=== PATIENT | female | born 1945 | race Caucasian/White ===

== ENCOUNTER 2017-05-09 18:24 | Inpatient (IN) ==
[2017-05-09 19:56] LABS: MANUAL DIFF NEEDED? NO
[2017-05-09 20:07] LABS: BASO% 0.2 % (0.0-0.8); EOS# 0.16 X1000 (0.0-0.7); EOS% 1.4 % (0.0-10.0); HEMATOCRIT 37.6 % (37.0-47.0); HEMOGLOBIN 13.2 g/dL (12.0-16.0); IMM GRAN# 0.02 X1000 (0.0-0.04); IMM GRAN% 0.2 % (0.0-0.5); LYMPH# 1.61 X1000 (1.2-3.4); LYMPH% 14.5 % (20.5-51.1); MCH 27.6 PG (27-31); MCHC 35.1 g/dL (33-37); MCV 78.7 FL (81-99); MONO# 0.65 X1000 (0.11-0.59); MONO% 5.8 % (1.7-9.3); MPV 12.4 FL (7.4-10.4); NEUT% 77.9 % (42.2-75.2); PLT 129 X1000 (130-400); RBC 4.78 XMIL (4.2-5.4)
[2017-05-09] MEDS: ZOFRAN IV PRN (20:25)
[2017-05-09] MEDS: NS 1,000 ML IV SCH (20:26)
[2017-05-09 21:09] LABS: ALBUMIN 4.1 g/dL (3.5-5.0); CALCIUM 9.8 mg/dL (8.8-10.2); POTASSIUM 5.6 mmol/L (3.5-5.1); TOTAL BILIRUBIN 0.84 mg/dL (0.20-1.00); TOTAL PROTEIN 7.9 g/dL (6.3-8.3)
[2017-05-09] MEDS ORDERED: KAYEXALATE PO ONE (21:20)
[2017-05-09] MEDS ORDERED: NS 500 ML IV ONE (21:20)
[2017-05-09] MEDS: LANTUS SUBQ SCH (21:44)
[2017-05-09] MEDS: ULTRAM PO PRN (22:40)
[2017-05-09] MEDS: ROBAXIN PO PRN (22:40)
[2017-05-09] MEDS: DESYREL PO PRN (22:40)
--- NOTE | 2017-05-09 22:45 | HISTORY AND PHYSICAL ---
PRIMARY CARE PHYSICIAN: Giovani Mariee MD. CHIEF COMPLAINT: Abdominal pain, nausea, vomiting. HISTORY OF PRESENT ILLNESS: A 71-year-old, white female with a complicated past medical history presents for evaluation of the above-mentioned symptoms. Current history of present illness began on Saturday. At that time, the patient developed profound fatigue. The patient states she attributed this to a busy weekend. She required significant rest and stayed in bed the vast majority of the time on Saturday and Saturday. Yesterday, symptoms increased to include nausea, vomiting, and abdominal discomfort. She has had subjective fevers, but denies chills, hematochezia, melena, urinary symptoms, and shortness of breath. PO intake has been minimal. Her bowel movements have been unchanged without evidence of melena or hematochezia. Because of the patient's progressive symptoms, patient presented to my office for further evaluation and management. Patient was found to have intractable nausea and vomiting with hyponatremia. Patient will be admitted to the hospital for full evaluation and management of this condition. Of note, patient has had a sick contact in her . He suffered from a GI illness last week. In addition to the above-mentioned symptoms, patient complains of increasing reflux with associated belching. Otherwise, she denies significant cardiac symptoms including palpitations or shortness of breath. PAST MEDICAL HISTORY: 1. Allergic rhinitis. 2. History of an abnormal skin examination with multiple seborrheic keratoses, rosacea, and edema. 3. Mild carotid artery disease. 4. History of multiple episodes of chest pain with negative echocardiography and stress testing. 5. Cholelithiasis status post laparoscopic cholecystectomy in 1993. 6. Iron deficiency anemia. 7. Type 2 diabetes, insulin dependent. 8. Reflux disease. 9. Hypertension. 10. Menorrhagia status post ISHAAN/unilateral S0 in 1973. 11. Syncope diagnosed in early 1999. 12. Nonalcoholic fatty liver disease with associated cirrhosis. 13. Hypothyroidism. 14. Low back pain. 15. Depression. 16. Obesity. 17. Osteoarthritis. 18. Osteopenia. 19. History of peptic ulcer disease in the . 20. Postmenopausal state. 21. Family history of ischemic heart disease. 22. Chronic thrombocytopenia. 23. Insomnia. 24. History of urethral diverticulum status post resection in 2012. 25. Mild valvular heart disease. 26. Intermittent headaches. CURRENT MEDICATIONS: 1. Aspirin 81 mg daily. 2. Evista 60 mg daily. 3. Lantus 10 units at bedtime. 4. Humalog 2 units with meals. 5. Irbesartan 300 mg daily. 6. Levothyroxine 137 mcg daily. 7. Pantoprazole 40 mg daily. 8. Robaxin as needed. 9. Phenergan as needed. 10. Spironolactone 50 mg daily. 11. Tramadol 1 tablet 3 times daily as needed. 12. Trazodone 50 mg at bedtime. ALLERGIES: 1. Patient states she is allergic to dobutamine which caused a near syncopal episode. 2. Iron which causes nausea and vomiting. 3. Lexapro which causes nausea and vomiting. SOCIAL HISTORY: Patient is a former smoker. She quit in 1958. She smoked socially for 1 year. She quit alcohol in 1986. She denies illicit drug use. 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 She enjoys traveling and exercises intermittently. FAMILY HISTORY: Patient's father passed at age 72 secondary to complications of Alzheimer's dementia. Patient's mother passed at age 82 secondary to complications of acute myocardial infarction. She has a history of hyperlipidemia, atrial fibrillation, and diabetes. REVIEW OF SYSTEMS: A 12 point review of systems was performed. Pertinent positives and negatives noted in history present illness. PHYSICAL EXAMINATION: VITAL SIGNS: Temperature 98.5 degrees, heart rate 69, respirations 18, blood pressure is 146/66. GENERAL: Ill-appearing, in no acute distress. HEENT: Normocephalic, atraumatic. Pupils equal, round, reactive to light. Extraocular muscles intact. Sclerae anicteric. [place] conjunctivae. Oral and nasopharynx clear without exudate. NECK: Supple. No lymphadenopathy. No thyromegaly. No bruits auscultated. CARDIOVASCULAR: Regular rate and rhythm. No significant murmurs, rubs, or gallops. PULMONARY: Clear to auscultation bilaterally. ABDOMEN: Soft. Tender in the epigastric region. Nondistended. Positive bowel sounds. EXTREMITIES: Moves all extremities well. No significant clubbing, cyanosis, or edema. NEUROLOGIC EXAMINATION: Cranial nerves 2 through 12 grossly intact. Motor and sensory grossly intact. PSYCHOLOGIC: Examination is appropriate. LABORATORY DATA: White blood cell count 11.13, hemoglobin 13.2, hematocrit 37.6 , platelet count 129,000. Sodium 127, potassium 5.6, chloride 88, bicarbonate 21, BUN 44, creatinine 1.2, glucose 127, calcium 9.8, total bilirubin 0.84, total protein 7.9, albumin 4.1, alkaline phosphatase 61, AST 27, ALT 24, amylase 81, lipase 89. ASSESSMENT AND PLAN: A 71-year-old, white female with a very complicated past medical history presents for evaluation of intractable nausea and vomiting. In addition, patient has been found to have hyponatremia, mild hyperkalemia, and mild renal insufficiency. Patient will be admitted to the hospital for full evaluation and management of each of these conditions. 1. Admit to General Medicine. 2. Intractable nausea and vomiting - I suspect this is secondary to an underlying viral illness as her recently has exhibited similar symptoms. We will start patient on cautious hydration. We will initiate as needed Zofran. We will follow patient's clinical course closely. 3. Hyponatremia - Patient's sodium is 127. We will start patient on normal saline fluid replacement. We will follow serial sodium evaluations. 4. Hyperkalemia - This likely is secondary to a combination of minimal renal insufficiency and spironolactone use. We will cautiously, but aggressively hydrate. We will follow serial evaluations. We will provide 1 dose of Kayexalate. 5. Mild renal insufficiency - Patient's BUN is 44 and creatinine 1.2. As above , we will initiate cautious hydration. 6. Profound weakness - This likely is secondary to her above condition. We will follow this. 7. Nonalcoholic cirrhosis - We will remain aware, especially in the setting of hydration. At this point, I suspect this is noncontributory, however, we will remain aware that abdominal discomfort could be secondary to spontaneous bacterial peritonitis. I do not , however, appreciate a significant amount of fluid on examination today. 8. Abdominal discomfort - As above, I suspect this is secondary to a viral illness. We will remain aware. 9. Hypertension - Patient's antihypertensive agents will be held for right now. We will reinitiate these when acceptable. 10. Fluid, electrolytes, nutrition. We will monitor electrolytes. Normal saline bolus of 500 mL followed by NS at KVO. 11. Prophylaxis- Patient will be placed on SCDs. cc: MD CAMACHO Paredes
[2017-05-09 23:03] LABS: URINE MICRO REVIEW NEEDED? NO; URINE SOURCE CLEAN CATCH
[2017-05-09 23:58] LABS: BILIRUBIN URINE NEGATIVE (NEGATIVE); BLOOD URINE NEGATIVE (NEGATIVE); COLOR YELLOW; GLUCOSE URINE NEGATIVE (NEGATIVE); LEUKOCYTES URINE MODERATE (NEGATIVE); NITRITE URINE NEGATIVE (NEGATIVE); PH URINE 5.5; PROTEIN URINE NEGATIVE (NEGATIVE); SP GRAVITY URINE 1.018; TURBIDITY URINE CLEAR (CLEAR); UROBILINOGEN URINE NORMAL (NORMAL)
[2017-05-09 23:59] LABS: UR EPITHELIAL CELLS <10 /HPF (<10); URINE BACTERIA NEGATIVE /HPF; URINE RBC <10 /HPF (<10)
[2017-05-10 00:07] LABS: URINE CULTURE NEEDED? YES
[2017-05-10] MEDS: ZOFRAN IV PRN (00:37)
[2017-05-10] MEDS: HUMALOG SUBQ SCH ×3 (06:05→16:31)
[2017-05-10] MEDS: NS 1,000 ML IV SCH (06:05)
[2017-05-10 06:58] LABS: MANUAL DIFF NEEDED? NO
[2017-05-10 07:17] LABS: BASO% 0.1 % (0.0-0.8); EOS# 0.13 X1000 (0.0-0.7); EOS% 1.4 % (0.0-10.0); HEMATOCRIT 33.5 % (37.0-47.0); HEMOGLOBIN 11.7 g/dL (12.0-16.0); IMM GRAN# 0.02 X1000 (0.0-0.04); IMM GRAN% 0.2 % (0.0-0.5); LYMPH# 1.34 X1000 (1.2-3.4); LYMPH% 14.9 % (20.5-51.1); MCH 27.7 PG (27-31); MCHC 34.9 g/dL (33-37); MCV 79.2 FL (81-99); MONO# 0.78 X1000 (0.11-0.59); MONO% 8.7 % (1.7-9.3); MPV 11.1 FL (7.4-10.4); NEUT% 74.7 % (42.2-75.2); PLT 97 X1000 (130-400); RBC 4.23 XMIL (4.2-5.4)
[2017-05-10 07:30] LABS: ALBUMIN 3.8 g/dL (3.5-5.0); CALCIUM 9.2 mg/dL (8.8-10.2); POTASSIUM 4.9 mmol/L (3.5-5.1); TOTAL BILIRUBIN 0.72 mg/dL (0.20-1.00)
[2017-05-10] MEDS ORDERED: BENTYL PO PRN (08:57)
[2017-05-10] MEDS ORDERED: BENTYL PO ONE (08:57)
[2017-05-10] MEDS: SYNTHROID PO SCH (09:55)
[2017-05-10] MEDS: ASPIRIN PO SCH (09:56)
[2017-05-10] MEDS: PROTONIX PO SCH (09:56)
[2017-05-10] MEDS: ROCEPHIN 1 GM/NS 1 GM/50 ML IVPB IV SCH (09:56)
[2017-05-10] MEDS: EVISTA PO SCH (09:56)
--- NOTE | 2017-05-10 19:01 | PROGRESS NOTE ---
DATE: 05/10/2017 SUBJECTIVE: The patient was admitted yesterday with intractable abdominal pain, nausea, and vomiting. Laboratory data was significant for hyponatremia and hyperkalemia. Patient was started on cautious hydration. Kayexalate was provided. Over the course of the 1st 12 hours, patient's overall condition improved. The patient was initially seen this morning. She continued to complain of significant abdominal discomfort and intermittent nausea. A dose of Bentyl therapy was provided secondary to cramping. Throughout the day today, patient's overall condition improved. She began to tolerate p.o. This evening, she states she is feeling much better. She denies fevers, chills, current nausea, recent vomiting, shortness of breath, or chest discomfort. OBJECTIVE: T-max is 98.5 degrees, heart rate 68-89, respirations 14 blood pressure 121 to 122 over 52 to 58.General: Well nourished, well developed, no acute distress. Cardiovascular: Regular rate and rhythm. No significant murmurs, rubs, or gallops. Pulmonary: Clear to auscultation bilaterally. Abdomen: Soft, diffusely tender without guarding or rebound. Positive bowel sounds. Extremities: Moves all extremities well. No significant clubbing, cyanosis, or edema. Dermatologic: Evaluation reveals no evidence of rash. LABORATORY DATA: White blood cell count 8.98, hemoglobin 11.7, hematocrit 33.5, platelet count 97,000. Sodium 131, potassium 4.9, chloride 95, bicarb 22, BUN 40, creatinine 1.3, glucose 134. Calcium 9.2, total bilirubin 0.72, total protein 7.0, albumin 3.8, alkaline phosphatase 56, AST 27, ALT 21. ASSESSMENT AND PLAN: 1. Intractable nausea and vomiting - I suspect this was secondary to a viral illness. The patient has achieved improvement. We will continue as needed Zofran therapy. We will cautiously hydrate. 2. Abdominal cramping - I suspect this is secondary to her viral illness. We will continue as needed Bentyl therapy as she has achieved improvement. 3. Hyponatremia - patient achieved improvement with hydration. We will continue current rate of normal saline. 4. Hyperkalemia - patient achieved improvement with hydration and Kayexalate therapy. 5. Mild renal insufficiency - patient's BUN and creatinine remain slightly above her baseline. As above, we will continue hydration. 6. Profound weakness - patient has achieved improvement. We will encourage increasing activity. 7. Nonalcoholic cirrhosis - we will remain aware, especially in the setting of IV hydration. We will continue a hepatic diet. 8. Diabetes - patient will be continued on her current dose of insulin therapy. 9. Hypertension - patient's antihypertensive agents have been held for right now. We will plan to resume these once acceptable. 10. Urinary tract infection- patient has a slightly abnormal urinalysis. Rocephin was initiated. We will follow cultures. 11. Disposition - at this point, patient continues to require group home care in a hospital setting. We will plan discharge home once appropriate. cc: Giovani Mariee MD
[2017-05-10] MEDS: ULTRAM PO PRN (20:40)
[2017-05-10] MEDS: DESYREL PO PRN (20:41)
[2017-05-10] MEDS: ROBAXIN PO PRN (20:41)
[2017-05-10] MEDS: LANTUS SUBQ SCH (21:45)
[2017-05-11] MEDS: NS 1,000 ML IV SCH (04:57)
[2017-05-11 06:10] LABS: MANUAL DIFF NEEDED? NO
[2017-05-11 06:26] LABS: ALBUMIN 3.3 g/dL (3.5-5.0); CALCIUM 8.4 mg/dL (8.8-10.2); POTASSIUM 4.5 mmol/L (3.5-5.1); TOTAL BILIRUBIN 0.59 mg/dL (0.20-1.00); TOTAL PROTEIN 6.1 g/dL (6.3-8.3)
[2017-05-11 06:28] LABS: BASO% 0.7 % (0.0-0.8); EOS# 0.27 X1000 (0.0-0.7); EOS% 6.1 % (0.0-10.0); HEMATOCRIT 30.3 % (37.0-47.0); HEMOGLOBIN 10.1 g/dL (12.0-16.0); LYMPH# 1.52 X1000 (1.2-3.4); LYMPH% 34.2 % (20.5-51.1); MCH 27.1 PG (27-31); MCHC 33.3 g/dL (33-37); MCV 81.2 FL (81-99); MONO# 0.54 X1000 (0.11-0.59); MONO% 12.1 % (1.7-9.3); MPV 11.2 FL (7.4-10.4); NEUT% 46.9 % (42.2-75.2); PLT 74 X1000 (130-400); RBC 3.73 XMIL (4.2-5.4)
[2017-05-11] MEDS: HUMALOG SUBQ SCH (06:28)
[2017-05-11 08:40] VITALS: BP 117/100
[2017-05-11] MEDS: ROCEPHIN 1 GM/NS 1 GM/50 ML IVPB IV SCH (08:50)
[2017-05-11] MEDS: SYNTHROID PO SCH (08:50)
[2017-05-11] MEDS: EVISTA PO SCH (08:50)
[2017-05-11] MEDS: ASPIRIN PO SCH (08:50)
[2017-05-11] MEDS: PROTONIX PO SCH (08:50)
--- NOTE | 2017-05-11 17:41 | DISCHARGE SUMMARY ---
ADMISSION DATE: 05/09/2017 DISCHARGE DATE: 05/11/2017 ADMISSION DIAGNOSES: 1. Abdominal pain. 2. Nausea. 3. Vomiting. DISCHARGE DIAGNOSES: 1. Intractable nausea and vomiting, resolved. 2. Abdominal cramping, resolved. 3. Hyponatremia, improved. 4. Hyperkalemia, improved. 5. Mild renal insufficiency, improved. 6. Profound weakness, improved. 7. Nonalcoholic fatty liver disease with associated cirrhosis, present on arrival. 8. Diabetes, present on arrival. 9. Hypertension, present on arrival. 10. Possible urinary tract infection. CONSULTATIONS: None. PROCEDURES: None. HISTORY AND PHYSICAL EXAMINATION: See admit note. PHYSICAL EXAMINATION PRIOR TO DISCHARGE: Vital Signs: Temperature 97.9 degrees, heart rate 70, respirations 16, blood pressure is 117/100. General: Well nourished, well developed, in no acute distress. Cardiovascular: Regular rate and rhythm. No significant murmurs, rubs, or gallops. Pulmonary: Clear to auscultation bilaterally. Abdomen: Soft, nontender, nondistended. Positive bowel sounds. Extremities: Moves all extremities well. No significant clubbing, cyanosis, or edema. Dermatologic: Evaluation reveals no evidence of rash. LABORATORY DATA: White blood cell count 4.45, hemoglobin 10.1, hematocrit 30.3, platelet count 74,000. Sodium 137, potassium 4.5, chloride 101, bicarb 24, BUN 39, creatinine 1.1, glucose 82, calcium 8.4, total bilirubin 0.59, total protein 6.1, albumin 3.3. Alkaline phosphatase 44, AST 22, ALT 17. HOSPITAL COURSE: Patient was admitted as per history and physical examination. Hospital course per condition is as follows. 1. Intractable nausea and vomiting - upon admission, patient was noted to have intractable nausea and vomiting with associated abdominal cramping. She had a significant sick contact in her as he had a GI illness last week. The patient was treated supportively with IV fluids and antiemetic agents. With treatment, patient achieved improvement. At time of discharge, she was tolerating p.o. Patient states she felt well. 2. Abdominal cramping- this likely was secondary to her underlying viral illness. The patient was started on Bentyl therapy with significant improvement. We will provide a prescription to be used as needed as an outpatient. 3. Hyponatremia - This likely was secondary to her acute viral illness. With IV fluids, patient's sodium normalized. At the time of discharge, sodium was 137. We will follow this as an outpatient. 4. Hyperkalemia - upon admission, patient was noted to have elevation in her potassium. She was treated with IV fluids and Kayexalate. This likely was secondary to a combination of dehydrated state, mild renal insufficiency, and spironolactone/ARB use. The patient's spironolactone and irbesartan were held. She was treated with Kayexalate and normal saline. Her potassium has since normalized. We will reintroduce irbesartan and spironolactone at a lesser dose tomorrow. We will follow this as an outpatient as well. 5. Mild renal insufficiency - upon admission, patient's creatinine was noted to be 1.2 with a BUN of 44. At time of discharge, BUN was 39 with a creatinine 1.1. We will continue to encourage hydration as an outpatient. 6. Profound weakness - this likely is secondary to her acute illness. She has achieved improvement with improvement in her overall condition. 7. Nonalcoholic cirrhosis - patient has progressive disease. We will need to monitor her volume status closely as we provided a limited amount of normal saline while hospitalized. As above, we will resume spironolactone tomorrow. 8. Diabetes - the patient has longstanding disease. She was continued on her current dosage of insulin therapy while hospitalized. Blood sugars remained controlled. 9. Hypertension - patient's irbesartan and spironolactone were held while hospitalized. We will resume therapy tomorrow. We will ask patient to monitor blood pressures closely. 10. Urinary tract infection - this was a questionable diagnosis. Urinalysis returned slightly abnormal. Urine culture, however, returned negative. The patient was treated with 2 doses of Rocephin while hospitalized. With improvement in her condition and negative cultures, we will discontinue antibiotic therapy. 11. Leukopenia, anemia, thrombocytopenia - this was noted at time of discharge. White blood cell count was 4.45, hemoglobin 10.1, hematocrit 30.3, platelet count 74,000. I suspect this is secondary to her underlying cirrhosis and dilutional with IV fluids. We will recheck this as an outpatient as well. DISCHARGE CONDITION: Good. DISPOSITION: Discharge to home. MEDICATIONS: 1. Dicyclomine 10 mg 3 times daily as needed. 2. Lantus 10 units at bedtime. 3. Lispro 2 units 3 times daily with meals. 4. Levothyroxine 137 mcg daily. 5. Methocarbamol 750 mg 3 times daily as needed. 6. Pantoprazole 40 mg daily. 7. Evista 60 mg daily. 8. Tramadol 50 mg every 6 hours as needed. 9. Trazodone 50 mg at bedtime. 10. Acetaminophen 650 mg every 4 hours as needed. 11. Lasix 40 mg daily as needed. 12. Irbesartan 300 mg daily. 13. Spironolactone 1/2 to 1 tablet daily. 14. Reglan 5 mg 3 times daily as needed. Patient has been instructed to discontinue aspirin therapy. cc: Giovani Mariee MD
== END 2017-05-11 12:56 | disposition home or self-care (01) ==
LOC: DIRADM 18:24 → 3N 18:42
PROVIDERS: ADMIT Internal Medicine; ATTEND Internal Medicine

== ENCOUNTER 2018-12-29 14:07 | Inpatient (IN) ==
[2018-12-29] MEDS ORDERED: ZOFRAN IV PRN (16:55)
[2018-12-29] MEDS ORDERED: SALINE LOCK IV FLUID XX ONE (16:55)
[2018-12-29] MEDS ORDERED: FLU VACCINE IM ONE (17:17)
[2018-12-29 18:05] LABS: BASO# 0.04 X1000 (0.0-0.2); EOS# 0.15 X1000 (0.0-0.7); EOS% 3.9 % (0.0-10.0); HEMATOCRIT 31.7 % (37.0-47.0); HEMOGLOBIN 10.3 g/dL (12.0-16.0); LYMPH# 0.93 X1000 (1.2-3.4); LYMPH% 23.9 % (20.5-51.1); MCH 28.4 PG (27-31); MCHC 32.5 g/dL (33-37); MCV 87.3 FL (81-99); MONO% 7.7 % (1.7-9.3); MPV 8.3 FL (7.4-10.4); NEUT# 2.47 X1000 (1.4-6.5); NEUT% 63.5 % (42.2-75.2); PLT 124 X1000 (130-400); RBC 3.63 XMIL (4.2-5.4); RDW 21.2 % (11.5-14.5); WBC 3.89 X1000 (4.8-10.8)
[2018-12-29 18:08] LABS: URINE SOURCE CLEAN CATCH
[2018-12-29 18:12] LABS: BILIRUBIN URINE NEGATIVE (NEGATIVE); BLOOD URINE SMALL (NEGATIVE); COLOR YELLOW; GLUCOSE URINE NEGATIVE (NEGATIVE); KETONE URINE NEGATIVE (NEGATIVE); LEUKOCYTES URINE NEGATIVE (NEGATIVE); NITRITE URINE NEGATIVE (NEGATIVE); PROTEIN URINE 30 mg/dL (NEGATIVE); SP GRAVITY URINE 1.025; TURBIDITY URINE CLEAR (CLEAR); UROBILINOGEN URINE 2 mg/dL (NORMAL)
[2018-12-29 18:21] LABS: UR EPITHELIAL CELLS <10 /HPF (<10); URINE BACTERIA NEGATIVE /HPF; URINE RBC <10 /HPF (<10); URINE WBC <10 /HPF (<10)
[2018-12-29 18:30] LABS: URINE CASTS NONE SEEN; URINE CRYSTALS NONE SEEN; URINE YEAST NONE SEEN
[2018-12-29 18:32] LABS: TSH 1.27 uIUmL (0.27-4.20)
[2018-12-29 18:35] LABS: FREE T4 2.22 ng/dL (0.93-1.70)
[2018-12-29 18:48] LABS: AGAP 14; ALB/GLOB RATIO 0.9; ALBUMIN 3.1 g/dL (3.5-5.0); ALKALINE PHOSPHATASE 140 U/L (32-104); BUN 11 mg/dL (8-22); CALCIUM 9.1 mg/dL (8.8-10.2); CHLORIDE 108 mmol/L (98-107); COSMO 284; CREATININE 0.7 mg/dL (0.5-0.9); ESTIMATED GFR > 60; GLUCOSE 91 mg/dL (70-104); GOT 47 U/L (10-30); GPT 42 U/L (10-36); POTASSIUM 4.3 mmol/L (3.5-5.1); SODIUM 143 mmol/L (136-145); TCO2 21 mmol/L (25-35); TOTAL BILIRUBIN 2.95 mg/dL (0.20-1.00); TOTAL PROTEIN 6.5 g/dL (6.3-8.3)
[2018-12-29 18:58] LABS: CK PROFILE 206 U/L (24-173)
[2018-12-29 19:14] LABS: CK INDEX 3.1 (0.0-2.5)
--- NOTE | 2018-12-29 19:18 | Diag Imaging Result Doc PS360 ---
EXAM: CHEST-PORTABLE 12/29/2018 HISTORY: Shortness of breath TECHNIQUE: AP portable at 1857 COMMENT: There is opacification the left base which is probably a combination of pleural fluid and atelectasis or pneumonia in the lingula and lower lobe. There is also some small pleural fluid collection on the right. None of these findings were present on 02/28/2015. IMPRESSION: Lingular and left lower lobe pneumonia with left pleural effusion and small right pleural effusion. Electronically signed by Skip Ga 12/29/2018 7:16 PM
[2018-12-29] MEDS ORDERED: LASIX IV ONE (21:02)
[2018-12-29] MEDS: BASAGLAR SUBQ SCH (21:50)
--- NOTE | 2018-12-29 22:31 | HISTORY AND PHYSICAL ---
PRIMARY CARE PHYSICIAN: Dr. Giovani Mariee. CHIEF COMPLAINT: Profound weakness and shortness of breath. HISTORY OF PRESENT ILLNESS: A 73-year-old white female with a complicated past medical history presents for evaluation of above-mentioned symptoms. Pertinent history of present illness began on December 09. At that time, patient was admitted to [facility] for TIPS procedure. The patient's post procedure course was complicated by hypotension followed by profound transaminitis and elevated cardiac enzymes. Transaminitis was felt secondary to "shock liver." Elevated cardiac enzyme evaluation included stress testing which returned acceptable. This was ultimately felt to be ischemia secondary to hypotension. The patient was discharged home after 3 days of hospitalization. The following week, patient did reasonably well. Last week, unfortunately, patient developed progressive weakness. By Saturday, she noted profound increase in shortness of breath. The patient denied chest pains, palpitations, significant cough, congestion, fevers and chills. Over the weekend, patient was unable to walk even short distances without shortness of breath. She noted orthopnea and PND. Because of patient's profound symptoms, she contacted my office. Patient was immediately admitted to the hospital for further evaluation and management. Chest x-ray suggested a underlying pneumonia and a large left-sided pleural effusion. Labs were significant for an elevated bilirubin and chronic anemia. The patient will be admitted to the hospital for full evaluation and management of pleural effusion with probable underlying pneumonia. PAST MEDICAL HISTORY: 1. Allergic rhinitis. 2. Multiple nevi, seborrheic keratoses and rosacea. 3. Minimal carotid artery disease. 4. Cholelithiasis status post laparoscopic cholecystectomy in 1993. 5. Iron deficiency anemia. 6. Type 2 diabetes. 7. Reflux disease. 8. Hypertension. 9. Premenopausal menorrhagia status post ISHAAN/unilateral SO in 1973. 10. History of syncope in the early with negative evaluation. 11. Nonalcoholic fatty liver cirrhosis requiring TIPS on 12/09/[address] Malcolm. 12. Hypothyroidism. 13. Low back pain. 14. Depression. 15. Obesity. 16. Osteoarthritis. 17. Osteopenia. 18. Postmenopausal state. 19. Chronic thrombocytopenia. 20. Insomnia. 21. History of a urethral diverticulum status post resection in August 2013. 22. Mild valvular heart disease. 23. Intermittent headaches. CURRENT MEDICATIONS: 1. Aspirin 81 mg daily. 2. Irbesartan 150 mg daily. 3. Lactulose as needed. 4. Pantoprazole 40 mg daily. 5. Robaxin 500 mg every 8 hours as needed. 6. Singulair 10 mg daily. 7. Synthroid 125 mcg daily. 8. Tramadol as needed. 9. Trazodone 50 mg at bedtime as needed. 10. Tums twice daily. 11. Vitamin B12 1000 mcg daily. 12. Lantus 10 units at bedtime. 13. NovoLog 2 to 5 units with meals. ALLERGIES: The patient states Cymbalta causes fatigue, dobutamine causes nausea, vomiting, diarrhea, and near syncope, iron causes nausea, vomiting, Lexapro causes nausea, vomiting, and spironolactone causes muscle cramping. SOCIAL HISTORY: Patient smoked socially for 1 year. She quit in 1958. She denies alcohol or illicit drug use. 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 She enjoys traveling. She exercises intermittently. FAMILY HISTORY: Patient's father passed at age 72 secondary to complications of Alzheimer dementia. Patient's mother passed at age 82 secondary to complications of acute myocardial infarction. She had a history of hyperlipidemia, atrial fibrillation, and diabetes. REVIEW OF SYSTEMS: A 12 point review of systems was performed. Pertinent positives and negatives are noted in history present illness. PHYSICAL EXAMINATION: VITAL SIGNS: Temperature 98 degrees, heart rate 90, respirations 22, blood pressure is 141/46. GENERAL: Well nourished, well developed, no acute distress. HEENT: Normocephalic, atraumatic. Pupils equal, round, react to light. Extraocular muscles intact. Sclerae anicteric. Pale conjunctivae. Oral and nasopharynx clear without exudate. NECK: Supple. No lymphadenopathy. No thyromegaly. No bruits auscultated. CARDIOVASCULAR: Regular rate and rhythm. No significant murmurs, rubs, or gallops. PULMONARY: Decreased breath sounds at the left base. Reasonable air movement. ABDOMEN: Soft, nontender, minimally distended. Positive bowel sounds. EXTREMITIES: Moves all extremities well. No significant clubbing, cyanosis, or edema. NEUROLOGIC: Cranial nerves 2-12 grossly intact. Motor and sensory grossly intact. PSYCHOLOGIC: Appropriate. LABORATORY DATA: White blood cell count 3.89, hemoglobin 10.3, hematocrit 31.7, platelet count 124,000. Sodium 143, potassium 4.3, chloride 108, bicarb 21, BUN 11, creatinine 0.7, glucose 91, calcium 9.1, total bilirubin 2.95, total protein 6.5, albumin 3.1, alkaline phosphatase 140, AST 47, ALT 42, ammonia 28. TSH 1.27, free T4 2.22. Urinalysis reveals small blood and 30 protein. Chest x-ray suggests lingular and left lower lobe pneumonia with left pleural effusion and small right pleural effusion. ASSESSMENT AND PLAN: A 73-year-old white female with a complicated past medical history presents for evaluation of profound fatigue and shortness of breath. Patient is status post recent transjugular intrahepatic portosystemic shunt procedure. Chest evaluation thus far has revealed probable pneumonia with a pleural effusion. The patient will be admitted to the hospital for full evaluation and management. 1. Admit to General Medicine. 2. Probable pneumonia-2 weeks out, this would suggest probable community-acquired, however I cannot fully rule out hospital acquired and aspiration. The patient will be placed on Rocephin and azithromycin therapy. We will follow patient's clinical course to determine if broadening antibiotic is appropriate. 3. Left pleural effusion-we will attempt to diuresis with Lasix. If unsuccessful, we may need to consider thoracentesis. Certainly, this could represent underlying exudative effusion in setting of pneumonia. We will follow this. 4. Nonalcoholic cirrhosis-patient is status post recent TIPS procedure. Bilirubin remains slightly elevated as does her transaminases. Ammonia, however, is acceptable. We will remain aware. 5. Profound weakness-this is likely a consequence of her acute illness. Once able, we will initiate physical therapy. 6. Diabetes-we will continue Lantus therapy. 7. Reflux disease-we will continue patient on pantoprazole therapy. 8. Hypothyroidism-we will continue levothyroxine replacement. 9. Fluid, electrolytes, nutrition-we will monitor electrolytes, saline lock IV. Diabetic diet. 10. Prophylaxis. Patient will be placed on SCDs. cc: Giovani Mariee MD
[2018-12-29] MEDS: ROCEPHIN 1 GM in NS 50 ML IV SCH (23:18)
[2018-12-29] MEDS ORDERED: NS 500 ML ONE (23:20)
[2018-12-29] MEDS: ROBAXIN PO PRN (23:28)
[2018-12-29] MEDS: DESYREL PO PRN (23:28)
[2018-12-29] MEDS: ULTRAM PO PRN (23:28)
[2018-12-29] MEDS: ZITHROMAX 500 MG/NS 500 MG/250 ML IVPB IV SCH (23:55)
[2018-12-30] MEDS: PROTONIX PO SCH (06:09)
[2018-12-30] MEDS: SYNTHROID PO SCH (06:09)
[2018-12-30 07:26] LABS: INR 1.54; PROTIME 19.6 Seconds (11.0-16.0)
[2018-12-30 07:27] LABS: PTT 39.3 Seconds (22.3-41.8)
[2018-12-30 07:33] LABS: AGAP 11; ALBUMIN 3.1 g/dL (3.5-5.0); ALKALINE PHOSPHATASE 138 U/L (32-104); BUN 11 mg/dL (8-22); CALCIUM 8.5 mg/dL (8.8-10.2); CHLORIDE 108 mmol/L (98-107); COSMO 288; CREATININE 0.8 mg/dL (0.5-0.9); ESTIMATED GFR > 60; GLUCOSE 104 mg/dL (70-104); GOT 51 U/L (10-30); GPT 39 U/L (10-36); POTASSIUM 3.6 mmol/L (3.5-5.1); SODIUM 145 mmol/L (136-145); TCO2 26 mmol/L (25-35); TOTAL BILIRUBIN 2.56 mg/dL (0.20-1.00); TOTAL PROTEIN 6.2 g/dL (6.3-8.3)
--- NOTE | 2018-12-30 07:39 | EKG Report ---
Test Performed on : 12/29/2018 5:33:28 PM Test Reason : Weakness/ shortness of breath Blood Pressure : / mmHG Vent. Rate : 085 BPM Atrial Rate : 085 BPM P-R Int : 178 ms QRS Dur : 100 ms QT Int : 408 ms P-R-T Axes : 085 033 047 degrees QTc Int : 485 ms Sinus rhythm. with occasional premature ventricular complexes. and premature atrial complexes. Septal infarct (cited on or before 28-FEB-2015) Abnormal ECG When compared with ECG of 22-JAN-2017 13:23, premature ventricular complexes. are now present premature atrial complexes. are now present Confirmed by Gege SARGENT, Janes Quintero ([id number]) on 12/30/2018 9:31:19 AM
[2018-12-30] MEDS: AVAPRO PO SCH (08:38)
[2018-12-30] MEDS: ASPIRIN EC PO SCH (08:38)
[2018-12-30] MEDS ORDERED: LASIX IV ONE (11:23)
[2018-12-30] MEDS ORDERED: KLOR-CON PO ONE (11:24)
--- NOTE | 2018-12-30 12:30 | PROGRESS NOTE ---
DATE: 12/30/2018 SUBJECTIVE: Patient was admitted yesterday with a presumed pneumonia and large left pleural effusion with associated shortness of breath and profound weakness. The patient was started on IV antibiotics and IV Lasix therapy. Over the course of the first 12 hours, patient has achieved a modest improvement. She has normal saturations on oxygen supplementation. She does continue to have profound weakness. At present time, patient denies fevers, chills, nausea, vomiting, or chest discomfort. OBJECTIVE: Vital Signs: T-max at 98.2. Heart rate 84 to 90. Respirations 14 to 26. Blood pressure 126-163 over 46-62. General: Chronically ill appearing, no acute distress. Cardiovascular: Regular rate and rhythm. No significant murmurs, rubs, or gallops. Pulmonary: Decreased breath sounds at the left base. Reasonable air movement. Abdomen: Soft, nontender, nondistended. Positive bowel sounds. Extremities: Moves all extremities well. No significant clubbing or cyanosis. 1+ lower extremity edema bilaterally. Dermatologic: Evaluation reveals no evidence of rash. LABORATORY DATA: PT 19.6, INR is 1.54. PTT is 39.3. Sodium 145, potassium 3.6, chloride 108, bicarb 26, BUN 11, creatinine 0.8, glucose 104, calcium 8.5. Total bilirubin 2.56, total protein 6.2, albumin 3.1, alkaline phosphatase 138, AST 51, ALT 39. ASSESSMENT AND PLAN: 1. Probable pneumonia-this was noted per chest x-ray. We will continue patient on Rocephin and azithromycin therapy. She is afebrile. 2. Large left pleural effusion-this likely is a consequence of volume overload in the setting of cirrhosis. We will remain aware. This also could be a parapneumonic effusion. The patient did achieve some improvement clinically with Lasix intervention. We will again diurese today. We will consider whether a thoracentesis is necessary depending on her clinical improvement. 3. Nonalcoholic cirrhosis-patient is status post TIPS intervention on December 09. Bilirubin and transaminases remain slightly elevated. Her coagulation also is slightly prolonged. At this point, we will continue treatment as above. We will consult Dr. Garza for further post tips intervention guidance. 4. Profound weakness-this is likely the consequence of her acute illness and underlying cirrhosis. We will treat as above. Once able, we will initiate physical therapy. 5. Diabetes-we will continue patient on Lantus intervention. 6. Reflux disease-we will continue pantoprazole therapy. 7. Hypothyroidism-we will continue levothyroxine replacement. DISPOSITION: At this point, patient continues to require longterm care in a hospital setting. We will plan discharge home once appropriate. cc: Giovani Mariee MD
--- NOTE | 2018-12-30 14:05 | Diag Imaging Result Doc PS360 ---
EXAM: US GB < RUQ (LIMITED) HISTORY: Check TIPS patency TECHNIQUE: Right upper quadrant ultrasound COMPARISON: None. FINDINGS: Normal pancreas. Normal inferior vena cava. No abdominal aortic aneurysm. There is a small amount of fluid about the liver. Borderline mild increased renal echotexture. No hydronephrosis. There is flow within the hepatic stent/TIPS. There is a 2 cm hepatic cyst. The gallbladder has been removed. The common bile duct measures 7 mm. IMPRESSION: Patent TIPS. Electronically signed by Ham Soto 12/30/2018 2:03 PM
--- NOTE | 2018-12-30 20:06 | CONSULTATION ---
DATE OF CONSULTATION: 12/30/2018 REASON FOR CONSULTATION: Cirrhosis of the liver, history of recent TIPS procedure at [facility]. HISTORY OF PRESENT ILLNESS: This is a 73-year-old white female, known to our practice, whom we have followed for cirrhosis of the liver. The patient has been following with Dr. Malcolm at [facility] over the last year. She had recent TIPS procedure on December 09. After the procedure, she developed some complications and had to be in the hospital for 3 to 4 days. She states she had shock liver and had heart evaluation after the TIPS procedure. She was sent home off of diuretics. She states she did well for 1 to 2 weeks, and then last week, she had progressive weakness and shortness of breath. She had followed with Dr. Mariee, who admitted her to the hospital for further evaluation. Patient had chest x-ray that showed lingular and left lower lobe pneumonia with left pleural effusion and small right pleural effusion. She has been started on diuretics and antibiotics. Patient states her shortness of breath has improved slightly. Patient currently denies abdominal pain. PAST MEDICAL HISTORY: 1. Cirrhosis of the liver. Following at [facility] with recent TIPS procedure on 12/09. 2. History of valvular heart disease. 3. Chronic thrombocytopenia. 4. Coronary artery disease. 5. Gastroesophageal reflux disease. 6. Hypertension. 7. Type 2 diabetes. 8. Hypothyroidism. 9. Depression. 10. Osteoarthritis. 11. Osteopenia. PAST SURGICAL HISTORY: History of cholecystectomy in 1993, history of hysterectomy, history of recent TIPS at [facility] ALLERGIES: Dopamine causing anaphylaxis. HOME MEDICATIONS: 1. Tylenol 650 mg every 4 hours as needed. 2. Aspirin 81 mg daily. 3. Vitamin B12, 1000 mcg daily. 4. Lantus 15 units subcutaneous every night. 5. Insulin 70/30 as directed. 6. Avalide 150/12.5 daily. 7. Synthroid 125 mcg daily. 8. Robaxin 750 mg 3 times a day as needed. 9. Protonix 1 tablet daily. 10. Ultram 50 mg as needed. 11. Desyrel 50 mg every night as needed. SOCIAL HISTORY: She is . Quit tobacco use in the 1950s. No reported alcohol use. REVIEW OF SYSTEMS: Per History of Present Illness. PHYSICAL EXAMINATION: Vital Signs: Temperature 97.8 degrees, pulse 84, respirations 16, blood pressure 148/51. General: Patient is awake and alert. She does have some dyspnea noted. Cardiovascular: Some decreased breath sounds. Abdomen: Soft, obese, and nondistended. Nontender. Positive bowel sounds. Extremities: Bilateral lower extremity edema noted. DIAGNOSTIC DATA: Hematology: WBC 3.89, hemoglobin 10.3, hematocrit 31.7, MCV 87.3, platelets 124,000. Coagulation: Pro-time 19.6, INR 1.54, PTT 39.3. Chemistry: Sodium 145, potassium 3.6, chloride 108, CO2 of 26, BUN 11, creatinine 0.8, glucose 104, total bilirubin 2.56 AST 51, ALT 39, alkaline phosphatase 138, total protein 6.2, albumin 3.1. Imaging studies with chest x-ray showing left lower lobe pneumonia with left pleural effusion and small right pleural effusion. Abdominal ultrasound showed a small amount of fluid in the liver, borderline mild increased renal echotexture. No hydronephrosis. Flow: There is flow within the hepatic stent/ TIPS, a 2 cm hepatic cyst and common bile duct measuring 7 mm. Impression is patent TIPS. ASSESSMENT AND PLAN: 1. Pneumonia versus pleural effusion. Hepatic hydrothorax possible but less likely. Her TIPS is patent and fluid is predominantly on the left side. 2. Nonalcoholic cirrhosis of the liver with recent transjugular intrahepatic portosystemic shunt (TIPS) procedure on 12/09/2018. Following at [facility]. Agree to continue diuretics. We will continue to monitor and monitor her kidney function. 3. Weakness. Continue current medications. Physical Therapy to see. We will continue to follow and further plans will be made according to her progress. Dr. Garza has spoken with Dr. Mariee. Further plans to be made as needed. Thank you for this consultation. Dictated by JORDON Hanson for Kong Garza MD cc: JORDON Aparicio MD Scott A. Matthews, MD [facility] HOSPITALCharmaine
[2018-12-30] MEDS: ROCEPHIN 1 GM in NS 50 ML IV SCH (21:07)
[2018-12-30] MEDS: ULTRAM PO PRN (21:10)
[2018-12-30] MEDS: BASAGLAR SUBQ SCH (21:10)
[2018-12-30] MEDS: DESYREL PO PRN (21:10)
[2018-12-30] MEDS: ROBAXIN PO PRN (21:10)
[2018-12-30] MEDS: ZITHROMAX 500 MG/NS 500 MG/250 ML IVPB IV SCH (21:11)
[2018-12-30] MEDS ORDERED: INSULIN PEN NEEDLES ONE (21:13)
[2018-12-31] MEDS: PROTONIX PO SCH (06:35)
[2018-12-31] MEDS: SYNTHROID PO SCH (06:35)
[2018-12-31] MEDS: ASPIRIN EC PO SCH (08:40)
[2018-12-31] MEDS: AVAPRO PO SCH (08:40)
[2018-12-31] MEDS ORDERED: LASIX IV ONE (08:52)
--- NOTE | 2018-12-31 09:47 | Diag Imaging Result Doc PS360 ---
CT THORAX W/O CONTRAST - 12/31/2018 INDICATION: pneumonia/ pleural effusion/ shortness of breath COMPARISON: Chest x-ray 12/29/2018 FINDINGS: There are moderate bilateral pleural effusions that are symmetric and equal. There is a small to moderate amount of ascites. There is a TIPS shunt in good position. There is advanced hepatic cirrhosis. Anemia is present. Heart size is top normal. No adenopathy. The lungs are clear of infiltrate. There are moderate degenerative changes of the spine. No acute or suspicious bony lesion. IMPRESSION: Advanced cirrhosis. Ascites. Moderate, symmetric bilateral pleural effusions. This exam was performed using automated exposure control, adjustment of mA or kV according to patient size, and/or use of iterative reconstruction technique Electronically signed by Nestor Paul 12/31/2018 9:45 AM
--- NOTE | 2018-12-31 14:20 | PROGRESS NOTE ---
DATE: 12/31/2018 SUBJECTIVE: Patient was sitting up on the side of the bed. She states she does feel some better. She was able to walk out in the bowles where as yesterday she could not even walk to the door without having significant shortness of breath. She had a CT scan of the thorax that showed advanced cirrhosis, ascites, TIPS shunt in good positioned, and moderate symmetric bilateral pleural effusions. OBJECTIVE: Vital Signs: Temperature 97.6 degrees, pulse 88, respirations 16, blood pressure 143/75. General: Patient was awake and alert. Sitting on the side of the bed , in no acute distress. Abdomen: Full but soft and nontender. Positive bowel sounds. Respiratory: Lung sounds decreased. LABORATORY: Hematology: WBC 3.89, hemoglobin 10.3, hematocrit 31.7. Chemistry : Sodium 145, potassium 3.6, chloride 108, CO2 26, BUN 11, creatinine 0.8, glucose 104, total bilirubin 2.56, AST 51, ALT 39, alkaline phosphatase 138. ASSESSMENT AND PLAN: 1. Bilateral pleural effusions. 2. Nonalcoholic cirrhosis of the liver with recent TIPS procedure on 12/09/2018 at [facility]. Following with Dr. Malcolm. 3. Dyspnea, shortness of breath is improving. She has received diuretics. Will continue to follow and further plans will be made according to her progress. I have discussed this case with Dr. Garza. Dictated by JORDON Hanson for Kong Garza MD Pt sitting up in the chair and claims she is feeling and breathing better. to continue diuretics and follow. cc: JORDON Aparicio MD Scott A. Matthews, MD MTDD
[2018-12-31 15:09] LABS: AGAP 10; BUN 16 mg/dL (8-22); CALCIUM 8.7 mg/dL (8.8-10.2); CHLORIDE 103 mmol/L (98-107); COSMO 283; CREATININE 0.9 mg/dL (0.5-0.9); ESTIMATED GFR > 60; GLUCOSE 167 mg/dL (70-104); POTASSIUM 4.1 mmol/L (3.5-5.1); SODIUM 139 mmol/L (136-145); TCO2 26 mmol/L (25-35)
--- NOTE | 2018-12-31 19:51 | PROGRESS NOTE ---
DATE: 12/31/2018 SUBJECTIVE: Overall, patient states she continues to experience slow, but progressive improvement. She was treated yesterday with IV Lasix. This morning, patient did note some improvement in her shortness of breath. Another dose of Lasix was provided this morning with adequate response. Because of her slow progression, CT scan of the chest was performed to rule out additional pathology. CT scan demonstrated advanced cirrhosis, ascites. Moderate, symmetrical bilateral pleural effusions. This evening, patient notes that she has been able to ambulate, although short distances in the bowles. She denies fevers, chills, nausea, vomiting, or chest discomfort. Her cough is persistent, but improving. OBJECTIVE: Vital Signs: T-max 98.2, heart rate 88 to 102, respirations 14-22, blood pressure 131- 159 over 51-75. General: Well nourished, well developed, no acute distress. Cardiovascular: Regular rate and rhythm. No significant murmurs, rubs, or gallops. Pulmonary: Decreased breath sounds at the left base, improved air movement. Abdomen: Soft, nontender, nondistended. Positive bowel sounds. Extremities: Moves all extremities well. No significant clubbing cyanosis, 1+ lower extremity edema bilaterally. Dermatologic: Evaluation reveals no evidence of rash. LABORATORY DATA: Sodium 139, potassium 4.1, chloride 103, bicarb 26, BUN 16, creatinine 0.9. Glucose 167, calcium 8.7. CT scan results are as described above. ASSESSMENT AND PLAN: 1. Possible pneumonia-this was noted initially per chest x-ray. There is not evidence of significant disease per CT scan today. For now, we will continue Rocephin and azithromycin. We will consider discontinuing this after 5 days of therapy. 2. Bilateral pleural effusions-this likely is a consequence of a multifactorial etiology. Cirrhosis and hypoproteinemia is likely playing a role. I am, however, concerned this could have a cardiac etiology as well. We will plan to check an echocardiogram in the a.m. We will continue diuresis as the patient's hemodynamics and kidney function will allow. 3. Nonalcoholic cirrhosis-patient is status post TIPS intervention on December 09. Per Doppler yesterday, TIPS appeared patent. We will remain aware. 4. Profound weakness-the patient is slowly achieving improvement. We will plan to initiate physical therapy in the a.m. 5. Diabetes-we will continue patient on Lantus therapy. 6. Reflux disease-we will continue pantoprazole therapy. 7. Hypothyroidism-we will continue patient on levothyroxine replacement. DISPOSITION: At this point, patient continues to require custodial care in a hospital setting. We will plan discharge home once appropriate. cc: Giovani Mariee MD
[2018-12-31] MEDS: ROBAXIN PO PRN (21:05)
[2018-12-31] MEDS: ULTRAM PO PRN (21:05)
[2018-12-31] MEDS: ROCEPHIN 1 GM in NS 50 ML IV SCH (21:05)
[2018-12-31] MEDS: ZITHROMAX 500 MG/NS 500 MG/250 ML IVPB IV SCH (21:05)
[2018-12-31] MEDS: DESYREL PO PRN (21:05)
[2018-12-31] MEDS: BASAGLAR SUBQ SCH (22:08)
[2019-01-01] MEDS: SYNTHROID PO SCH (06:08)
[2019-01-01] MEDS: PROTONIX PO SCH (06:08)
[2019-01-01 06:45] LABS: BASO# 0.03 X1000 (0.0-0.2); BASO% 0.8 % (0.0-0.8); EOS% 5.4 % (0.0-10.0); HEMATOCRIT 27.5 % (37.0-47.0); HEMOGLOBIN 8.7 g/dL (12.0-16.0); LYMPH# 1.05 X1000 (1.2-3.4); LYMPH% 28.5 % (20.5-51.1); MCH 27.8 PG (27-31); MCHC 31.6 g/dL (33-37); MCV 87.9 FL (81-99); MONO# 0.44 X1000 (0.11-0.59); MPV 8.4 FL (7.4-10.4); NEUT# 1.96 X1000 (1.4-6.5); NEUT% 53.3 % (42.2-75.2); PLT 99 X1000 (130-400); RBC 3.13 XMIL (4.2-5.4); WBC 3.68 X1000 (4.8-10.8)
[2019-01-01 07:13] LABS: AGAP 10; ALBUMIN 2.8 g/dL (3.5-5.0); ALKALINE PHOSPHATASE 121 U/L (32-104); BUN 18 mg/dL (8-22); CALCIUM 8.3 mg/dL (8.8-10.2); CHLORIDE 106 mmol/L (98-107); COSMO 291; CREATININE 0.9 mg/dL (0.5-0.9); ESTIMATED GFR > 60; GLUCOSE 110 mg/dL (70-104); GOT 51 U/L (10-30); GPT 33 U/L (10-36); POTASSIUM 3.3 mmol/L (3.5-5.1); SODIUM 145 mmol/L (136-145); TCO2 29 mmol/L (25-35); TOTAL BILIRUBIN 2.15 mg/dL (0.20-1.00); TOTAL PROTEIN 5.7 g/dL (6.3-8.3)
[2019-01-01] MEDS ORDERED: LASIX IV ONE (08:03)
[2019-01-01] MEDS ORDERED: KLOR-CON PO ONE (08:04)
[2019-01-01] MEDS: AVAPRO PO SCH (09:47)
[2019-01-01] MEDS: ASPIRIN EC PO SCH (09:47)
--- NOTE | 2019-01-01 13:36 | PROGRESS NOTE ---
DATE: 01/01/2019 SUBJECTIVE: Patient was up walking around in her room. At the present time of my evaluation, she has her oxygen off and had been to the bathroom. Her shortness of breath and dyspnea have significantly improved since I saw her yesterday, and patient states she is feeling better. She had a CT scan of the chest on 12/31/2018 that showed advanced cirrhosis, ascites, and moderate bilateral pleural effusions. She has had diuresis. TIPS shunt was noted to be in good position. OBJECTIVE: Vital Signs: Temperature 98.1 degrees, pulse 88, respirations 17, blood pressure 142/58. General: Patient is awake and alert with no acute distress. She is up walking in her room with less dyspnea and shortness of breath noted today. DIAGNOSTIC DATA: Hematology: WBC 3.68, hemoglobin 8.7, hematocrit 27.5, MCV 87.9, platelet 99,000. Chemistry: Sodium 145, potassium 3.3, chloride 106, CO2 of 29, BUN 18, creatinine 0.9, glucose 110, total bilirubin 2.15, AST 51, ALT 33, alkaline phosphatase 121. ASSESSMENT AND PLAN: 1. Pleural effusions versus pneumonia. Patient is on antibiotics and has received diuretics. 2. Nonalcoholic cirrhosis of the liver with recent transjugular intrahepatic portosystemic shunt (TIPS) procedure on 12/09/2018 at [facility]. Per imaging studies, the TIPS shunt was patent. 3. Shortness of breath, improving. 4. Weakness, improving. Patient has been up walking around in the bowles. Continue current management. We will continue to follow, and further plans will be made as needed. I have discussed this case with Dr. Garza. Dictated by JORDON Hanson for Kong Garza MD cc: JORDON Aparicio MD Scott A. Matthews, MD
[2019-01-01] MEDS ORDERED: TUMS EXTRA STRENGTH PO PRN (18:44)
--- NOTE | 2019-01-01 20:29 | PROGRESS NOTE ---
DATE: 01/01/2019 SUBJECTIVE: The patient continues to demonstrate slow improvement. The patient was originally seen this morning. At that time, she noted a decrease in her shortness of breath, although not to baseline. The patient was treated with IV Lasix this morning. An echocardiogram was performed. Echocardiogram results are pending. This evening, patient continues to show some improvement. She walked in the bowles independently. She does, however, continued to require oxygen therapy. She denies fevers, chills, nausea, vomiting, or chest discomfort. OBJECTIVE: Vital signs: T-max 98.2 degrees, heart rate 85 to 94, respirations 14 to 21, blood pressure 136 to 154 over 53 to 83. General: No acute distress. Cardiovascular: Regular rate and rhythm. No significant murmurs, rubs, or gallops. Pulmonary: Decreased breath sounds at the left base. Improving air movement. Abdomen: Soft, nontender, nondistended. Positive bowel sounds. Extremities: Moves all extremities well. No significant clubbing or cyanosis. There is 1+ lower extremity edema bilaterally. Dermatologic: Evaluation reveals no evidence of rash. DIAGNOSTIC STUDIES: White blood cell count 3.68, hemoglobin 8.7, hematocrit 27.5, platelet count is 99,000. Sodium 145, potassium 3.3, chloride 106, bicarbonate 29, BUN 18, creatinine 0.9, glucose 110, calcium 8.3, total bilirubin 2.15 total protein 5.7, albumin 2.8, alkaline phosphatase 121, AST 51, ALT 33. ASSESSMENT AND PLAN: 1. Possible pneumonia. Patient was diagnosed per initial chest x-ray. CT scan suggested this to be more consistent with fluid. For now, we will continue Rocephin and azithromycin therapy. We will encourage aspiration precautions. 2. Bilateral pleural effusions. This likely was a consequence of multiple factorial etiology. We will continue IV diuresis. As above, echocardiogram is pending. The patient is slowly improving with serial diuresis. 3. Nonalcoholic cirrhosis. Patient is status post TIPS intervention on December 09. We will remain aware and dose adjust medications. 4. Profound weakness. The patient is achieving very slow improvement with physical therapy and treatment of her bilateral pleural effusions. We will continue to encourage activity. 5. Diabetes. We will continue Lantus therapy. 6. Reflux disease. We will continue pantoprazole therapy. 7. Hypothyroidism. We will continue patient on levothyroxine replacement. DISPOSITION: At this point, patient continues to require longterm care in a hospital setting. We will plan discharge home once appropriate. cc: Giovani Mariee MD
[2019-01-01] MEDS: ZITHROMAX 500 MG/NS 500 MG/250 ML IVPB IV SCH (21:50)
[2019-01-01] MEDS: ROCEPHIN 1 GM in NS 50 ML IV SCH (21:50)
[2019-01-01] MEDS: BASAGLAR SUBQ SCH (21:50)
--- NOTE | 2019-01-02 00:01 | ECHO REPORT ---
ORDER DATE: 01/01/2019 MEASUREMENTS: Left ventricular end-diastolic diameter 3.7, septal thickness 1.4, aortic root 2.3, left atrium 4.7. SUMMARY: 1. Adequate quality study. 2. The aortic valve is trileaflet and opens adequately on 2-dimensional images. Peak gradient across the aortic valve is 20 mmHg with a mean gradient of 10 mmHg. Calculated aortic valve area by Doppler is greater than 2 cm2. There is mild aortic regurgitation. Mitral, tricuspid, and pulmonic valves are without evidence of structural abnormality with mild mitral regurgitation and trace tricuspid regurgitation. The estimated systolic PA pressure by Doppler is 55 to 60 mmHg, suggesting moderate pulmonary hypertension. The aortic root is normal size. 3. Normal left ventricular chamber size with mild concentric left hypertrophy is demonstrated. Estimated left ejection fraction appears to be at least 75%. No regional wall motion abnormalities are evident. Left atrium is mildly to moderately enlarged. The right atrium and right ventricle are normal size with grossly preserved right ventricular systolic function. 4. No pericardial effusion. 5. Left pleural effusion noted. 6. Appearance of inferior vena cava suggests elevated central venous pressure. CONCLUSIONS: 1. Mild aortic regurgitation. 2. Mild mitral regurgitation. 3. Trace tricuspid regurgitation with moderate pulmonary hypertension by Doppler. 4. Mild concentric left hypertrophy with estimated ejection fraction at least 75%. 5. Mild to moderate left atrial enlargement. 6. Left pleural effusion. 7. Appearance of inferior vena cava suggests elevated central venous pressure. cc: MD Giovani Taylor MD
[2019-01-02] MEDS: PROTONIX PO SCH (06:09)
[2019-01-02] MEDS: SYNTHROID PO SCH (06:10)
[2019-01-02 07:02] LABS: BASO# 0.03 X1000 (0.0-0.2); BASO% 0.8 % (0.0-0.8); EOS# 0.25 X1000 (0.0-0.7); EOS% 6.5 % (0.0-10.0); HEMATOCRIT 29.8 % (37.0-47.0); HEMOGLOBIN 9.4 g/dL (12.0-16.0); LYMPH# 1.05 X1000 (1.2-3.4); LYMPH% 27.1 % (20.5-51.1); MCH 27.7 PG (27-31); MCHC 31.5 g/dL (33-37); MCV 87.9 FL (81-99); MONO% 10.3 % (1.7-9.3); MPV 8.4 FL (7.4-10.4); NEUT# 2.14 X1000 (1.4-6.5); NEUT% 55.3 % (42.2-75.2); PLT 98 X1000 (130-400); RBC 3.39 XMIL (4.2-5.4); RDW 20.9 % (11.5-14.5); WBC 3.87 X1000 (4.8-10.8)
[2019-01-02 07:20] LABS: AGAP 8; ALBUMIN 3.1 g/dL (3.5-5.0); ALKALINE PHOSPHATASE 132 U/L (32-104); BUN 17 mg/dL (8-22); CALCIUM 8.4 mg/dL (8.8-10.2); CHLORIDE 105 mmol/L (98-107); COSMO 291; CREATININE 0.8 mg/dL (0.5-0.9); ESTIMATED GFR > 60; GLUCOSE 119 mg/dL (70-104); GOT 56 U/L (10-30); GPT 36 U/L (10-36); IRON SATURATION 32 %; POTASSIUM 3.7 mmol/L (3.5-5.1); SODIUM 145 mmol/L (136-145); TCO2 32 mmol/L (25-35); TIBC 169 ug/dL; TOTAL BILIRUBIN 1.83 mg/dL (0.20-1.00); TOTAL IRON 54 ug/dL (49-151); TOTAL PROTEIN 6.2 g/dL (6.3-8.3); UNBOUND IRON 115 ug/dL (112-346)
[2019-01-02 07:36] LABS: FERRITIN 203 ng/mL (13-150)
[2019-01-02] MEDS: AVAPRO PO SCH (09:14)
[2019-01-02] MEDS: ASPIRIN EC PO SCH (09:14)
[2019-01-02] MEDS ORDERED: LASIX IV ONE (09:40)
[2019-01-02] MEDS ORDERED: KLOR-CON PO ONE (09:41)
--- NOTE | 2019-01-02 13:31 | PROGRESS NOTE ---
DATE: 01/02/2019 SUBJECTIVE: The patient was walking in the halls at the time of my rounds. She has been able to walk further in the bowles today. She still has O2 in place. She states her shortness of breath is improving. OBJECTIVE: Vital Signs: Temperature 98.4 degrees, pulse 87, respirations 22, blood pressure 141/59. Generally patient is awake, alert, and oriented. She is walking in the halls. LABORATORY: Hematology: WBC 3.87, hemoglobin 9.4, hematocrit 29.8, MCV 87.9, platelet 98,000. Chemistry: Sodium 145, potassium 3.7, chloride 105, BUN 17, creatinine 0.8, glucose 119, total bilirubin 1.83, AST 56, ALT 36, alkaline phosphatase 132. ASSESSMENT AND PLAN: 1. Pleural effusions versus pneumonia. Patient is on antibiotics and is receiving diuretics. 2. Nonalcoholic cirrhosis of the liver with recent TIPS procedure on 12/09/2018 at [facility]. Imaging studies done here in the hospital showed patent TIPS shunt. 3. Shortness of breath, improving. 4. Weakness,improving. Patient has been walking around in the hallway. 5. We will continue to follow. Recommend patient continue to follow a low-sodium diet. Follow back with us as an outpatient. Patient was also seen by Dr. Garza. Dictated by JORDON Hanson for Kong Garza MD cc: JORDON Aparicio MD Scott A. Matthews, MD
--- NOTE | 2019-01-02 19:27 | PROGRESS NOTE ---
DATE: 01/02/2019 SUBJECTIVE: The patient was originally seen this morning. At that time, patient noted some improvement over the course of the last 24 hours. She continues to work with incentive spirometry, although is registering only approximately 500 mL. Her shortness of breath has improved, but not back to baseline. This morning she was again provided Lasix IV. She tolerated this well. Adequate urine output was achieved. This evening patient has had further improvement in her shortness of breath. She has walked with physical therapy in the bowles. She does, however, continue to require oxygen supplementation. She denies fevers, chills, nausea, vomiting, or chest discomfort. OBJECTIVE: T-max 98.5, heart rate 87 to 98, respirations 14 to 22, blood pressure 126 to 152 over 45 to 64.General: No acute distress. Cardiovascular: Regular rate and rhythm. No significant murmurs, rubs, or gallops. Pulmonary: Decreased breath sounds at the left base. Reasonable air movement. Abdomen: Soft, nontender, nondistended. Positive bowel sounds. Extremities: Moves all extremities well. No significant clubbing or cyanosis. Trace lower extremity edema bilaterally. Dermatologic: Evaluation reveals no evidence of rash. LABORATORY DATA: White blood cell count 3.87, hemoglobin 9.4, hematocrit 29.8, platelet count is 98,000. Sodium 145, potassium 3.7, chloride 105, bicarb 32, BUN 17, creatinine 0.8, glucose 159, calcium 8.4, total bilirubin 1.83, total protein 6.2, albumin 3.1, alkaline phosphatase 132, AST 56, ALT 36. Vitamin B12 1804, folate 9.9, ferritin 203, iron 54, TIBC 169. ASSESSMENT AND PLAN: 1. Possible pneumonia-this was diagnosed per chest x-ray. For now, we will continue antibiotic intervention. Clinically, patient is improving. 2. Bilateral pleural effusions-this likely is a consequence of her underlying liver failure. After her transjugular intrahepatic portosystemic shunt procedure, all diuretics were discontinued. She slowly experienced increasing in volume. Echocardiogram yesterday suggested adequate cardiac function. For now, we will continue diuresis as she is achieving improvement. She will likely require this as an outpatient. 3. Nonalcoholic cirrhosis-patient is status post transjugular intrahepatic portosystemic shunt on December 09. Clinically, she has achieved improvement with exception of volume. 4. Profound weakness-patient is very slowly improving with physical therapy. We will continue to encourage activity. We will treat bilateral pleural effusions as above. 5. Diabetes-we will continue Lantus therapy. Blood sugars are reasonably controlled. 6. Reflux disease-we will continue patient on pantoprazole therapy. 7. Hypothyroidism-we will continue on levothyroxine replacement. 8. Disposition-at this point, patient continues to require correction care in a hospital setting. We will plan discharge home once appropriate. cc: Giovani Mariee MD
[2019-01-02] MEDS: ROCEPHIN 1 GM in NS 50 ML IV SCH (22:45)
[2019-01-02] MEDS: BASAGLAR SUBQ SCH (22:49)
[2019-01-02] MEDS: ULTRAM PO PRN (22:56)
[2019-01-02] MEDS: ROBAXIN PO PRN (22:56)
[2019-01-02] MEDS: DESYREL PO PRN (22:57)
[2019-01-02] MEDS: ZITHROMAX 500 MG/NS 500 MG/250 ML IVPB IV SCH (23:59)
[2019-01-03] MEDS: SYNTHROID PO SCH (06:38)
[2019-01-03] MEDS: PROTONIX PO SCH (06:38)
[2019-01-03] MEDS ORDERED: LASIX IV ONE (09:32)
[2019-01-03] MEDS: ASPIRIN EC PO SCH (09:44)
[2019-01-03] MEDS: AVAPRO PO SCH (09:44)
[2019-01-03 10:59] LABS: AGAP 8; BUN 20 mg/dL (8-22); CALCIUM 8.9 mg/dL (8.8-10.2); CHLORIDE 102 mmol/L (98-107); COSMO 289; CREATININE 0.8 mg/dL (0.5-0.9); ESTIMATED GFR > 60; GLUCOSE 196 mg/dL (70-104); POTASSIUM 4.1 mmol/L (3.5-5.1); SODIUM 141 mmol/L (136-145); TCO2 31 mmol/L (25-35)
[2019-01-03 11:19] VITALS: BP 115/96
[2019-01-03] MEDS ORDERED: KLOR-CON PO ONE (12:12)
--- NOTE | 2019-01-03 18:42 | DISCHARGE SUMMARY ---
ADMISSION DATE: 12/29/2018 DISCHARGE DATE: 01/03/2019 ADMISSION DIAGNOSES: 1. Profound weakness. 2. Shortness of breath. DISCHARGE DIAGNOSES: 1. Possible pneumonia with resolution of symptoms utilizing antibiotic intervention. 2. Bilateral pleural effusions, improving. 3. 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 4. Profound weakness, improving. 5. Diabetes, present on arrival. 6. Reflux disease, present on arrival. 7. Hypothyroidism, present on arrival. CONSULTATIONS: None. PROCEDURES: 1. Chest x-ray was performed on 12/29/2018 which revealed lingular and left lower lobe pneumonia with left pleural effusion and small right pleural effusion. 2. CT scan of the chest was performed on 12/31/2018 which revealed advanced cirrhosis. Ascites. Moderate, symmetric bilateral pleural effusions. 3. Echocardiogram was performed on 01/01/2019 which revealed mild aortic regurgitation. Mild mitral regurgitation. Trace tricuspid regurgitation with moderate pulmonary hypertension by Doppler. Mild concentric left ventricular hypertrophy with an estimated ejection fraction of at least 75%. Mild to moderate left atrial enlargement. Left pleural effusion. Appearance of vena cava suggests elevated central venous pressure. HISTORY AND PHYSICAL EXAMINATION: See admit note. PHYSICAL EXAMINATION: Prior to discharge. Temperature 99 degrees, heart rate 95, respirations 20, blood pressure is 115/96. General: Chronically ill appearing, no acute distress. Cardiovascular: Regular rate and rhythm. No significant murmurs, rubs, or gallops. Pulmonary: Crackles at the left base, improving. Abdomen: Soft, nontender, slightly distended. Positive bowel sounds. Extremities: Moves all extremities well. No significant clubbing or cyanosis. Trace lower extremity edema bilaterally. Dermatologic: Evaluation reveals no evidence of rash. LABORATORY DATA: Prior to discharge sodium 141, potassium 4.1, chloride 102, bicarb 31, BUN 20, creatinine 0.8, glucose 196, calcium 8.9. HOSPITAL COURSE: Patient was admitted as per history and physical examination. Hospital course per condition. 1. Possible pneumonia-upon admission, patient was noted to have an abnormal chest x-ray. Patient was treated with Rocephin and azithromycin therapy. Patient tolerated this well. Interestingly, CT scan, as described above, suggested this abnormality to be more associated with fluid rather than pneumonia. The patient was treated with antibiotic intervention while hospitalized. She tolerated this well. We will discharge patient home without antibiotic intervention. We will follow her clinical course closely. 2. Bilateral pleural effusions-upon admission, patient was noted to have significant shortness of breath and hypoxia. Chest x-ray and CT scans were as described above. The patient was started on diuretic intervention while hospitalized. Echocardiogram was performed as described above. At this point, I suspect her volume overload status was likely a consequence of her underlying cirrhosis and a consequence of discontinuing diuretic intervention in the setting of recent TIPS procedure. With IV diuresis, symptoms improved. Patient will be discharged home with Lasix 80 mg alternating with 40 mg daily. We will follow her clinical course very closely. We will determine if resuming spironolactone is appropriate. 3. Nonalcoholic cirrhosis-as above, patient is status post TIPS intervention on December 09. Clinically, she is improving with exception of volume. We will adjust diuresis as above. While hospitalized, her ammonia level was within normal limits. 4. Profound weakness-this was likely a consequence of her acute illness. Patient was treated with physical therapy while hospitalized with significant improvement. We will follow patient closely as an outpatient. 5. Diabetes-while hospitalized, patient was treated with Lantus therapy. Blood sugars remained reasonably controlled. 6. Reflux disease-patient was continued on pantoprazole therapy. We will continue this as an outpatient. 7. Hypothyroidism-the patient was treated with levothyroxine while hospitalized. We will continue this as an outpatient. DISCHARGE CONDITION: Stable. DISPOSITION: Discharge to home. MEDICATIONS: 1. Aspirin 81 mg daily. 2. Tums extra-strength twice daily as needed. 3. Lantus 10 units at bedtime. 4. Irbesartan 150 mg daily. 5. Levothyroxine 125 mcg daily. 6. Robaxin 750 mg 3 times daily as needed. 7. Pantoprazole 40 mg daily. 8. Tramadol 50 mg every 6 hours as needed. 9. Trazodone 50 mg at bedtime as needed. 10. Vitamin B12 1000 mcg daily. 11. Lasix 40 mg alternating with 80 mg daily. FOLLOWUP: The patient is to follow up with me in approximately 1 week. At that time, we will recheck a CBC and CMP. cc: Giovani Mariee MD
== END 2019-01-03 13:29 | disposition home or self-care (01) | DRG 432 ==
LOC: DIRADM 14:07 → 4N 16:40
PROVIDERS: ADMIT Internal Medicine; ATTEND Internal Medicine
CPT/HCPCS: 71010; 71045; 71250; 76705; 80048; 80053; 81001; 82140; 82550; 82553; 82607; 82728; 82746; 82948; 83540; 83550; 83880; 84439; 84443; 84484; 85025; 85610; 85730; 93005; 93010; 93306; 94761; 94799; 97162; 97530; A9270; J0456; J0696; J1940; J7040; XXXXX

== ENCOUNTER 2019-02-17 21:03 | Inpatient (IN) ==
[2019-02-17 21:47] LABS: BASO# 0.04 X1000 (0.0-0.2); BASO% 0.8 % (0.0-0.8); EOS# 0.33 X1000 (0.0-0.7); EOS% 6.7 % (0.0-10.0); HEMATOCRIT 34.7 % (37.0-47.0); HEMOGLOBIN 11.7 g/dL (12.0-16.0); LYMPH# 1.37 X1000 (1.2-3.4); MCHC 33.7 g/dL (33-37); MCV 85.9 FL (81-99); MONO# 0.48 X1000 (0.11-0.59); MONO% 9.8 % (1.7-9.3); MPV 9.2 FL (7.4-10.4); NEUT# 2.67 X1000 (1.4-6.5); NEUT% 54.7 % (42.2-75.2); PLT 118 X1000 (130-400); RBC 4.04 XMIL (4.2-5.4); RDW 15.1 % (11.5-14.5); WBC 4.89 X1000 (4.8-10.8)
--- NOTE | 2019-02-17 21:52 | Diag Imaging Result Doc PS360 ---
EXAM: CT HEAD W/O CONTRAST HISTORY: ams TECHNIQUE: CT head without contrast COMPARISON: 01/22/2017 FINDINGS: No parenchymal hemorrhage. No epidural or subdural hematoma. No subarachnoid hemorrhage. No mass identified on this noncontrasted exam. No hydrocephalus. No sinus opacification. IMPRESSION: No hemorrhage. Negative brain CT without contrast. This exam was performed using automated exposure control, adjustment of mA or kV according to patient size, and/or use of iterative reconstruction technique. Electronically signed by Ham Soto 02/17/2019 9:49 PM
[2019-02-17 22:05] LABS: URINE SOURCE CATH
[2019-02-17 22:12] LABS: AGAP 13; ALB/GLOB RATIO 1.1; ALBUMIN 3.5 g/dL (3.5-5.0); ALKALINE PHOSPHATASE 92 U/L (32-104); BUN 18 mg/dL (8-22); CALCIUM 9.7 mg/dL (8.8-10.2); CHLORIDE 105 mmol/L (98-107); COSMO 296; CREATININE 0.8 mg/dL (0.5-0.9); ESTIMATED GFR > 60; GLUCOSE 132 mg/dL (70-104); GOT 45 U/L (10-30); GPT 24 U/L (10-36); POTASSIUM 3.9 mmol/L (3.5-5.1); SODIUM 147 mmol/L (136-145); TCO2 29 mmol/L (25-35); TOTAL PROTEIN 6.6 g/dL (6.3-8.3)
[2019-02-17] MEDS ORDERED: ZOFRAN IV ONE (22:16)
[2019-02-17] MEDS ORDERED: ZOFRAN ONE (22:18)
[2019-02-17 22:39] LABS: BILIRUBIN URINE NEGATIVE (NEGATIVE); BLOOD URINE SMALL (NEGATIVE); COLOR YELLOW; GLUCOSE URINE NEGATIVE (NEGATIVE); KETONE URINE TRACE mg/dL (NEGATIVE); LEUKOCYTES URINE NEGATIVE (NEGATIVE); NITRITE URINE NEGATIVE (NEGATIVE); PROTEIN URINE TRACE mg/dL (NEGATIVE); SP GRAVITY URINE 1.017; TURBIDITY URINE CLEAR (CLEAR); UR EPITHELIAL CELLS <10 /HPF (<10); URINE BACTERIA NEGATIVE /HPF; URINE RBC 20-40 /HPF (<10); URINE WBC <10 /HPF (<10); UROBILINOGEN URINE 2 mg/dL (NORMAL)
[2019-02-17 22:41] LABS: ALLEN TEST YES; BE 8.1 mmoll (-3.0-3.0); BLOOD TYPE ARTERIAL; HCO3-(ACT) 31.1 mmoll (20.0-26.0); METHB 0.9 % (0.0-1.5); O2(CT) 13.8 mL/dL (15.0-23.0); O2HB 91.8 % (95.0-99.0); PCO2(98.6) 41 mmHg (35-45); PO2(98.6) 61 mmHg (60-100); SAMPLE BLOOD; SAO2 96.6 % (95.0-100.0); THB 10.7 g/dL (11.5-17.4)
[2019-02-17 22:42] LABS: MODALITY ROOM AIR
[2019-02-18] MEDS ORDERED: ROCEPHIN 1 GM in NS 50 ML IV ONE (01:32)
--- NOTE | 2019-02-18 01:37 | PROVIDER DOCUMENTATION ---
This chart was entered by Marilia Perera Scribe, acting as scribe for Kelvin Mg MD. HPI-Neurological Disorder - General Chief Complaint: Altered Mental Status Stated Complaint: ABD PAIN/ALTERED MENTAL Time Seen by Provider: 02/17/19 21:25 Source: family Allergies/Adverse Reactions: Patient Allergies Allergy/AdvReac Type Severity Reaction Status Date / Time dopamine [Dopamine] Allergy Severe ANAPHYLAXIS Verified 02/17/19 21:15 Home Medications: Home Medication List Medication Instructions Recorded Confirmed Last Taken Type Levothyroxine [Synthroid] 125 microgm PO DAILY 08/10/13 12/29/18 12/29/18 08:00 History Methocarbamol [Robaxin-750] 750 mg PO TID PRN PRN #30 tablet 11/15/14 12/29/18 12/28/18 20:00 Rx Tramadol [Ultram] 50 mg PO Q6H PRN PRN #10 tablet 11/15/14 12/29/18 12/28/18 20:00 Rx Pantoprazole [Protonix] 1 tab PO DAILY 06/26/16 12/29/18 12/29/18 08:00 History Trazodone [Desyrel] 50 mg PO HS PRN PRN 01/22/17 12/29/18 12/28/18 20:00 History Aspirin [Aspirin EC] 81 mg PO DAILY 06/26/18 12/29/18 12/29/18 08:00 History Cyanocobalamin (Vitamin B-12) 1,000 mcg PO DAILY 12/29/18 12/29/18 12/29/18 08:00 History [Vitamin B12] Calcium Carbonate [Tums Extra 750 mg PO BID PRN PRN tablet 01/03/19 Unknown Rx Strength] Furosemide [Lasix] 40 mg PO DIRECTED #1 tablet 01/03/19 Unknown Rx Insulin Glargine [Basaglar] 10 unit SUBQ QHS insuln.pen 01/03/19 Unknown Rx Irbesartan [Avapro] 150 mg PO DAILY tablet 01/03/19 Unknown Rx - History of Present Illness-Neuro Nature of Presenting Problem: 73 yom presents to ED c/o dizziness, weakness and nausea that started about 6pm tonight. Pt has HX of Cirrhosis of liver, HTN and DM. Pt states she saw doctor 1 week ago and was given a clear report. Pt had a TIPS in December 2018. Pt denies pain, vomiting, diarrhea, constipation. Severity: reports: mild Onset/Duration: reports: 1-3 hours ago Timing: reports: still present Review of Systems - Adult - REVIEW OF SYSTEMS - ADULT Constitutional: reports: see HPI, isabel. denies: chills, fever Eyes: reports: no symptoms reported Ears, Nose, Mouth & Throat: reports: no symptoms reported Cardiovascular: reports: no symptoms reported Respiratory: reports: no symptoms reported Gastrointestinal: reports: see HPI, nausea Genitourinary: reports: no symptoms reported Musculoskeletal: reports: no symptoms reported Integumentary: reports: no symptoms reported Neurological: reports: see HPI, dizziness/vertigo, other (weakness) Psychiatric: reports: no symptoms reported Endocrine: reports: no symptoms reported Hematologic/Lymphatic: reports: no symptoms reported Allergic/Immunologic: reports: no symptoms reported All Other Systems: Reviewed and Negative Past History - Adult - PAST MEDICAL HISTORY-ADULT Review of Records: reports: Old Records Reviewed, Nursing Assessment Review, Medications Reviewed, Social history reviewed & non-contributory. Major Childhood Illnesses: reports: denies history Cardiovascular: reports: HTN Respiratory: reports: denies history Gastrointestinal: reports: denies history Obstetrical/Gynecological: reports: denies history Genitourinary: reports: kidney stones Musculoskeletal: reports: denies history Neurological: reports: denies history Endocrine/Immune: reports: Diabetes, thyroid disorder Other Conditions: reports: denies history - PRIOR SURGERIES/PROCEDURES Surgical/Procedure History: reports: other (cystoscopy) - PRIOR HOSPITALIZATIONS Prior Hospitalizations: reports: for other non-related - IMMUNIZATION STATUS Childhood Immunizations: See Nurse Assessment Flu Vaccine: See Nurse Assessment - FAMILY HISTORY Family History: reviewed, not pertinent - SOCIAL HISTORY Smoking: denies Physical Exam- Neurological - Physical Exam-Neuro Initial Vital Signs Reviewed: Yes General Appearance: appears well, alert, slow to respond Eye Exam: bilateral eye: normal inspection, PERRL HENMT: normocephalic/atraumatic, moist mucous membranes. negative: frontal tenderness, maxillary tenderness Head Injury: no evidence of injury. negative: active bleeding, lacerations Neck: non-tender, full range of motion. negative: Brudzinski's sign, carotid bruit Respiratory: chest non-tender, lungs clear, normal breath sounds, no pleuratic chest pain, no respiratory distress, no accessory muscle use. negative: crackles, rales, rhonchi Cardiovascular: normal peripheral pulses, regular rate, rhythm, no edema. negative: bradycardia, tachycardia Abdominal Exam: normal bowel sounds, non tender, soft. negative: rigid, rebound, tenderness Lymphatic: no adenopathy. negative: striations Extremity: normal range of motion, non-tender. negative: swelling punchboard stuffer Exam: normal hearing, normal speech, PERRL Motor/Sensory: no motor deficit Integumentary: normal color, normal turgor. negative: jaundice, swelling Psych/Mental Status: normal mood/affect Progress - PLAN OF CARE/RESULTS Progress/Plan/Lab Results: Vital Signs - 8 hr 02/17/19 21:10 02/17/19 21:59 02/17/19 22:00 Temperature 98.2 F Pulse Rate 93 H 84 Respiratory Rate 16 18 Blood Pressure 183/74 160/82 O2 Sat by Pulse Oximetry 100 96 97 02/17/19 22:03 02/17/19 22:10 02/17/19 22:20 Temperature Pulse Rate 89 Respiratory Rate 20 Blood Pressure 174/78 O2 Sat by Pulse Oximetry 96 97 97 02/17/19 22:30 02/17/19 22:38 02/17/19 22:40 Temperature Pulse Rate Respiratory Rate Blood Pressure 160/77 O2 Sat by Pulse Oximetry 96 95 96 02/17/19 22:50 02/17/19 23:00 02/17/19 23:02 Temperature Pulse Rate Respiratory Rate Blood Pressure 167/74 O2 Sat by Pulse Oximetry 96 93 L 96 02/17/19 23:10 02/17/19 23:20 02/17/19 23:30 Temperature Pulse Rate Respiratory Rate Blood Pressure O2 Sat by Pulse Oximetry 97 95 98 02/17/19 23:31 02/17/19 23:40 02/17/19 23:50 Temperature Pulse Rate Respiratory Rate Blood Pressure 172/77 O2 Sat by Pulse Oximetry 97 97 96 02/18/19 00:00 02/18/19 00:02 02/18/19 00:10 Temperature Pulse Rate Respiratory Rate Blood Pressure 146/105 O2 Sat by Pulse Oximetry 95 95 96 02/18/19 00:20 02/18/19 00:30 02/18/19 00:31 Temperature Pulse Rate 81 Respiratory Rate 18 Blood Pressure 155/83 O2 Sat by Pulse Oximetry 97 94 L 96 02/18/19 00:40 Temperature Pulse Rate Respiratory Rate Blood Pressure O2 Sat by Pulse Oximetry 96 Laboratory Results - last 24 hr 02/17/19 02/17/19 02/17/19 21:18 21:30 21:30 WBC 4.89 RBC 4.04 L Hgb 11.7 L Hct 34.7 L MCV 85.9 MCH 29.0 MCHC 33.7 RDW Std Deviation 15.1 H Plt Count 118 L MPV 9.2 Immature Gran % (Auto) 0.0 Neut % (Auto) 54.7 Lymph % (Auto) 28.0 [place] % (Auto) 9.8 H Eos % (Auto) 6.7 Baso % (Auto) 0.8 Immature Gran # (Auto) 0.00 Neut # (Auto) 2.67 Lymph # (Auto) 1.37 [place] # (Auto) 0.48 Eos # (Auto) 0.33 Baso # (Auto) 0.04 Specimen Type Sample Site pH pCO2 pO2 HCO3 Base Excess Oxyhemoglobin ABG O2 Sat (Calculated) ABG O2 Saturation ABG Carboxyhemoglobin ABG Methemoglobin Michael Test A-a O2 Difference Total Hemoglobin Lactate Blood Gas Modality FiO2 % Sodium 147 H Potassium 3.9 Chloride 105 Carbon Dioxide 29 Anion Gap 13 BUN 18 Creatinine 0.8 Estimated GFR/1.73 m2 > 60 BUN/Creatinine Ratio 23 Glucose 132 H POC Glucose 128 H Calculated Osmolality 296 Calcium 9.7 Total Bilirubin 2.80 H AST 45 H ALT 24 Alkaline Phosphatase 92 Ammonia Troponin T [id number] Pept Total Protein 6.6 Albumin 3.5 Globulin 3.1 Albumin/Globulin Ratio 1.1 Urine Source Urine Color Urine Turbidity Urine pH Ur Specific [place] Urine Protein Ur Glucose (Stick) Ur Ketones (Stick) Urine Blood Urine Nitrite Urine Bilirubin Urobilinogen Dipstick Urine Leukocytes Urine WBC (Auto) Urine RBC (Auto) U Epithel Cells (Auto) Urine Bacteria (Auto) 02/17/19 02/17/19 02/17/19 21:30 21:50 21:55 WBC RBC Hgb Hct MCV MCH MCHC RDW Std Deviation Plt Count MPV Immature Gran % (Auto) Neut % (Auto) Lymph % (Auto) [place] % (Auto) Eos % (Auto) Baso % (Auto) Immature Gran # (Auto) Neut # (Auto) Lymph # (Auto) [place] # (Auto) Eos # (Auto) Baso # (Auto) Specimen Type Sample Site pH pCO2 pO2 HCO3 Base Excess Oxyhemoglobin ABG O2 Sat (Calculated) ABG O2 Saturation ABG Carboxyhemoglobin ABG Methemoglobin Michael Test A-a O2 Difference Total Hemoglobin Lactate Blood Gas Modality FiO2 % Sodium Potassium Chloride Carbon Dioxide Anion Gap BUN Creatinine Estimated GFR/1.73 m2 BUN/Creatinine Ratio Glucose POC Glucose Calculated Osmolality Calcium Total Bilirubin AST ALT Alkaline Phosphatase Ammonia 48 Troponin T < 0.010 [id number]-Rdwzlpfnqsa Pept 500 H Total Protein Albumin Globulin Albumin/Globulin Ratio Urine Source Urine Color Urine Turbidity Urine pH Ur Specific [place] Urine Protein Ur Glucose (Stick) Ur Ketones (Stick) Urine Blood Urine Nitrite Urine Bilirubin Urobilinogen Dipstick Urine Leukocytes Urine WBC (Auto) Urine RBC (Auto) U Epithel Cells (Auto) Urine Bacteria (Auto) 02/17/19 02/17/19 02/18/19 21:55 22:32 00:11 WBC RBC Hgb Hct MCV MCH MCHC RDW Std Deviation Plt Count MPV Immature Gran % (Auto) Neut % (Auto) Lymph % (Auto) [place] % (Auto) Eos % (Auto) Baso % (Auto) Immature Gran # (Auto) Neut # (Auto) Lymph # (Auto) [place] # (Auto) Eos # (Auto) Baso # (Auto) Specimen Type ARTERIAL Sample Site L BRACHIAL pH 7.50 H pCO2 41 pO2 61 HCO3 31.1 H Base Excess 8.1 H Oxyhemoglobin 91.8 L ABG O2 Sat (Calculated) 13.8 L ABG O2 Saturation 96.6 ABG Carboxyhemoglobin 4.10 H ABG Methemoglobin 0.9 Michael Test YES A-a O2 Difference 37.0 Total Hemoglobin 10.7 L Lactate 2.00 Blood Gas Modality ROOM AIR FiO2 % 21.0 Sodium Potassium Chloride Carbon Dioxide Anion Gap BUN Creatinine Estimated GFR/1.73 m2 BUN/Creatinine Ratio Glucose POC Glucose Calculated Osmolality Calcium Total Bilirubin AST ALT Alkaline Phosphatase Ammonia Troponin T < 0.010 Nkr-D-Arcylzuksad Pept Total Protein Albumin Globulin Albumin/Globulin Ratio Urine Source CATH Urine Color YELLOW Urine Turbidity CLEAR Urine pH 7.0 Ur Specific [place] 1.017 Urine Protein TRACE A Ur Glucose (Stick) NEGATIVE Ur Ketones (Stick) TRACE A Urine Blood SMALL A Urine Nitrite NEGATIVE Urine Bilirubin NEGATIVE Urobilinogen Dipstick 2 A Urine Leukocytes NEGATIVE Urine WBC (Auto) <10 Urine RBC (Auto) 20-40 A U Epithel Cells (Auto) <10 Urine Bacteria (Auto) NEGATIVE Orders Category Date Time Status [place] Cath Insertion ORDERED Care 02/17/19 22:07 Active CHEST-1 VIEW [RAD] Stat Exams 02/17/19 23:[address] HEAD W/O CONTRAST [CT] Stat Exams 02/17/19 21:27 Completed ABG [RESP] Routine Lab 02/17/19 22:32 Completed AMMONIA [CHEM] Stat Lab 02/17/19 21:55 Completed BLOOD CULTURE [BLDCUL] Stat Lab 02/18/19 01:32 Uncollected CBC WITH ELECTRONIC DIFF [HEME] Stat Lab 02/17/19 21:30 Completed COMPREHENSIVE METABOLIC PANEL [CHEM] Stat Lab 02/17/19 21:30 Completed PRO B-NATRIURETIC PEPTIDE Stat Lab 02/17/19 21:50 Completed TROPONIN T Stat Lab 02/17/19 21:30 Completed TROPONIN T Stat Lab 02/18/19 00:11 Completed URINALYSIS [URINALYSIS] Stat Lab 02/17/19 21:55 Completed CefTRIAXONE [Rocephin] 1 gm Med 02/18/19 01:32 Stop Req 0.9% Sodium Chloride Inj [Ns] 50 ml IV NOW Ondansetron [Zofran] Med 02/17/19 22:18 Discontinued 4 mg .ROUTE .STK-MED ONE Ondansetron [Zofran] Med 02/17/19 22:16 Discontinued 4 mg IV NOW ONE Oxygen Device Stat Oth 02/18/19 01:22 Active EKG [EKG] Stat Ther 02/17/19 21:29 Ordered At recheck pt notes that she is feeling much better mentally. She only complains of mild nausea now that is improving in the eR. Result Diagrams: 02/17/19 21:30 02/17/19 21:30 - EKG 1 Time of EKG reading by physician:: 21:40 EKG Read and Signed by:: Kelvin Mg EKG Interpretation (*Must complete 3 of following elements*): Abnormal Rate: 87 Rhythm: sinus with occasional pvc [place]: normal ST Wave: normal - CT/MRI 1 CT Study: Head Impression: Normal (IMPRESSION: No hemorrhage. Negative brain CT without contrast. This exam was performed using automated exposure control, adjustment of mA or kV according to patient size, and/or use of iterative reconstruction technique. Electronically signed by Ham Soto 02/17/2019 9:49 PM) - CONSULTS/PCP/HOSPITALIST Notification #1 *Consult/PCP/Hospitalist*: Dr Valencia Time Discussed: 01:35 Consult Disposition: Will see in ED, Admit Departure - Departure Date of Disposition Decision: 02/17/19 Time of Disposition Decision: 21:44 DIAGNOSIS: Altered mental status, Abnormal ABGs, Total bilirubin, elevated Disposition: ADMITTED INPATIENT 09 Certified Medical Emergency: Emergent Condition: Stable Referrals and Follow-Ups: Giovani Mariee MD [Primary Care Provider] - - Critical Care Note This patient required my direct & personal management of CC.: No Attestation - Physician/ CHRISTOPHE Attestation Patient care was provided by Advanced Practice Provider:: No The physician spent face to face time with patient:: Yes Advanced Practice Provider documentation review:: Supervising physician onsite and consulted in the evaluation and care of this patient. The physician did have a face to face encounter with the patient. - NIH Stroke Scale NIH Type: Discharge Evaluation Level of Consciousness: 2-Stuporous, requires repeat stimulation to attend LOC Questions (ask month and age): 0-Answers Both Correctly LOC Commands (ask to open & close eyes;make a fist, let go): 0-Obeys Both Correctly Best Gaze (horizontal eye movement): 0-Normal Visual (use finger movement, counting or visual threat): 0-No Visual Loss Facial Palsy (show teeth or raise eyebrows & close eyes tght: 0-Symmetrical Movement Motor Function-left arm: 0-Normal Motor Function-right arm: 0-Normal Motor Function-left le-Normal Motor Function-right le-Normal Limb Ataxia(wwzwwy-ktvr-nfvqao, or heel to stuart): 0-No Ataxia Sensory(pin prick to face,arms,trunk,legs-compare side/side): 0-No Ataxia Best Language(name item/read sentence.Ex-Down to Earth): 0-No Aphasia Dysarthria(Pt read words or say words Ex.Mama,Tip-Top,Thanks: 0-Normal Articulation Extinction and Inattention: 0-Normal Modified Candler Score Criteria: 0-no symptoms This chart was documented by the indicated scribe, (Marilia Perera, [place]) and accurately reflects the services I performed and decisions made by me, Kelvin Mg MD, as attested by the provider's signature.
[2019-02-18] MEDS ORDERED: ZOFRAN IV ONE (02:23)
[2019-02-18] MEDS ORDERED: PROTONIX PO ONE (03:14)
--- NOTE | 2019-02-18 03:26 | HISTORY AND PHYSICAL ---
PRIMARY CARE PHYSICIAN: Giovani Mariee MD REASON FOR ADMISSION: Confusion for the last 6 hours. HISTORY OF PRESENT ILLNESS: Ms. Rosanna Baum is a 73-year-old woman with past medical history of advanced cirrhosis secondary to nonalcoholic steatohepatitis requiring TIPS done on 12/09/2018 at [facility]. She also has a history of type 2 diabetes uncontrolled with A1c of 8.8, iron deficiency anemia, hypothyroidism, depression, osteopenia, hypertension, and allergic rhinitis; brought in today. The patient for the last few days has been getting progressively weak and all day she started belching, but no vomiting, although she had a few dry heaves. No abdominal complaints or diarrhea. No fever or chills. They also noticed that the patient was having a hard time remembering basic items, i.e. her last name or her address, and she got progressively even more confused over the course of the next couple of hours. Her son, who is a retired EMT, came by and she denied any focal weakness in either extremity when she ambulated. No facial droop, no drooling, no altered speech. The patient appeared to be a little drowsy. She was brought to our facility and over the course of the next 4 hours she was again more and more drowsy and even more and more confused to the point that she could not remember who her son or her were, and about 1-1/2 ago the patient appeared to "snap out" of this confusion spell and decreased sensorium. Current she is alert and oriented x3. She is fully alert and actually spunky. Denies any complaints whatsoever at this point in time. REVIEW OF SYSTEMS: Has chronic dyspnea on exertion and chronic mild retching and abdominal swelling, but denies any other complaints. Admits to having some increased heartburn and belching today. No diarrhea or other GI or complaints. No change in her recent home medications. No exposure to any smoke. No polyuria or polydipsia. No arthralgia or rash. Also complaints of intermittent lower extremity cramps for which she takes calcium carbonate. SOCIAL HISTORY: and lives with her . Does not smoke, drink or use illicit drugs. ALLERGIES: Dopamine, dobutamine, iron, Lexapro, spironolactone and Cymbalta. HOME MEDICATIONS: Have not been reconciled. FAMILY HISTORY: Notable for Alzheimer's disease, coronary artery disease, hypertension and type 2 diabetes. SURGICAL HISTORY: She has had a TIPS placed, hysterectomy, cholecystectomy, appendectomy. LABORATORY WORK: White count 4000, hemoglobin 11, hematocrit 34, platelets 118,000; normal differential. Sodium 147, BUN 18, creatinine 0.8, glucose 132, calcium 9.7, albumin 3.5. Troponin x2 negative. Total bilirubin 2.8, AST 45, ALT 70, alkaline phosphatase 92. ProBNP 500. Urinalysis notable for trace protein, trace ketones, small blood, 20-40 RBCs. PH 7.54, pCO2 41, pO2 61 with bicarbonate of [address] Head [address]: No acute intracranial bleed. Chest film shows a right lung pleural effusion and improvement of the right pleural effusion noted a few months ago. No overt infiltrate noted. PHYSICAL EXAMINATION: GENERAL: Elderly woman who is in no acute distress, alert and oriented x3 with normal mood and affect. HEAD: Normocephalic, atraumatic. EYES: PERRLA. EOMI. She is mildly icteric and mildly pale. ENT: Oropharyngeal exam is grossly normal. Cranial nerves 2-12 are grossly intact. NECK: Supple. No JVD or carotid bruits. No thyromegaly. CHEST: Decreased entry in both bases, left worse than right with crepitations in the left base. CARDIOVASCULAR: First and second heart sounds heard with 2-3/6 ejection systolic murmur. Rhythm is regular. ABDOMEN: Slightly protuberant to distended. Soft, not tender. No organomegaly. Normal bowel sounds. No masses or organomegaly. RECTAL: Exam is deferred. EXTREMITIES: Patient has trace edema in both lower extremities. She has good distal pulses in all extremities. They are symmetrical. NEUROLOGIC: No gross focal deficits appreciated. She has a mild resting tremor in her right hand. SKIN: Has a few mild petechiae lesions on her shins. MUSCULAR: Grossly normal. ASSESSMENT: 1. Encephalopathy. 2. Type 2 diabetes. 3. Hypertension. 4. Advanced cirrhosis, status post TIPS. 5. Hypothyroidism. 6. Anemia of chronic inflammation. 7. Thrombocytopenia secondary to cirrhosis. 8. Metabolic alkalosis. 9. Carboxyhemoglobin level elevation, query etiology. 10.Chronic left pleural effusion. PLAN: This patient definitely has some degree of alkalosis which in and of itself can trigger hepatic encephalopathy. It is hard to say if the patient's encephalopathy was from a metabolic source from either mild dehydration as evidenced by hypernatremia or 2) metabolic alkalosis which could be due to diuretics and/or calcium carbonate (note this seems less likely since the patient does not have notable hypercalcemia or renal issues, but cannot be conclusively excluded). A cerebrovascular etiology is unlikely bases on her clinical picture, although it should be kept in mind. Even though the patient's ammonia levels are normal, it does not preclude hepatic encephalopathy, as there is no strong correlation between the degree of ammonia level and encephalopathy. Also, carboxyhemoglobin level is mildly elevated. Etiology of this cannot be determined, and chronic carboxyhemoglobin levels also do not correlate with severity of this toxic effect, although I am somewhat hesitant to ascribe this as the source of her confusion. For now will hold off diuretics until alkalosis is corrected with pre blood gas. Also hold off on calcium carbonate since this too can induce alkalosis alone. Withhold any potential neurotoxic medications until the patient has been observed 24 hours and has no recurrence of this spell. Will defer to Dr. Giovani Mariee for further workup in this patient as he deems necessary. DVT prophylaxis will be done with compression devices as this patient's cirrhosis increases the risks of bleeding and/or clotting. cc: MD Giovani Ahumada MD
[2019-02-18 03:32] LABS: PHOSPHORUS 3.4 mg/dL (2.7-4.5)
[2019-02-18] MEDS ORDERED: MORPHINE IV ONE (05:07)
[2019-02-18] MEDS: ZOFRAN IV PRN ×2 (05:24→14:05)
--- NOTE | 2019-02-18 06:27 | Diag Imaging Result Doc PS360 ---
CHEST-1 VIEW - 02/17/2019 INDICATION: abdo pain COMPARISON: 12/29/2018 FINDINGS: There is a small left basilar pleural effusion that has decreased slightly since prior. No infiltrates or edema. Heart size is top normal. IMPRESSION: Small left basilar pleural effusion. Electronically signed by Nestor Paul 02/18/2019 6:25 AM
[2019-02-18 08:13] LABS: ALLEN TEST NO; BE 4.7 mmoll (-3.0-3.0); BLOOD TYPE ARTERIAL; HCO3-(ACT) 28.6 mmoll (20.0-26.0); METHB 1.2 % (0.0-1.5); O2(CT) 14.9 mL/dL (15.0-23.0); O2HB 94.9 % (95.0-99.0); PCO2(98.6) 42 mmHg (35-45); PO2(98.6) 97 mmHg (60-100); SAMPLE BLOOD; SAO2 98.9 % (95.0-100.0); THB 11.1 g/dL (11.5-17.4); pH(98.6) 7.45 (7.35-7.45)
[2019-02-18 08:14] LABS: MODALITY CANNULA
--- NOTE | 2019-02-18 08:23 | EKG Report ---
Test Performed on : 02/17/2019 9:31:42 PM Test Reason : ams Blood Pressure : / mmHG Vent. Rate : 087 BPM Atrial Rate : 087 BPM P-R Int : 196 ms QRS Dur : 090 ms QT Int : 390 ms P-R-T Axes : 076 066 063 degrees QTc Int : 469 ms Sinus rhythm. with occasional premature ventricular complexes. Anterior infarct (cited on or before 28-FEB-2015) Abnormal ECG When compared with ECG of 29-DEC-2018 17:33, premature atrial complexes. are no longer present Unconfirmed Result
[2019-02-18] MEDS ORDERED: TUMS EXTRA STRENGTH PO PRN (08:51)
[2019-02-18] MEDS ORDERED: ULTRAM PO PRN (08:51)
[2019-02-18] MEDS ORDERED: ROBAXIN PO PRN (08:51)
[2019-02-18] MEDS ORDERED: DESYREL PO PRN (08:51)
[2019-02-18] MEDS ORDERED: SYNTHROID PO SCH (09:00)
[2019-02-18] MEDS ORDERED: VITAMIN B-12 PO SCH (09:00)
[2019-02-18] MEDS ORDERED: ASPIRIN EC PO SCH (09:00)
[2019-02-18] MEDS ORDERED: PROTONIX PO SCH (09:00)
[2019-02-18] MEDS ORDERED: LASIX PO SCH (09:00)
--- NOTE | 2019-02-18 09:16 | PROGRESS NOTE ---
DATE: 02/18/2019 SUBJECTIVE: The patient was admitted last night with acute confusion. She has had episodes like this in the past related to her cirrhosis. She had a Tips procedure in December. All notes were reviewed. The patient was being interviewed and examined. I talked to Dr. Giovani Mariee this morning, and he stated that as long as her mental status was intact that she should be able to go home fairly quickly, assuming that there are no other acute pathological findings. I informed the patient of this, and given the fact that her exam was completely normal this morning I am going to observe her in the hospital with ad-gregory activity and her regular home medications. If she is doing okay this afternoon, I will plan discharge. cc: MD Giovani Rodriguez MD
[2019-02-18 12:35] VITALS: BP 147/47
[2019-02-18] MEDS ORDERED: INSULIN PEN NEEDLES ONE (13:55)
[2019-02-18] MEDS ORDERED: BASAGLAR SUBQ SCH (21:00)
[2019-02-19] MEDS ORDERED: LASIX PO SCH (09:00)
== END 2019-02-18 15:34 | disposition home or self-care (01) | DRG 71 ==
LOC: ED 21:03 → SUATTDRO 02-18 02:38 → 4N 02-18 02:38
PROVIDERS: ADMIT Internal Medicine; ATTEND Internal Medicine
CPT/HCPCS: 51702; 70450; 71010; 71045; 80053; 81001; 82140; 82805; 82948; 83735; 83880; 84100; 84484; 85025; 87040; 93005; 94761; 96374; 96376; 99285; A9270; J2270; J2405; XXXXX

== ENCOUNTER 2019-04-23 11:46 | Inpatient (IN) ==
[2019-04-23] MEDS ORDERED: NS 500 ML IV ONE (12:59)
--- NOTE | 2019-04-23 13:37 | EKG Report ---
Test Performed on : 04/23/2019 12:29:20 PM Test Reason : Syncope Blood Pressure : / mmHG Vent. Rate : 086 BPM Atrial Rate : 086 BPM P-R Int : 206 ms QRS Dur : 102 ms QT Int : 416 ms P-R-T Axes : 073 075 038 degrees QTc Int : 497 ms Sinus rhythm. with premature atrial complexes. Septal infarct (cited on or before 28-FEB-2015) Abnormal ECG When compared with ECG of 17-FEB-2019 21:31, (Unconfirmed) premature ventricular complexes. are no longer present premature atrial complexes. are now present Questionable change in initial forces of Anterior leads Confirmed by Saúl SARGENT, Ramirez Goel ([id number]) on 04/28/2019 12:40:45 PM
--- NOTE | 2019-04-23 13:37 | Diag Imaging Result Doc PS360 ---
EXAM: CHEST-PORTABLE 04/23/2019 HISTORY: Congestion TECHNIQUE: AP upright portable chest at 1321 COMMENT: Compared to the previous study of 02/17/2019 the pleural fluid collection on the left is diminished and there has been improvement in the atelectasis or pneumonia in the left base. There is some blunting of the right costophrenic angle which is slightly more prominent than on the previous study. The lungs are otherwise unchanged in appearance. IMPRESSION: Improved left pleural effusion and basilar atelectasis versus pneumonia. Electronically signed by Skip Ga 04/23/2019 1:34 PM
[2019-04-23 13:53] LABS: URINE SOURCE CLEAN CATCH
[2019-04-23 13:58] LABS: BILIRUBIN URINE NEGATIVE (NEGATIVE); BLOOD URINE SMALL (NEGATIVE); COLOR YELLOW; GLUCOSE URINE NEGATIVE (NEGATIVE); KETONE URINE NEGATIVE (NEGATIVE); LEUKOCYTES URINE NEGATIVE (NEGATIVE); NITRITE URINE NEGATIVE (NEGATIVE); PH URINE 7.5; PROTEIN URINE NEGATIVE (NEGATIVE); TURBIDITY URINE CLEAR (CLEAR); UROBILINOGEN URINE NORMAL (NORMAL)
[2019-04-23 14:05] LABS: UR EPITHELIAL CELLS <10 /HPF (<10); URINE BACTERIA NEGATIVE /HPF; URINE WBC <10 /HPF (<10)
[2019-04-23] MEDS: ZOFRAN IV PRN (14:06)
[2019-04-23 14:14] LABS: BASO# 0.03 X1000 (0.0-0.2); BASO% 0.7 % (0.0-0.8); EOS# 0.19 X1000 (0.0-0.7); EOS% 4.7 % (0.0-10.0); HEMATOCRIT 32.3 % (37.0-47.0); HEMOGLOBIN 10.8 g/dL (12.0-16.0); LYMPH# 1.35 X1000 (1.2-3.4); LYMPH% 33.4 % (20.5-51.1); MCH 28.8 PG (27-31); MCHC 33.4 g/dL (33-37); MCV 86.1 FL (81-99); MONO# 0.29 X1000 (0.11-0.59); MONO% 7.2 % (1.7-9.3); MPV 9.3 FL (7.4-10.4); NEUT# 2.18 X1000 (1.4-6.5); PLT 109 X1000 (130-400); RBC 3.75 XMIL (4.2-5.4); RDW 15.5 % (11.5-14.5); WBC 4.04 X1000 (4.8-10.8)
[2019-04-23 14:26] LABS: PROTIME 17.9 Seconds (11.0-16.0)
[2019-04-23 14:27] LABS: INR 1.37
[2019-04-23 14:38] LABS: ALB/GLOB RATIO 0.9; ALBUMIN 3.2 g/dL (3.5-5.0); TOTAL BILIRUBIN 1.79 mg/dL (0.20-1.00); TOTAL PROTEIN 6.8 g/dL (6.3-8.3)
[2019-04-23 14:49] LABS: FREE T4 1.55 ng/dL (0.93-1.70); TSH 0.18 uIUmL (0.27-4.20)
[2019-04-23 14:59] LABS: CK INDEX 1.5 (0.0-2.5); CK-MB 3.73 ng/mL (0.0-5.0)
[2019-04-23] MEDS ORDERED: SODIUM CHLORIDE 0.9% INJ PRN (15:37)
[2019-04-23] MEDS ORDERED: PHENERGAN IV PRN (15:37)
[2019-04-23] MEDS: MORPHINE IV PRN (16:07)
[2019-04-23] MEDS: HUMALOG SUBQ SCH ×2 (19:47→20:59)
--- NOTE | 2019-04-24 03:50 | HISTORY AND PHYSICAL ---
CHIEF COMPLAINT: Intractable nausea. HISTORY OF PRESENT ILLNESS: A 73-year-old white female with a very complicated past medical history presents for evaluation of above-mentioned symptoms. Current history of present illness began on Saturday night. At that time, patient's noted mild confusion. Since then, symptoms have slowly progressed. Last night, patient was noted to have intractable nausea as well as diffuse myalgias and arthralgias. She denied fevers, chills, dysuria, hematuria, pyuria, change in bowel movements, shortness of breath, chest pains, palpitations, and congestion. Blood sugars were noted to be acceptable. Her p.o. intake up until that point had decreased. The patient ultimately rested overnight and upon waking this morning had persistent symptoms. The patient contacted my office. Appointment was scheduled. Upon arrival, patient was sent to the lab. While on the lab, patient had a near syncopal episode. I personally assisted with her transport to my examination room. While there, she experienced another syncopal episode. She was admitted directly to the ICU. Of note, patient has a history of nonalcoholic fatty cirrhosis. She is followed at [facility] and with Dr. Garza. She has slowly progressive disease. She is status post TIPS intervention. PAST MEDICAL HISTORY: 1. Allergic rhinitis. 2. Abnormal skin examination with multiple seborrheic keratoses, rosacea, and nevi. 3. Minimal carotid artery disease. 4. History of multiple episodes of chest discomfort with left heart catheterization in 2010 returning with normal angiography. 5. Cholelithiasis status post laparoscopic cholecystectomy in 1993. 6. Iron deficiency anemia. 7. Type 2 diabetes. 8. Reflux disease. 9. Hypertension. 10. History of premenopausal menorrhagia status post ISHAAN/unilateral SO in 1973. 11. History of intermittent syncopal episodes. 12. Nonalcoholic fatty liver cirrhosis. 13. Hypothyroidism. 14. Low back pain. 15. Depression. 16. Obesity. 17. Osteoarthritis. 18. Osteopenia. 19. Peptic ulcer disease. 20. Menopause. 21. Family history of ischemic heart disease. 22. Thrombocytopenia. 23. History of a urethral diverticulum status post resection. 24. Valvular heart disease. 25. Intermittent headaches. CURRENT MEDICATIONS: 1. Aspirin 81 mg daily. 2. Irbesartan 150 mg daily. 3. Lactulose as needed. 4. Lantus 10 units at bedtime. 5. Lasix 80 mg alternating with 40 mg daily. 6. Levothyroxine 112 mcg daily. 7. Zofran as needed. 8. Pantoprazole 40 mg daily. 9. Robaxin 500 mg every 8 hours as needed. 10. Singulair 10 mg daily. 11. Tramadol 50 mg 3 times daily as needed. 12. Trazodone 50 mg at bedtime as needed. 13. Vitamin B12 1000 mcg daily. ALLERGIES: Patient states she is allergic to Cymbalta which causes fatigue, dobutamine, iron, Lexapro, and spironolactone. SOCIAL HISTORY: The patient quit tobacco in 1958. She smoked socially for approximately 1 year. She denies alcohol or illicit drug use. 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 She enjoys traveling. She exercises intermittently. FAMILY HISTORY: Patient's father passed at age 72 secondary to complications of Alzheimer dementia. Patient's mother passed at age 82 secondary to complications of an acute myocardial infarction. She had a history of hyperlipidemia, atrial fibrillation, and diabetes. History of a heart attack is present in a sibling. REVIEW OF SYSTEMS: A 12 point review of systems was performed. Pertinent positives and negatives are noted in history present illness. PHYSICAL EXAMINATION: VITAL SIGNS: Temperature a 100.1 degrees, heart rate 85, respirations 12, blood pressure is 169/75. GENERAL: Chronically ill appearing, no acute distress. HEENT: Normocephalic, atraumatic. Pupils equal, round, react to light. Extraocular muscles intact. Sclerae anicteric. [place] conjunctivae. Oral and nasopharynx clear without exudate. NECK: Supple. No lymphadenopathy. No thyromegaly. No bruits auscultated. CARDIOVASCULAR: Regular rate and rhythm. No significant murmurs, rubs, or gallops. PULMONARY: Clear to auscultation bilaterally. ABDOMEN: Soft, nontender, nondistended. Positive bowel sounds. EXTREMITIES: Moves all extremities well. No significant clubbing, cyanosis, or edema. NEUROLOGIC: Cranial nerves 2-12 grossly intact. Motor and sensory grossly intact. PSYCHOLOGIC: Examination is appropriate. LABORATORY DATA: White blood cell count 4.04, hemoglobin 10.8, hematocrit 32.3, platelet count 109,000. PT 17.9, INR is 1.37. Sodium 140, potassium 4.0, chloride 102, bicarbonate 27, BUN 23, creatinine 1.0, glucose 120, calcium 9.0, total bilirubin 1.79, total protein 6.8, albumin 3.2, alkaline phosphatase 96, AST 36, ALT 21, ammonia 76. CK total 249, troponin less than 0.010. Chest x-ray revealed improved left pleural effusion and basilar atelectasis versus pneumonia. ASSESSMENT AND PLAN: A 73-year-old white female with a complicated past medical history presents to my office with profound nausea. Unfortunately, while in my office patient experienced 2 syncopal episodes. The patient will be admitted to the hospital for full evaluation and management of each of these conditions. 1. Admit to General Medicine. 2. Intractable nausea. I suspect at baseline patient will have underlying nausea secondary to nonalcoholic cirrhosis and TIPS procedure. I am concerned that patient may have an exacerbating factor. Laboratory data is significant for possibility of dehydration. We will also remain aware that underlying infectious etiologies could present in a similar fashion. For now, we will continue supportive care. We will start IV fluids. We will follow this clinically. 3. Syncopal episode. During the syncopal episode while in my office, the patient's pulse was palpable. The rhythm appeared to be regular. At this point, I suspect this may have been secondary to underlying volume depletion. We will continue IV fluids as noted. We will evaluate for possible etiologies with telemetry and multiple labs. We will follow this closely. 4. Nonalcoholic cirrhosis. Patient has longstanding disease. She is treated with optimum medical management. At this point, ammonia level is elevated. Interestingly, patient does appear to be slightly dry secondary to diuresis. We will treat patient with IV fluids very cautiously. We will continue the patient's optimized medical management for underlying cirrhosis. 5. Type 2 diabetes. We will hold patient's Lantus. We will start patient on sliding scale insulin. 6. Profound weakness. This likely is a consequence of the patient's acute illness. Once able, we will initiate physical therapy. 7. Hypertension. We will continue patient on her home regimen. 8. Fluid, electrolytes, nutrition. We will monitor electrolytes. Normal saline at 50 mL an hour for a total of 500 mL. Clear liquid diet. 9. Prophylaxis. Patient will be placed on SCDs. cc: Giovani Mariee MD
--- NOTE | 2019-04-24 04:24 | GASTROENTEROLOGY CONSULTATION ---
DATE: 04/23/2019 REQUESTING PHYSICIAN: Dr. Giovani Mariee. REASON FOR CONSULT: Nausea. HISTORY: This is a 73-year-old, white female with history of cirrhosis of the liver secondary to nonalcoholic steatohepatitis, cirrhosis with portal hypertension. She has history of hepatic hydrothorax and tense ascites requiring repeated large volume paracentesis. Subsequently, she underwent successful TIPS procedure in [place]. She was admitted to hospital after she presented with a generalized body pain and she has been experiencing severe nausea and dry heaving. She has been on Xifaxan 550 mg, 1 p.o. b.i.d., but she has had poor sleep pattern, had been confused at times, and has noticed her mental capacity has gotten worse. She is also complaining of dry heaving and nausea, but denies any vomiting per se. She has not been eating well and she denies any hematemesis or coffee-ground emesis. Has not had any melena or bright red blood per rectum. Her appetite is poor, despite taking Zofran remains nauseated. She has had no fever or chills. She denies any headache or dizziness or double vision. Denies any earache, ear discharge, ringing in the ears. Has not had any chest pain, shortness of breath, or palpitations. Denies any cough, sputum, hemoptysis. PAST MEDICAL HISTORY: Significant for a possible diabetes, hypertension, hypothyroidism. Carries a diagnosis of the depression, allergic rhinitis, and cirrhosis with portal hypertension, and nonalcoholic steatohepatitis status post TIPS, as mentioned above. MEDICATION: Prior to hospitalization she was on aspirin, Tums, vitamin B12, Lasix, Basaglar, Synthroid, Robaxin, Protonix, Ultram, and Desyrel. ALLERGIES: Claims to be allergic to dopamine, has had an anaphylactic reaction to that. SOCIAL HISTORY: Patient is , lives with her family. Does not smoke, does not drink, does not use illicit drugs. FAMILY HISTORY: Noncontributory. REVIEW OF SYSTEMS: As per HPI as above. PHYSICAL EXAMINATION: General: There is a very pleasant white female. She was sitting up in the bed in the ICU. Vital signs: She is afebrile, temperature 98.1 degrees, pulse is 83 per minute, breathing 20, blood pressure 161/71. She is 5 feet 1 inch tall. She weighs 136 pounds, 6 ounces. HEENT: Head is atraumatic, normocephalic. Eyes: Conjunctivae is normal. Sclerae anicteric. Nares are patent. No discharge. Mouth: Buccal mucosa is moist. Throat is normal. Neck: Neck is supple. No lymphadenopathy, thyromegaly. Chest: Bilaterally symmetrical, it is moving with respirations. Breath sounds audible bilaterally. No rhonchi or crepitation could be heard. Heart: Audible. No murmur could be appreciated. Abdomen: Slightly distended, but soft. It is nontender. I could not appreciate any mass or visceromegaly. No ascites noted. Bowel sounds are audible. No pedal edema, cyanosis, clubbing was noted. GLUE MAKER: Grossly intact, but she did have mild asterixis in the extremities. LABS: Reviewed, which showed WBC 4.04, hemoglobin 10.8, hematocrit 32.3, MCV 86.1, platelets were 109. PT was 17.9, INR 1.37. Sodium 140, potassium 4.0, chloride 102, bicarb is 27, BUN is 23, creatinine 1.0. Glucose 120, AST was 36, ALT 21. Urinalysis was negative. IMPRESSION: This is a 73-year-old, white female with history of cirrhosis of the liver with portal hypertension secondary non-alcoholic steatohepatitis. She has history of tense ascites resistant to diuretics, requiring multiple large volume paracentesis and had developed hepatic hydrothorax, had to undergo TIPS procedure. Currently on Xifaxan twice a day, was admitted with nausea and dry heaving. From examination and labs, I do not see any particular reason for her to have the GI symptoms. Her nausea could very well be related to Xifaxan itself, but she has mild encephalopathy and requires Xifaxan, unless we switch her from Xifaxan to lactulose, and follow. The other gastric issues, such as gastritis, gastric ulcer is a possibility. To cover that, I would start her on low-dose proton pump inhibitor, Prilosec or Protonix 20 mg every day. Start her on 2 g sodium diet. Start with GI soft of full liquid diet and advance as tolerated, depending on her response to the diet to her nausea and dry heaving. Unfortunately, with the condition of decompensated cirrhosis, she appears to be sliding very fast. Short of transplant, not much can be done except for stabilizing her. Her renal status is suggestive of dehydration. Agree with slight fluid and then follow the labs. Depending on her progress, further plans will be made. I had a lengthy discussion with the patient and her , who was present at the bedside. Explained to them my findings and plan, they understood and agreed to proceed. cc: MD Giovani Prieto MD
[2019-04-24] MEDS: SYNTHROID PO SCH (06:03)
[2019-04-24] MEDS: PROTONIX PO SCH (06:03)
[2019-04-24] MEDS: HUMALOG SUBQ SCH ×4 (06:03→20:48)
[2019-04-24] MEDS: LACTULOSE PO SCH (12:16)
[2019-04-24] MEDS: ZOFRAN IV PRN ×2 (12:37→20:57)
[2019-04-24] MEDS: MORPHINE IV PRN ×2 (16:07→20:44)
[2019-04-24] MEDS ORDERED: TYLENOL PO PRN (17:53)
--- NOTE | 2019-04-24 18:20 | GASTROENTEROLOGY PROGRESS NOTE ---
DATE: 04/24/2019 SUBJECTIVE: The patient was awake and alert. She was oriented to person and place. She was in no acute distress. At the time of my evaluation, Physical Therapy was working on sitting her on the side of the bed. OBJECTIVE: Vital Signs: Temperature 98.7 degrees, pulse 62, respirations 14, blood pressure 149/60. General: The patient is awake, alert, no acute distress. Abdomen: Soft, nontender. Positive bowel sounds. LABORATORY: Hematology: WBC 4.04 hemoglobin 10.8, hematocrit 32.3. Chemistry: Sodium 140, potassium 4.0, chloride 102, CO2 of 27, BUN 23, creatinine 1.0, glucose 120, total bilirubin 1.79, AST 36, ALT 21, alkaline phosphatase 96. Ammonia 76. ASSESSMENT AND PLAN: 1. Hepatic encephalopathy, improving. 2. Nausea. Her Xifaxan has been held. 3. Cirrhosis of the liver. Ammonia has been elevated. Xifaxan is currently on hold for possibility of side effects. We will add lactulose low dose daily. 4. Syncopal episode. The patient had a syncopal episode in Dr. Mariee' office. 5. Other medical problems: Hypertension, type 2 diabetes. Continue current management. 6. Continue current medications. Add low-dose lactulose. Hold Xifaxan. 7. We will also add Benadryl 25 mg p.o. every night to see if this will help with her insomnia. 8. We will continue to follow, and further plans will be made according to her progress. 9. The patient was also seen by Dr. Garza. On-call physician, will be covering over the weekend. Dictated by JORDON Hanson for Kong Garza MD cc: JORDON Aparicio MD Scott A. Matthews, MD
[2019-04-24] MEDS: BENADRYL PO SCH (20:44)
--- NOTE | 2019-04-24 21:10 | PROGRESS NOTE ---
DATE: 04/24/2019 SUBJECTIVE: Upon my arrival this morning, patient was much more alert. Patient states that she had significant pain and a difficult early part of her evening, but did ultimately rest well. This morning, she is alert and oriented. She has tolerated her breakfast. Throughout the day, patient states she did reasonably well. She was assisted to sit in the chair twice. She did have weakness and some unsteady gait, but did reasonably well. The patient states at approximately 4 p.m., she developed diffuse pain. She was treated with one dose of IV morphine with improvement. This evening, patient states that she continues to improve. Her nausea is controlled. Xifaxan has been discontinued by Gastroenterology secondary to the possibility of this precipitating nausea. Lactulose was initiated for hepatic encephalopathy. The patient is currently being transferred from the intensive care unit setting to the CICU. She denies fevers, chills, shortness of breath, or chest discomfort. OBJECTIVE: Vital Signs: T-max 100.1, heart rate 71 to 81, respirations 14 to 18, blood pressure 91 to 164 over 51 to 74. General: Chronically ill appearing, no acute distress. Cardiovascular: Regular rate and rhythm. No significant murmurs, rubs, or gallops. Pulmonary: Clear to auscultation bilaterally. Abdomen: Soft, nontender, and nondistended. Positive bowel sounds. Extremities: Moves all extremities well. No significant clubbing, cyanosis, or edema. Dermatologic: Evaluation reveals no evidence of rash. LABORATORY DATA: None. ASSESSMENT AND PLAN: 1. Intractable nausea: This likely was a consequence of nonalcoholic cirrhosis with associated transjugular intrahepatic portosystemic shunt intervention, Xifaxan, and dehydration. With supportive care and modest hydration, patient has achieved improvement. As above, Xifaxan has been held. For now, we will continue symptomatic management with as needed Phenergan. 2. Syncopal episode: While in my office, patient experienced 2 syncopal episodes. The patient's blood pressure remained stable. Her pulse was regular. At this point, I suspect this was secondary to volume depletion. With 500 mL normal saline, patient has achieved significant improvement in her hemodynamics. She has had no further syncopal episodes. We will continue to follow this while hospitalized with telemetry as well. 3. Nonalcoholic cirrhosis: The patient has advanced disease. As above, she has had a transjugular intrahepatic portosystemic shunt intervention. I suspect the transjugular intrahepatic portosystemic shunt itself may be precipitating some of her nausea. We will treat hepatic encephalopathy as described below. At this point, patient continues to appear euvolemic. In the next several days, we likely will need to resume her diuretic intervention as this has been held. 4. Hepatic encephalopathy: Patient's ammonia level was noted to be elevated upon admission. Xifaxan has been discontinued. Low dose lactulose has been initiated. We will follow this while hospitalized. 5. Profound pain: This is quite interesting. Patient does have intermittent episodes of diffuse pain. We will resume her as needed tramadol and Tylenol. We have morphine available for breakthrough. I anticipate with better control of her above mentioned diagnoses, this may improve as well. 6. Type 2 diabetes: Patient's blood sugars remained well controlled without insulin intervention. We will continue to hold her Lantus. We will continue to cover patient with sliding scale insulin. At discharge, we likely will resume Lantus therapy. 7. Profound weakness: This likely is a consequence of her acute and chronic illnesses. Physical therapy has been initiated. We will continue this. 8. Hypertension: Historically, she has been treated with irbesartan therapy. She has not required this in several months. Blood pressure is slightly elevated. For now, we will follow this. We may consider resuming irbesartan depending on the extent of her hypertension. 9. Disposition: At this point, patient continues to require fci care in a hospital setting. We will plan discharge home once appropriate. cc: Giovani Mariee MD
[2019-04-25] MEDS: PROTONIX PO SCH (06:23)
[2019-04-25] MEDS: SYNTHROID PO SCH (06:23)
[2019-04-25] MEDS: HUMALOG SUBQ SCH ×4 (06:24→20:28)
[2019-04-25] MEDS: MORPHINE IV PRN ×2 (06:27→17:57)
[2019-04-25] MEDS: VITAMIN B-12 PO SCH (08:26)
[2019-04-25] MEDS: SINGULAIR PO SCH (08:27)
[2019-04-25] MEDS: LACTULOSE PO SCH (08:27)
[2019-04-25] MEDS: ASPIRIN PO SCH (08:27)
[2019-04-25] MEDS: ZOFRAN IV PRN (12:21)
--- NOTE | 2019-04-25 16:06 | PROGRESS NOTE ---
DATE: 04/25/2019 SUBJECTIVE: Ms. Rosanna Baum was admitted to [facility] with hepatic encephalopathy. She has underlying non alcoholic cirrhosis. She has had a previous TIPS procedure. She is much more alert and interactive this morning. She is oriented to name, place and time. They have resumed low-dose lactulose. Her ammonia level yesterday was 76. She continues to have persistent nausea, although she reports the nausea has improved. She has not had any vomiting. She is tolerating a bland diet. She has a history of type 2 non insulin- dependent diabetes mellitus. Her blood sugars are consistently less than 150. She is afebrile. OBJECTIVE: Vital Signs: Pulse is 73, respirations 17, BP 160/55. CV: Regular rate and rhythm with a 2/6 systolic ejection murmur at the left sternal margin. Lungs: Clear. Abdomen: Soft, nontender, with active bowel sounds. ASSESSMENT AND PLAN: 1. Hepatic encephalopathy. She does have nonalcoholic cirrhosis she has had a previous transjugular intrahepatic portosystemic shunt procedure. We will continue low-dose lactulose, and recheck an ammonia level in the morning. 2. Nausea. I suspect that the nausea is due to the underlying cirrhosis and volume depletion. I wonder if there is some degree of gastroparesis. She reports that when she does well at home that she has nausea, diminished appetite, and early satiety. She does have diabetes. Perhaps she would benefit from a gastric emptying study as an outpatient. Potentially we could try. If she did have gastroparesis, we could try an anti gastroparetic diet or perhaps low-dose Reglan. cc: MD Giovani Marcus MD
[2019-04-25] MEDS: DESYREL PO PRN (21:06)
[2019-04-25] MEDS: ULTRAM PO PRN (21:06)
[2019-04-25] MEDS: BENADRYL PO SCH (21:06)
[2019-04-26] MEDS: HUMALOG SUBQ SCH ×4 (06:45→20:58)
[2019-04-26] MEDS: SYNTHROID PO SCH (06:46)
[2019-04-26] MEDS: PROTONIX PO SCH (06:47)
[2019-04-26 06:49] LABS: AGAP 9; ALB/GLOB RATIO 0.9; ALBUMIN 2.9 g/dL (3.5-5.0); ALKALINE PHOSPHATASE 88 U/L (32-104); BUN 19 mg/dL (8-22); CALCIUM 8.9 mg/dL (8.8-10.2); CHLORIDE 104 mmol/L (98-107); COSMO 281; CREATININE 0.9 mg/dL (0.5-0.9); ESTIMATED GFR > 60; GLUCOSE 119 mg/dL (70-104); GOT 40 U/L (10-30); GPT 21 U/L (10-36); SODIUM 139 mmol/L (136-145); TCO2 26 mmol/L (25-35); TOTAL BILIRUBIN 2.13 mg/dL (0.20-1.00)
[2019-04-26] MEDS: VITAMIN B-12 PO SCH (08:35)
[2019-04-26] MEDS: ASPIRIN PO SCH (08:35)
[2019-04-26] MEDS: SINGULAIR PO SCH (08:35)
[2019-04-26] MEDS: LACTULOSE PO SCH ×4 (08:35→16:57)
--- NOTE | 2019-04-26 12:06 | PROGRESS NOTE ---
DATE: 04/26/2019 SUBJECTIVE: Ms. Baum has a history of nonalcoholic cirrhosis. She has had a previous TIPS procedure. She seems much more confused, sluggish, disoriented, and drowsy this morning. She will open her eyes to verbal stimuli. She has been taking lactulose 10 mL daily. Her ammonia level has jumped from 76 to 162. OBJECTIVE: She is afebrile. Vital signs are stable. CV: Regular rate and rhythm, with a 2/6 systolic ejection murmur at the left sternal margin. Lungs: Clear. Abdomen: Soft, nontender, with active bowel sounds. ASSESSMENT AND PLAN: Hepatic encephalopathy. Her ammonia level is trending up. I will increase the lactulose to 10 mL three times a day and recheck an ammonia level in the morning. cc: MD Giovani Marcus MD
[2019-04-26] MEDS: ZOFRAN IV PRN (13:31)
[2019-04-26] MEDS: ROBAXIN PO PRN ×2 (14:22→20:58)
[2019-04-26] MEDS: ULTRAM PO PRN ×2 (14:22→20:57)
[2019-04-26] MEDS: DESYREL PO PRN (20:57)
[2019-04-26] MEDS: BENADRYL PO SCH (20:58)
[2019-04-27] MEDS: MORPHINE IV PRN (00:28)
[2019-04-27] MEDS: PROTONIX PO SCH (06:21)
[2019-04-27] MEDS: SYNTHROID PO SCH (06:21)
[2019-04-27] MEDS: HUMALOG SUBQ SCH ×4 (06:22→21:20)
--- NOTE | 2019-04-27 09:34 | PROGRESS NOTE ---
DATE: 04/27/2019 SUBJECTIVE: Mrs. Baum has a history of nonalcoholic induced cirrhosis complicated by hepatic encephalopathy. We increased the lactulose to 10 mL t.i.d. Her ammonia level has dropped from 162 to 130. She seems more alert and interactive this morning. She was sitting up in a chair. She was eating breakfast. She was oriented to name, place, and time. She is not having uncontrollable diarrhea. SUBJECTIVE: Vital Signs: Temperature 98.6 degrees, pulse 64, respirations 16, blood pressure 123/40. Cardiovascular: Regular rate and rhythm with a 2/6 systolic ejection murmur. Lungs: Clear. Abdomen: Soft, nontender, with active bowel sounds. No hepatosplenomegaly. No abdominal bruits. ASSESSMENT AND PLAN: Hepatic encephalopathy. Clinically she is better. We will continue lactulose 10 mL t.i.d. and recheck an ammonia level in the morning. cc: MD Giovani Marcus MD
[2019-04-27] MEDS: SINGULAIR PO SCH (09:39)
[2019-04-27] MEDS: VITAMIN B-12 PO SCH (09:39)
[2019-04-27] MEDS: ASPIRIN PO SCH (09:39)
[2019-04-27] MEDS: LACTULOSE PO SCH ×3 (09:39→17:24)
[2019-04-27] MEDS: ULTRAM PO PRN ×2 (13:44→21:21)
[2019-04-27] MEDS: ZOFRAN IV PRN (18:54)
[2019-04-27] MEDS: BENADRYL PO SCH (21:20)
[2019-04-27] MEDS: DESYREL PO PRN (21:20)
[2019-04-27] MEDS: ROBAXIN PO PRN (21:21)
[2019-04-28] MEDS: MORPHINE IV PRN (03:33)
[2019-04-28] MEDS: SYNTHROID PO SCH ×2 (05:29→06:00)
[2019-04-28] MEDS: PROTONIX PO SCH ×2 (05:29→06:00)
[2019-04-28] MEDS: HUMALOG SUBQ SCH ×4 (06:06→22:35)
[2019-04-28] MEDS ORDERED: LASIX PO SCH (09:00)
[2019-04-28] MEDS: SINGULAIR PO SCH (09:26)
[2019-04-28] MEDS: VITAMIN B-12 PO SCH (09:26)
[2019-04-28] MEDS: ASPIRIN PO SCH (09:26)
[2019-04-28] MEDS: LACTULOSE PO SCH ×2 (09:26→22:07)
--- NOTE | 2019-04-28 12:18 | GASTROENTEROLOGY PROGRESS NOTE ---
DATE: 04/28/2019 SUBJECTIVE: Patient is sitting up in a chair in no acute distress. Her is at the bedside. She is still complaining of some nausea. She has noticed no real improvement with holding Xifaxan. OBJECTIVE: Vital Signs: Temperature 98.0 degrees, pulse 74, respirations 18, blood pressure 130/39. General: Patient is awake and alert, no acute distress. Respiratory: Lung sounds essentially clear. Abdomen: Soft, nontender. Positive bowel sounds. LABORATORY: Hematology: WBC 4.04, hemoglobin 10.8, hematocrit 32.3, MCV 86.1. Chemistry from 04/26/2019: Sodium 139, potassium 4.0, chloride 104, CO2 26. BUN 19, creatinine 0.9, glucose 119, ammonia 162. ASSESSMENT AND PLAN: Hepatic encephalopathy. We will restart her Xifaxan, but give once daily instead of twice daily, decrease her lactulose from three times a day to twice a day. We will add Antivert 25 mg three times a day for possible central cause of nausea. Will continue to follow. Further plans will be made according to her progress. I have discussed this case with Dr. Garza. Dictated by JORDON Hanson for Kong Garza MD cc: JORDON Aparicio MD Scott A. Matthews, MD
--- NOTE | 2019-04-28 14:17 | PROGRESS NOTE ---
DATE: 04/28/2019 SUBJECTIVE: The events of the weekend were reviewed. In summary, on Saturday, patient developed increasing confusion. Ammonia level was noted to be elevated. Patient's lactulose was increased to 3 times daily. Since Saturday, patient's ammonia has decreased from 162 to 105. This morning, patient was alert. She is sitting upright in her chair. Thus far, she has tolerated lactulose reasonably well. She does note persistent nausea associated with daily usage. Her p.o. intake currently is adequate. Her weight is up from admission, likely secondary to holding Lasix. She denies fevers, chills, shortness of breath, or chest discomfort. OBJECTIVE: Temperature maximum 98.3, heart rate 65-76, respirations 14-19, blood pressure 125 to 145 over 39 to 45.General: Well nourished, well developed, no acute distress. Cardiovascular: Regular rate and rhythm. No significant murmurs, rubs, or gallops. Pulmonary: Clear to auscultation bilaterally. Abdomen: Soft, nontender, nondistended. Positive bowel sounds. Extremities: Moves all extremities well. No significant clubbing, cyanosis, or edema. Dermatologic: Evaluation reveals no evidence of rash. DIAGNOSTIC STUDIES: Ammonia level is 105. ASSESSMENT AND PLAN: 1. Intractable nausea - The patient has achieved improvement, but not resolution, since admission. This likely is a consequence of cirrhosis, medication associated, and dehydration. The patient's Xifaxan has been held, but patient has demonstrated some nausea associated with lactulose. We will address patient's nonalcoholic cirrhosis with associated hepatic encephalopathy as described below. For now, we will continue supportive care. 2. Syncopal episode - This was diagnosed while in my office upon admission. Patient has had no further episodes while hospitalized. With a better control of her volume, she has achieved resolution. 3. Nonalcoholic cirrhosis with associated hepatic encephalopathy - Unfortunately, patient has advanced disease. She is status post TIPS intervention. As described above, ammonia level increased considerably over the weekend. Lactulose was increased to 3 times daily. I have discussed this in detail with Dr. Garza. As patient's ammonia level was controlled with Xifaxan, we will try to adjust both lactulose and Xifaxan therapies. We will start once daily Xifaxan and decrease lactulose. We will follow this closely as well. 4. Profound pain - Patient has achieved improvement with as-needed tramadol and Tylenol therapy. 5. Type 2 diabetes - The patient is treated with sliding scale insulin. Blood sugars are reasonably controlled. 6. Profound weakness - The patient is currently being treated with physical therapy. Her energy level is slowly improving. 7. Hypertension - The patient's irbesartan has been held. Blood pressure is reasonably controlled without medical intervention. 8. Volume overload - The patient's Lasix was resumed this morning. We will follow serial weights. DISPOSITION: At this point, patient continues to require custodial care in a hospital setting. We will plan discharge home once appropriate. cc: Giovani Mariee MD MTDD
[2019-04-28] MEDS: ANTIVERT PO SCH ×2 (14:28→22:08)
[2019-04-28] MEDS ORDERED: XIFAXAN PO SCH (21:00)
[2019-04-28] MEDS: BENADRYL PO SCH (22:07)
[2019-04-28] MEDS: ULTRAM PO PRN (22:07)
[2019-04-28] MEDS: ROBAXIN PO PRN (22:07)
[2019-04-28] MEDS: DESYREL PO PRN (22:08)
[2019-04-29] MEDS: MORPHINE IV PRN (02:17)
[2019-04-29] MEDS: PROTONIX PO SCH ×2 (05:55→06:09)
[2019-04-29] MEDS: SYNTHROID PO SCH ×2 (05:55→06:09)
[2019-04-29 05:56] LABS: BASO# 0.03 X1000 (0.0-0.2); BASO% 0.5 % (0.0-0.8); EOS# 0.47 X1000 (0.0-0.7); EOS% 8.3 % (0.0-10.0); HEMATOCRIT 28.4 % (37.0-47.0); HEMOGLOBIN 9.8 g/dL (12.0-16.0); LYMPH# 1.74 X1000 (1.2-3.4); LYMPH% 30.8 % (20.5-51.1); MCH 29.1 PG (27-31); MCHC 34.5 g/dL (33-37); MCV 84.3 FL (81-99); MONO# 0.61 X1000 (0.11-0.59); MONO% 10.8 % (1.7-9.3); MPV 9.6 FL (7.4-10.4); NEUT% 49.6 % (42.2-75.2); PLT 109 X1000 (130-400); RBC 3.37 XMIL (4.2-5.4); RDW 15.2 % (11.5-14.5); WBC 5.65 X1000 (4.8-10.8)
[2019-04-29] MEDS: HUMALOG SUBQ SCH ×2 (06:09→11:13)
[2019-04-29 06:53] LABS: AGAP 9; ALB/GLOB RATIO 0.9; ALBUMIN 2.5 g/dL (3.5-5.0); ALKALINE PHOSPHATASE 103 U/L (32-104); BUN 23 mg/dL (8-22); CALCIUM 8.1 mg/dL (8.8-10.2); CHLORIDE 102 mmol/L (98-107); COSMO 282; CREATININE 0.9 mg/dL (0.5-0.9); ESTIMATED GFR > 60; GLUCOSE 145 mg/dL (70-104); GOT 44 U/L (10-30); GPT 28 U/L (10-36); POTASSIUM 3.8 mmol/L (3.5-5.1); SODIUM 138 mmol/L (136-145); TCO2 27 mmol/L (25-35); TOTAL PROTEIN 5.4 g/dL (6.3-8.3)
[2019-04-29] MEDS: SINGULAIR PO SCH (09:00)
[2019-04-29] MEDS ORDERED: LASIX PO SCH (09:00)
[2019-04-29] MEDS: VITAMIN B-12 PO SCH (09:00)
[2019-04-29] MEDS: ASPIRIN PO SCH (09:00)
[2019-04-29] MEDS: ANTIVERT PO SCH (09:00)
[2019-04-29] MEDS: LACTULOSE PO SCH (09:01)
[2019-04-29 12:35] VITALS: BP 126/35
--- NOTE | 2019-04-29 17:19 | GASTROENTEROLOGY PROGRESS NOTE ---
DATE: 04/29/2019 SUBJECTIVE: Patient was seen today. She was in no acute distress. She was sitting up in a chair. Her was at the bedside. She states her nausea has improved. She states she has not had to receive anything for nausea since yesterday. We had adjusted some of her medications and also added a medication. She is currently taking lactulose low-dose twice a day and taking Xifaxan once a day. We added Antivert 3 times a day. Patient states she tolerated her breakfast well. OBJECTIVE: Vital Signs: Temperature 97.6 degrees, pulse 64, respirations 15, blood pressure 126/35. General: Patient is awake and alert in no acute distress. Respiratory: Lung sounds essentially clear. Abdomen: Soft and nontender, nondistended. Positive bowel sounds. LABORATORY: Hematology: WBC 5.65, hemoglobin 9.8, hematocrit 28.4, platelets 109,000. Chemistry: Sodium 138, potassium 3.8, chloride 102, CO2 of 27, BUN 23, creatinine 0.9, glucose 145, calcium 8.1, total bilirubin 1.40, AST 44, ALT 28, ammonia today is 66. ASSESSMENT AND PLAN: 1. Nausea has improved. We have adjusted some of her medications. She is currently taking Xifaxan daily. That was restarted yesterday. Decreased lactulose to twice a day and added Antivert 3 times a day. 2. Nonalcoholic cirrhosis of the liver with history of hepatic encephalopathy. The patient is status post TIPS procedure. Continue current management. Will continue to follow and further plans will be made according to her progress. We have also added zinc lab that is a send-off, and we will follow on this results. I have discussed this case with Dr. Garza. Dictated by JORDON Hanson for Kogn Garza MD cc: JORDON Aparicio MD Scott A. Matthews, MD
--- NOTE | 2019-04-30 09:51 | DISCHARGE SUMMARY ---
ADMISSION DATE: 04/23/2019 DISCHARGE DATE: 04/29/2019 ADMISSION DIAGNOSIS: Intractable nausea. DISCHARGE DIAGNOSES: 1. Intractable nausea, improved. 2. Syncopal episode, likely secondary to hypovolemia and orthostasis. 3. Nonalcoholic fatty cirrhosis with associated hepatic encephalopathy, improved. 4. Intractable pain, stable. 5. Type 2 diabetes, present on arrival. 6. Profound weakness, improving. 7. Hypertension, present on arrival. 8. Excess volume, stable. CONSULTATIONS: Dr. Garza with Gastroenterology was consulted for further evaluation and management of nonalcoholic cirrhosis. PROCEDURES: Chest x-ray was performed on 04/23/2019 which revealed improved left pleural effusion and basilar atelectasis versus pneumonia when compared to x-ray of 02/07/2019. HISTORY AND PHYSICAL EXAMINATION: See admit note. DISCHARGE EXAMINATION: Vital Signs: Prior to discharge, temperature 97.6 degrees, heart rate 64, respirations 15 and blood pressure is 126/35. General: Chronically ill-appearing in no acute distress. Cardiovascular: Regular rate and rhythm. No significant murmurs, rubs, or gallops. Pulmonary: Clear to auscultation bilaterally. Abdomen: Soft, nontender, and nondistended. Positive bowel sounds. Extremities: Moves all extremities well. No significant clubbing, cyanosis, or edema. Dermatologic: Evaluation reveals no evidence of rash. LABORATORY DATA: Prior to discharge, white blood cell count 5.65. Hemoglobin 9.8, hematocrit 28.4, and platelet count 109,000. Sodium 138, potassium 3.8, chloride 102, bicarb 27, BUN 23, creatinine 0.9, glucose 145, and calcium 8.1. Total bilirubin 0.40. Total protein 5.4, albumin 2.5, and alkaline phosphatase 103, AST 44, ALT 28, and ammonia 66. HOSPITAL COURSE: Patient was admitted as per history and physical examination. Hospital course per condition is as follows. ASSESSMENT AND PLAN: 1. Intractable nausea-Upon admission, patient was noted to have intractable nausea. The p.o. intake has decreased considerably. Differential diagnosis upon admission included hepatic encephalopathy associated nausea, underlying infection, and medication induced. Underlying infection was ruled out. With medication adjustments, patient has achieved improvement, although not complete resolution. The patient will be discharged with lactulose twice daily. I had decreased Xifaxan to once daily. We will add Antivert 3 times a day for nausea. We will follow this closely as an outpatient. 2. Syncopal episode-this likely was secondary to volume depletion as well as a vasovagal event associated with intractable nausea. With hydration and treatment of nausea, patient has had no further episodes. Telemetry while hospitalized was without significant pathology. 3. Nonalcoholic cirrhosis with associated hepatic encephalopathy-upon admission, patient was noted to have modest confusion. This was felt likely secondary to her hypovolemic state. Because of the nausea, Xifaxan was discontinued. Unfortunately, patient's ammonia level quickly increased from 76 upon admission to 162. The patient was noted to have considerable mental status changes at that level. Lactulose was initiated. The patient tolerated this reasonably well. At time of discharge, patient was transitioned to lactulose 10 mL twice daily and Xifaxan once daily. Ammonia level at discharge was 66. This will need to be monitored closely as an outpatient. 4. Excess volume associated with nonalcoholic cirrhosis-upon admission, patient appeared to be dry. This likely represented an over diuresis. The patient gained approximately 10 pounds while hospitalized. This likely was primarily fluid. At time of discharge, patient was resumed on her previous Lasix schedule. Her dry weight is approximately 140. We will ask patient to titrate up or down on the patient's Lasix to maintain weight of approximately 140. This also will need to be monitored and adjusted as an outpatient. 5. Profound/intractable pain-The patient has had intermittent lower extremity pain. The patient describes the pain is different from a muscle spasm. She has been treated with tramadol and as needed morphine as an inpatient. We will transition patient away from morphine. We will continue as needed. Tramadol, acetaminophen, and Robaxin therapy. We will follow this. 6. Type 2 diabetes-patient was treated with sliding scale insulin while hospitalized. She is treated with the insulin glargine 10 units at bedtime as an outpatient. We will ask patient to resume insulin glargine 5 units at bedtime and titrate up to maintain adequate blood sugar controls. The patient has been monitoring and managing her blood sugar for many years. She understands the current plan. 7. Profound weakness-this likely is a consequence of her acute illness as well as underlying cirrhosis. The patient did reasonably well with Physical Therapy. We will continue to encourage activity. 8. Hypertension-The patient's irbesartan continues to be held. Blood pressure is controlled without medical intervention. DISCHARGE CONDITION: Stable. DISPOSITION: Discharged to home. MEDICATIONS: 1. Trazodone 100 mg at bedtime as needed. 2. Lactulose 10 mL twice daily. 3. Lasix 40 mg alternating with 80 mg daily. The patient is to titrate up or down to maintain weight of 140. 4. Pantoprazole 40 mg daily. 5. Robaxin 500 mg 3 times daily as needed. 6. Singulair 10 mg daily. 7. Acetaminophen 650 mg every 6 hours as needed. 8. Tramadol 50 mg 1 to 2 tablets every 6 hours as needed. 9. Vitamin B12 1000 mcg daily. 10. Xifaxan 550 mg daily at 9:00 in the evening. 11. Antivert 25 mg 3 times daily. 12. Aspirin 81 mg daily. 13. Levothyroxine 112 mcg daily. 14. Insulin glargine to titrate up to 10 units at bedtime. FOLLOWUP: The patient is to follow up with me in approximately 1 to 2 weeks. Patient is to follow up with Dr. Garza in approximately 1 to 2 weeks. cc: Giovani Mariee MD
== END 2019-04-29 14:56 | disposition home or self-care (01) | DRG 392 ==
LOC: DIRADM 11:46 → ICU 12:14 → 3S 04-24 18:16
PROVIDERS: ADMIT Internal Medicine; ATTEND Internal Medicine
CPT/HCPCS: 71010; 71045; 80053; 81001; 82140; 82150; 82550; 82553; 82948; 83690; 84439; 84443; 84484; 84630; 85025; 85610; 87040; 87275; 87276; 87804; 93005; 93010; 94761; 94799; 97110; 97116; 97162; 97530; A9270; J1815; J2270; J2405; J2550; J7040; XXXXX

== ENCOUNTER 2019-05-09 20:03 | Inpatient (IN) ==
--- NOTE | 2019-05-09 22:07 | Diag Imaging Result Doc PS360 ---
EXAM: CHEST-1 VIEW INDICATION: weakness TECHNIQUE: One view COMPARISON: 04/23/2019 FINDINGS: There are bilateral small pleural effusions that are stable to slightly larger than the previous study. The central vasculature appears mildly prominent and there are mild increased interstitial markings suggesting mild pulmonary venous congestion and mild edema. The cardiac silhouette is borderline prominent but stable. IMPRESSION: Bilateral small pleural effusions and suggestion of mild pulmonary venous congestion and interstitial edema. Electronically signed by Jose Alberto Lou 05/09/2019 10:04 PM
[2019-05-09 22:11] LABS: BASO# 0.01 X1000 (0.0-0.2); BASO% 0.1 % (0.0-0.8); HEMATOCRIT 30.3 % (37.0-47.0); HEMOGLOBIN 10.6 g/dL (12.0-16.0); IMM GRAN# 0.02 X1000 (0.0-0.04); IMM GRAN% 0.2 % (0.0-0.5); LYMPH# 1.54 X1000 (1.2-3.4); LYMPH% 15.7 % (20.5-51.1); MCH 29.7 PG (27-31); MCV 84.9 FL (81-99); MONO# 0.99 X1000 (0.11-0.59); MONO% 10.1 % (1.7-9.3); MPV 9.2 FL (7.4-10.4); NEUT# 7.23 X1000 (1.4-6.5); NEUT% 73.9 % (42.2-75.2); PLT 123 X1000 (130-400); RBC 3.57 XMIL (4.2-5.4); RDW 15.6 % (11.5-14.5); WBC 9.79 X1000 (4.8-10.8)
[2019-05-09 22:20] LABS: INR 1.34; PROTIME 17.6 Seconds (11.0-16.0)
[2019-05-09 22:37] LABS: ALB/GLOB RATIO 0.9; ALBUMIN 2.8 g/dL (3.5-5.0); CALCIUM 8.5 mg/dL (8.8-10.2); POTASSIUM 3.9 mmol/L (3.5-5.1); TOTAL BILIRUBIN 2.06 mg/dL (0.20-1.00)
[2019-05-09 22:55] LABS: URINE SOURCE CLEAN CATCH
[2019-05-09 23:00] LABS: BILIRUBIN URINE NEGATIVE (NEGATIVE); BLOOD URINE SMALL (NEGATIVE); COLOR YELLOW; GLUCOSE URINE NEGATIVE (NEGATIVE); KETONE URINE NEGATIVE (NEGATIVE); LEUKOCYTES URINE SMALL (NEGATIVE); NITRITE URINE NEGATIVE (NEGATIVE); PH URINE 5.5; PROTEIN URINE NEGATIVE (NEGATIVE); SP GRAVITY URINE 1.017; TURBIDITY URINE CLEAR (CLEAR); UROBILINOGEN URINE NORMAL (NORMAL)
[2019-05-09 23:01] LABS: UR EPITHELIAL CELLS <10 /HPF (<10); URINE BACTERIA NEGATIVE /HPF; URINE RBC <10 /HPF (<10); URINE WBC <10 /HPF (<10)
[2019-05-09] MEDS ORDERED: LACTULOSE PO ONE (23:27)
--- NOTE | 2019-05-10 00:02 | PROVIDER DOCUMENTATION ---
This chart was entered by Ladi Her Scribe, acting as scribe for Carolyn Stiles MD. HPI-General Adult - General Chief Complaint: General Adult Stated Complaint: liver failure Time Seen by Provider: 05/09/19 20:45 Source: patient, family Allergies/Adverse Reactions: Patient Allergies Allergy/AdvReac Type Severity Reaction Status Date / Time dopamine [Dopamine] Allergy Severe ANAPHYLAXIS Verified 02/17/19 21:15 Home Medications: Home Medication List Medication Instructions Recorded Confirmed Last Taken Type Insulin Glargine [Basaglar] 10 unit SUBQ QHS insuln.pen 01/03/19 04/25/19 Unknown Rx Acetaminophen [Tylenol] 650 mg PO Q6H PRN PRN tab 04/29/19 Unknown Rx Aspirin 81 mg PO DAILY chewtab 04/29/19 Unknown Rx Cyanocobalamin [Vitamin B-12] 1,000 microgm PO DAILY tab 04/29/19 Unknown Rx Furosemide [Lasix] 40 mg PO Q48H tab 04/29/19 Unknown Rx Furosemide [Lasix] 80 mg PO Q48H tab 04/29/19 Unknown Rx Lactulose 10 ml PO BID #0 udc 04/29/19 Unknown Rx Levothyroxine [Synthroid] 112 microgm PO DAILY@0700 tab 04/29/19 Unknown Rx Meclizine [Antivert] 25 mg PO 0900,1500,2100 tab 04/29/19 Unknown Rx Methocarbamol [Robaxin] 500 mg PO TID PRN PRN tab 04/29/19 Unknown Rx Montelukast [Singulair] 10 mg PO DAILY tab 04/29/19 Unknown Rx Pantoprazole [Protonix] 40 mg PO DAILY@0700 tab 04/29/19 Unknown Rx Rifaximin [Xifaxan] 550 mg PO DAILY@2100 tab 04/29/19 Unknown Rx Tramadol [Ultram] 50 mg PO Q6H PRN PRN tab 04/29/19 Unknown Rx Trazodone [Desyrel] 100 mg PO HS PRN PRN tab 04/29/19 Unknown Rx - History of Present Illness -Gen Adult Nature of Presenting Problems: Pt is 73/F presenting to ED w/ weakness and jaundice. Pt has history of Cirrhosis with liver failure. Pt was admitted to ED for pneumonia and was released just 2 weeks ago. Pt sts that she started feeling weak yesterday afternoon but that it has gotten worse today, and there were times where she couldn't stand and "went down" to the floor, having to have help her up. Low grade fever noted as well at home. No nausea vomiting or diarrhea. Location of Pain/Injury: reports: none, generalized (generalized weakness) Pain Radiation: reports: no radiation Quality of Pain: reports: none Severity: reports: moderate Onset/Duration: reports: this morning Timing: reports: still present, getting worse Context/Activities at Onset: reports: none Modifying Factors: improves with: nothing Associated Symptoms: reports: weakness. denies: chest pain, nausea, shortness of breath, vomiting Similar Symptoms Previously?: Yes Recently seen or treated by another doctor?: Yes Review of Systems - Adult - REVIEW OF SYSTEMS - ADULT Constitutional: reports: fever (low grade). denies: chills Eyes: reports: no symptoms reported Ears, Nose, Mouth & Throat: reports: no symptoms reported Cardiovascular: reports: no symptoms reported Respiratory: reports: no symptoms reported. denies: cough, shortness of breath, wheezing Gastrointestinal: reports: no symptoms reported. denies: abdominal pain, nausea, vomiting Genitourinary: reports: no symptoms reported Musculoskeletal: reports: no symptoms reported Integumentary: reports: no symptoms reported Neurological: reports: no symptoms reported. denies: dizziness/vertigo, headache/migraines Psychiatric: reports: no symptoms reported Endocrine: reports: no symptoms reported Hematologic/Lymphatic: reports: no symptoms reported Allergic/Immunologic: reports: no symptoms reported All Other Systems: Reviewed and Negative Past History - Adult - PAST MEDICAL HISTORY-ADULT Review of Records: reports: Old Records Reviewed, Nursing Assessment Review, Medications Reviewed, Social history reviewed & non-contributory. Major Childhood Illnesses: reports: denies history Cardiovascular: reports: HTN Respiratory: reports: denies history Gastrointestinal: reports: denies history Obstetrical/Gynecological: reports: denies history Genitourinary: reports: kidney stones Musculoskeletal: reports: denies history Neurological: reports: denies history Endocrine/Immune: reports: Diabetes, thyroid disorder Other Conditions: reports: denies history - PRIOR SURGERIES/PROCEDURES Surgical/Procedure History: reports: other (cystoscopy) - PRIOR HOSPITALIZATIONS Prior Hospitalizations: reports: for other non-related - IMMUNIZATION STATUS Childhood Immunizations: See Nurse Assessment Flu Vaccine: See Nurse Assessment - FAMILY HISTORY Family History: reviewed, not pertinent - SOCIAL HISTORY Smoking: denies, non-smoker Substance Use: none/never Alcohol Use Frequency: never Living Situation: family Physical Exam-General - PHYSICAL EXAM-ADULT Initial Vital Signs Reviewed: Yes - CONSTITUTIONAL General Appearance: appears well, alert, no apparent distress, other (jaundice) - EYES Eyes: PERRL/EOMI, pink conjunctivae - HEAD, EARS, NOSE, MOUTH & THROAT HENMT: normocephalic/atraumatic, moist mucous membranes, normal ENT inspection, TMs normal, pharynx normal - NECK Neck: non-tender, full range of motion, supple, normal inspection - RESPIRATORY Respiratory: lungs clear, normal breath sounds - CARDIOVASCULAR Cardiovascular: normal peripheral pulses, regular rate, rhythm, no edema, no JVD - GASTROINTESTINAL (ABDOMEN) Abdominal Exam: normal bowel sounds, non tender, soft - LYMPHATIC Lymphatic: no adenopathy - MUSCULOSKELETAL Back Exam: normal inspection, no CVA tenderness, no vertebral tenderness Extremity: normal range of motion, non-tender, normal gait, normal inspection - SKIN Integumentary: normal color, warm/dry - NEUROLOGIC Neurologic: events and promotions assistant II-XII nml as tested, grossly normal, no motor/sensory deficits - PSYCHIATRIC Psych/Mental Status: normal mood/affect, normal thought content, normal thought process, oriented x 3 Progress - PLAN OF CARE/RESULTS Progress/Plan/Lab Results: Vital Signs - 8 hr 05/09/19 20:36 Temperature 99.4 F Pulse Rate 78 Respiratory Rate 19 Blood Pressure 131/91 O2 Sat by Pulse Oximetry 97 Orders Category Date Time Status IV Insertion ORDERED Care 05/09/19 20:42 Active cxr [CHEST-1 VIEW] [RAD] Stat Exams 05/09/19 20:44 Ordered AMMONIA [CHEM] Stat Lab 05/09/19 20:42 Uncollected CBC WITH DIFF [HEME] Stat Lab 05/09/19 20:42 Uncollected COMPREHENSIVE METABOLIC PANEL [CHEM] Stat Lab 05/09/19 20:42 Uncollected LIPASE [CHEM] Stat Lab 05/09/19 20:42 Uncollected PROTIME WITH INR [COAG] Stat Lab 05/09/19 20:42 Uncollected URINALYSIS W/POSS RFLX CULT [URINALYSIS] Stat Lab 05/09/19 20:42 Uncollected Result Diagrams: 05/09/19 21:54 05/09/19 21:54 - REASSESSMENT Reassessment #1 Status: improving (feeling better, mildly elevated ammonia and anemic but at baseline. Remainder of ED work up unremarkbale. Lactulose given and attempted to ambulate pt but she was unable to take more than 2-3 steps without maximal assistance. Will admit for further evaluation and treatment. Discussed case with Dr. Vieira, Hospitalist who will see and admit pt.) - EKG 1 Time of EKG reading by physician:: 21:02 EKG Read and Signed by:: Carolyn Stiles EKG Interpretation (*Must complete 3 of following elements*): Normal (Sinus Rhythm, rate 96, no acute st changes, normal axis and intervals) - XRAY 1 XRAY Study: Chest Impression: Abnormal (IMPRESSION: Bilateral small pleural effusions and suggestion of mild pulmonary venous congestion and interstitial edema.) Departure - Departure Date of Disposition Decision: 05/10/19 Time of Disposition Decision: 00:02 DIAGNOSIS: Weakness, Hepatic encephalopathy Disposition: ADMITTED INPATIENT 09 Certified Medical Emergency: Emergent Condition: Fair - Critical Care Note This patient required my direct & personal management of CC.: No Attestation - Physician/ CHRISTOPHE Attestation Patient care was provided by Advanced Practice Provider:: No The physician spent face to face time with patient:: Yes Advanced Practice Provider documentation review:: Supervising physician onsite and consulted in the evaluation and care of this patient. The physician did have a face to face encounter with the patient. This chart was documented by the indicated scribe, (Ladi Her, Lorri) and accurately reflects the services I performed and decisions made by , Carolyn Stiles MD, as attested by the provider's signature.
[2019-05-10] MEDS ORDERED: NS 1,000 ML IV SCH (01:07)
--- NOTE | 2019-05-10 03:37 | HISTORY AND PHYSICAL ---
PRIMARY CARE PHYSICIAN: Dr. Giovani Mariee. CHIEF COMPLAINT: Weakness. HISTORY OF PRESENTING ILLNESS: A 73-year-old female with a history of BANKS cirrhosis, diabetes mellitus type 2, who had presented to emergency department with 1-day history of having generalized weakness and not feeling well. The patient states that she is not able to ambulate, she felt weak, and nearly passed out. The patient states that she did not the eat or drink well today. She was seen in the ER, the ER physician tried to mobilize the patient, however, she felt weak and nearly passed out. Due to these presenting symptoms, it was thought that we will place her in for observation for further evaluation and management. At the time of my examination, patient denied any headache, fever, chills, chest pain, shortness of breath, hemoptysis, but complained of weakness and not feeling well. PAST MEDICAL HISTORY: Includes BANKS cirrhosis, diabetes mellitus type 2. PAST SURGICAL HISTORY: TIPS procedure, tonsillectomy, cervical fusion, cholecystectomy, hysterectomy, cataract surgery. ALLERGIES TO: Dopamine and shrimp. CURRENT MEDICATIONS: Include aspirin 81 mg p.o. daily, Lasix 80 mg p.o. q.48 hours, lactulose 10 mL p.o. b.i.d., levothyroxine 112 mcg p.o. daily, singular 10 mg p.o. daily, pantoprazole 40 mg p.o. daily, Xifaxan 550 mg p.o. daily, trazodone 100 mg p.o. at bedtime, insulin glargine 10 units subcutaneous at bedtime. SOCIAL HISTORY: No history of smoking, alcohol or illicit drug use. FAMILY HISTORY: Positive for coronary artery disease in mother. REVIEW OF SYSTEMS: Fourteen-point review of systems is as in HPI. Other systems negative. PHYSICAL EXAMINATION: GENERAL: Cooperative, friendly female. She is resting more comfortably now. VITAL SIGNS: Temperature 99.4 degrees, pulse 70, respiration 19, blood pressure 131/91. HEENT: Atraumatic, normocephalic. Extraocular movements intact. PERRLA. NECK: No masses. CHEST: Clear to auscultation. CARDIOVASCULAR: Regular rate and rhythm. ABDOMEN: Soft. Positive bowel sounds. EXTREMITIES: No edema. NEUROLOGIC: She is awake, alert, oriented x3. GENITOURINARY: No bladder disease. SKIN: Warm. LABORATORIES AND STUDIES: Sodium 137, potassium 3.9, chloride 101, CO2 is 29, BUN is 26, creatinine is 1.0. Glucose is 182. WBCs 9.79, hemoglobin 10.6, hematocrit 30.3, platelets 123,000. Chest x-ray shows mild pulmonary congestion. ASSESSMENT: This is a 73-year-old female with a history of non-alcoholic steatohepatitis cirrhosis, diabetes mellitus type 2, who had presented to emergency department with 1-day history of worsening weakness such that she could not ambulate. She was evaluated in the emergency department and she felt like she was going to pass out; subsequently, it was thought that we will place her in for observation for further evaluation and management. 1. Generalized weakness. 2. Near-syncope. 3. Non-alcoholic steatohepatitis cirrhosis. 4. Diabetes mellitus type 2. 5. Hypothyroidism. PLAN: 1. We will admit patient to medical floor with telemetry. 2. We will check orthostatic blood pressure and pulse. 3. Continue with gentle hydration. 4. We will restart her other home medications. 5. Monitor blood glucose and put patient on sliding scale insulin regimen. 6. We will put patient on DVT prophylaxis with SCDs. 7. We will continue to follow and reassess, make further recommendation based on patient's clinical course. cc: MD Giovani Hebert MD
[2019-05-10] MEDS ORDERED: HUMULIN R SUBQ SCH (07:00)
[2019-05-10] MEDS ORDERED: LASIX PO SCH ×3 (08:30→10:00)
[2019-05-10] MEDS: LACTULOSE PO SCH ×2 (10:26→21:50)
[2019-05-10] MEDS: ASPIRIN PO SCH (10:26)
[2019-05-10] MEDS: COREG PO SCH ×2 (10:26→21:49)
[2019-05-10] MEDS: VITAMIN B-12 PO SCH (10:26)
[2019-05-10] MEDS: LOVENOX SUBQ SCH ×2 (10:27→21:50)
[2019-05-10] MEDS: ULTRAM PO PRN ×2 (17:33→23:27)
[2019-05-10] MEDS ORDERED: LANTUS INSULIN SUBQ SCH (21:00)
[2019-05-10] MEDS: LANTUS INSULIN SUBQ SCH (21:50)
[2019-05-10] MEDS: XIFAXAN PO SCH (21:50)
[2019-05-10] MEDS: ZOFRAN IV PRN (23:32)
[2019-05-11] MEDS: SYNTHROID PO SCH (06:39)
[2019-05-11] MEDS: PROTONIX PO SCH (06:39)
[2019-05-11 07:20] LABS: BASO# 0.04 X1000 (0.0-0.2); BASO% 0.5 % (0.0-0.8); EOS% 2.4 % (0.0-10.0); HEMATOCRIT 29.8 % (37.0-47.0); LYMPH# 2.19 X1000 (1.2-3.4); LYMPH% 26.4 % (20.5-51.1); MCH 29.1 PG (27-31); MCHC 33.6 g/dL (33-37); MCV 86.6 FL (81-99); MONO# 0.96 X1000 (0.11-0.59); MONO% 11.6 % (1.7-9.3); MPV 9.7 FL (7.4-10.4); NEUT# 4.92 X1000 (1.4-6.5); NEUT% 59.1 % (42.2-75.2); PLT 138 X1000 (130-400); RBC 3.44 XMIL (4.2-5.4); RDW 15.8 % (11.5-14.5); WBC 8.31 X1000 (4.8-10.8)
[2019-05-11 07:41] LABS: CALCIUM 8.4 mg/dL (8.8-10.2); POTASSIUM 3.8 mmol/L (3.5-5.1)
[2019-05-11] MEDS: ULTRAM PO PRN ×3 (08:16→22:12)
[2019-05-11] MEDS: COREG PO SCH ×2 (09:26→20:33)
[2019-05-11] MEDS: LOVENOX SUBQ SCH (09:26)
[2019-05-11] MEDS: LACTULOSE PO SCH ×2 (09:26→20:32)
[2019-05-11] MEDS: VITAMIN B-12 PO SCH (09:26)
[2019-05-11] MEDS: ASPIRIN PO SCH (09:26)
--- NOTE | 2019-05-11 09:34 | Diag Imaging Result Doc PS360 ---
CHEST-2 VIEWS - 05/11/2019 INDICATION: Cough COMPARISON: 05/09/2019 FINDINGS: There are small bilateral pleural effusions left greater than right stable from prior. Stable cardiac megaly and pulmonary vascular congestion. There is some mild interstitial pulmonary edema. This has significantly improved since prior. IMPRESSION: Improvement in the interstitial pulmonary edema. Otherwise no change. Electronically signed by Nestor Paul 05/11/2019 9:32 AM
--- NOTE | 2019-05-11 09:37 | EKG Report ---
Test Performed on : 05/10/2019 3:35:52 PM Test Reason : a-fib? Blood Pressure : / mmHG Vent. Rate : 102 BPM Atrial Rate : 150 BPM P-R Int : 000 ms QRS Dur : 094 ms QT Int : 302 ms P-R-T Axes : 000 047 072 degrees QTc Int : 393 ms Atrial fibrillation. with rapid ventricular response. Septal infarct (cited on or before 28-FEB-2015) Abnormal ECG When compared with ECG of 23-APR-2019 12:29, Atrial fibrillation. has replaced Sinus rhythm. Nonspecific T wave abnormality, worse in Inferior leads Nonspecific T wave abnormality, worse in Lateral leads QT has shortened Confirmed by Dl SARGENT, Michael Marquis ([id number]) on 05/12/2019 10:00:45 AM
[2019-05-11] MEDS ORDERED: LASIX PO SCH (10:00)
--- NOTE | 2019-05-11 10:05 | EKG Report ---
Test Performed on : 05/11/2019 09:59:57 AM Test Reason : afib Blood Pressure : / mmHG Vent. Rate : 066 BPM Atrial Rate : 066 BPM P-R Int : 204 ms QRS Dur : 096 ms QT Int : 432 ms P-R-T Axes : 062 044 037 degrees QTc Int : 452 ms Normal sinus rhythm. Anterior infarct (cited on or before 28-FEB-2015) Abnormal ECG When compared with ECG of 10-MAY-2019 15:35, (Unconfirmed) Sinus rhythm. has replaced Atrial fibrillation. Vent. rate has decreased BY 36 BPM Nonspecific T wave abnormality, improved in Inferior leads Nonspecific T wave abnormality no longer evident in Lateral leads QT has lengthened Confirmed by Dl SARGENT, Michael Marquis ([id number]) on 05/12/2019 10:01:40 AM
--- NOTE | 2019-05-11 11:00 | CARDIOLOGY CONSULTATION ---
DATE: 05/11/2019 CHIEF COMPLAINT ON PRESENTATION: Weakness and presumed syncope. HISTORY OF PRESENT ILLNESS: Ms. Baum is a 73-year-old, white female with a history of non alcoholic steatohepatitis with recent TIPS procedure around 5 months ago in [place]. She presented on the with complaints of syncope. She was taking a bath that evening and when she got out of the tub she thinks she felt weak but next thing she knew she had fallen and was on the floor. She was extremely weak and could not get up. Ultimately after several minutes her came in and helped her up. She got continued to be lightheaded during that immediate time period. She reports that she did not eat and drink like her usual pattern that day because she just did not feel well. There was no nausea or vomiting. No diarrhea. She has had no recent medication changes that she is aware of. She has no bleeding issues. PAST MEDICAL HISTORY: 1. Nonalcoholic steatohepatitis with TIPS procedure in December 2018. 2. Hypertension. Apparently now not on any oral medications. 3. Diabetes. 4. Hypothyroidism. SOCIAL HISTORY: She is . No tobacco, no alcohol intake. FAMILY HISTORY: Significant for hypertension. REVIEW OF SYSTEMS: A 10 system review of systems is negative except for those things mentioned in HPI. PHYSICAL EXAMINATION: Patient is afebrile. Heart rate most recently at 66. She had a low of 49 during the hospitalization. Blood pressure 136/45.General: She is in no acute distress. HEENT: Oropharynx is moist. Normal dentition. Eye examination is pink conjunctivae. White sclerae. Neck: Examination shows no obvious thyromegaly or thyroid tenderness. Cardiovascular: She sounds to be in a regular rate and rhythm. There is a 2/6 systolic murmur best heard at the right upper sternal border. There is no increased work of breathing. She had no lower extremity edema. Chest: Clear to auscultation bilaterally. She has no increased work of breathing. Abdomen: Soft, nontender, nondistended. She has no obvious organomegaly. Skin: Warm and dry throughout without any rashes. Neurological: She is moving all extremities well. She has no lateralizing deficits. Psychiatric: She is alert, oriented, pleasant. She has normal mood and affect. PERTINENT DATA: Chest x-ray shows bilateral small pleural effusions with suggestion of mild pulmonary venous congestion. Her original EKG on the at 15:35 shows atrial fibrillation at this point. She has anterior septal Q-waves rate of 102 beats per minute in atrial fibrillation. Her subsequent EKG occurring on the at 9:59 shows anterior septal Q-waves reversion to sinus rhythm. Lab data shows white count 8.3, hematocrit 29.8, platelet count is 138,000. Her INR is 1.3, sodium 139, potassium 3.8, BUN 25, creatinine is 1. Her albumin level was 2.8. TSH 1.2. Ammonia level was 77 on presentation with a T bilirubin is 2.0. Her AST and ALT are normal at 29 at 21 respectively. ASSESSMENT: Ms Baum is a 73-year-old female who presented with syncope, new onset atrial fibrillation. PLAN: I believe her syncope was most likely related to a blood pressure drop related to poor oral intake, lack of taking her medications as well as likely being vasodilated secondary to heat exposure in the bathtub. We will check a limited echo. She had a recent echocardiogram in December that demonstrated an ejection fraction of 75%. No significant aortic valve gradient, mean was 10, valve area was greater than 2 cm squared, PA pressure was 55 to 60. Left pleural effusion noted on that study. We will check a 2 week outpatient JOSEFA. Her TSH was unremarkable on this study. She was initiated on a beta-phi. I will discuss with Dr. Myrick regarding her GI history and specifically if she has any history of varices, prior to initiation of anticoagulation. cc: MD Giovani Salazar MD MTDD
--- NOTE | 2019-05-11 14:49 | ECHO REPORT ---
ORDER DATE: 05/11/2019 PROCEDURE: Echocardiogram. INDICATION: Atrial fibrillation, syncope. FINDINGS: 1. The right atrium appears normal in size at 3.4 cm. 2. Mild tricuspid regurgitation. RV systolic pressure of 47. 3. Normal RV size and systolic function. 4. Mild pulmonic insufficiency. 5. Mild left atrial enlargement with a dimension of 4 cm. 6. No mitral valve prolapse. Mild mitral regurgitation. 7. Normal LV size, end-diastolic dimension of 4.4 cm. Normal wall thicknesses with a posterior and interventricular septal wall thickness of 1.1 cm each. Normal LV systolic function. Estimated EF of 67% with normal wall motion. 8. The aortic valve appears to open reasonably well on 2-dimensional images of the valve. The peak gradient across valve is 46 with a mean of 25. The valve area was calculated out at 1.0 cm2. On visual evaluation of the valve, it does not appear to be a particularly stenotic valve. There is a relatively narrow left ventricular outflow tract. I suspect this is more of a left ventricular outflow tract gradient than an aortic valve gradient itself. There is mild aortic insufficiency. 9. The aorta appears normal in visualized segments. 10. There is a pleural effusion present as well as a very trace pericardial effusion. cc: MD Laurie Salazar PA Scott A. Matthews, MD
[2019-05-11] MEDS: XIFAXAN PO SCH (20:33)
--- NOTE | 2019-05-11 20:52 | PROGRESS NOTE ---
DATE: 05/11/2019 SUBJECTIVE: The patient's chart was reviewed. In summary, patient was admitted on 05/10/2019 with profound weakness in the setting of a near syncopal episode. Additional diagnoses included nonalcoholic cirrhosis, diabetes, and hypothyroidism. The patient was placed on telemetry. Orthostatic blood pressures were performed. She was started on gentle hydration. Over the course of the first 24 hours, patient was noted to have a paroxysmal event of atrial fibrillation. The patient was started on Coreg therapy. She has converted back to a normal sinus rhythm. This morning, upon my arrival, the patient stated she continued to have considerable fatigue and weakness, although this was improved from admission. Physical therapy was consulted. Cardiology was consulted for further evaluation and management of atrial fibrillation. Echocardiogram was performed revealing a normal ejection fraction with normal wall motion. Mild valvular heart disease with a left ventricular outflow tract outflow tract gradient was noted. Pleural effusion and pericardial effusion was identified. This evening, patient states she continues to demonstrate slow improvement. There has been no further evidence of atrial fibrillation. Her p.o. intake remains marginal. She denies fevers, chills, nausea, vomiting, or shortness of breath. She does have a persistent cough. OBJECTIVE: T-max 98.3 degrees, heart rate 64 to 111, respirations 14 to 18, blood pressure 118 to 136/38 to 46.General: Chronically ill-appearing, no acute distress. Cardiovascular: Regular rate and rhythm. No significant murmurs, rubs, or gallops. Pulmonary: Clear to auscultation bilaterally. Abdomen: Soft, nontender, nondistended. Positive bowel sounds. Extremities: Moves all extremities well. No significant clubbing, cyanosis, or edema. Dermatologic: Evaluation reveals no evidence of rash. LABORATORY DATA: White blood cell count 8.31, hemoglobin 10.0, hematocrit 29.8, platelet count 238,000. Sodium 139, potassium 3.8, chloride 103, bicarb 29, BUN 25, creatinine 1.0, glucose 112, calcium 8.4, TSH 1.26. ASSESSMENT AND PLAN: 1. Weakness with a near syncopal episode - Differential diagnosis is broad. In the setting of new onset atrial fibrillation, arrhythmia has moved higher on the differential. Also of concern is volume depletion in the setting of chronic diuresis. The patient has been treated with gentle hydration. Her Lasix has been held. Cardiology has been consulted as above. At present time, symptoms are improving. We will follow this as an inpatient and consider an event monitor as an outpatient. 2. Nonalcoholic cirrhosis - The patient is currently treated being treated with lactulose and Xifaxan therapy. As above, volume is treated with diuresis. We will continue to hold diuresis for now. We will plan to resume this once appropriate. 3. Persistent cough - Chest x-ray today suggests improvement without significant fluid. Historically, patient's cough has been fluid associated. We will hold diuresis today. We will consider resuming therapy in the morning. For now, we will continue to encourage incentive spirometry. 4. New onset atrial fibrillation - I appreciate Dr. Tipton's consultation. We will continue carvedilol. Anticoagulation was initiated with Lovenox therapy. We will hold further anticoagulation until confirmation that no esophageal varices are present. At this point, until this is known, the risks outweighs the benefits of therapy. 5. Hypertension - This diagnosis this is historical. She currently requires no medical intervention. 6. Type 2 diabetes - We will continue the patient on sliding scale insulin. 7. Disposition - At this point, patient continues to require fdc care in a hospital setting. We will plan discharge home once appropriate. cc: Giovani Mariee MD
[2019-05-11] MEDS ORDERED: ELIQUIS PO SCH (21:00)
[2019-05-11] MEDS: LANTUS INSULIN SUBQ SCH (21:23)
[2019-05-11] MEDS: DESYREL PO PRN (22:12)
[2019-05-12] MEDS: PROTONIX PO SCH (06:27)
[2019-05-12] MEDS: SYNTHROID PO SCH (06:27)
[2019-05-12 06:42] LABS: BASO# 0.03 X1000 (0.0-0.2); BASO% 0.4 % (0.0-0.8); EOS# 0.46 X1000 (0.0-0.7); EOS% 6.1 % (0.0-10.0); HEMATOCRIT 31.3 % (37.0-47.0); HEMOGLOBIN 10.8 g/dL (12.0-16.0); LYMPH# 1.51 X1000 (1.2-3.4); LYMPH% 20.2 % (20.5-51.1); MCH 29.1 PG (27-31); MCHC 34.5 g/dL (33-37); MCV 84.4 FL (81-99); MONO# 0.81 X1000 (0.11-0.59); MONO% 10.8 % (1.7-9.3); MPV 9.2 FL (7.4-10.4); NEUT# 4.67 X1000 (1.4-6.5); NEUT% 62.5 % (42.2-75.2); PLT 142 X1000 (130-400); RBC 3.71 XMIL (4.2-5.4); RDW 15.5 % (11.5-14.5); WBC 7.48 X1000 (4.8-10.8)
--- NOTE | 2019-05-12 07:11 | EKG Report ---
Test Performed on : 05/12/2019 06:42:59 AM Test Reason : New onset AFIB RVR Blood Pressure : / mmHG Vent. Rate : 127 BPM Atrial Rate : 115 BPM P-R Int : 000 ms QRS Dur : 096 ms QT Int : 332 ms P-R-T Axes : 000 086 009 degrees QTc Int : 482 ms Atrial fibrillation. with rapid ventricular response. Septal infarct (cited on or before 28-FEB-2015) Abnormal ECG When compared with ECG of 11-MAY-2019 09:59, (Unconfirmed) Atrial fibrillation. has replaced Sinus rhythm. Vent. rate has increased BY [address] now depressed in Inferior leads Confirmed by Dl SARGENT, Michael Marquis ([id number]) on 05/12/2019 10:02:02 AM
[2019-05-12 07:18] LABS: AGAP 9; BUN 23 mg/dL (8-22); CALCIUM 8.3 mg/dL (8.8-10.2); CHLORIDE 102 mmol/L (98-107); CK TOTAL 126 U/L (24-173); COSMO 277; CREATININE 0.9 mg/dL (0.5-0.9); ESTIMATED GFR > 60; GLUCOSE 131 mg/dL (70-104); MAGNESIUM 1.9 mg/dL (1.5-2.7); POTASSIUM 3.9 mmol/L (3.5-5.1); SODIUM 136 mmol/L (136-145); TCO2 25 mmol/L (25-35)
[2019-05-12] MEDS: COREG PO SCH ×2 (07:42→08:44)
[2019-05-12] MEDS: ZOFRAN IV PRN (08:45)
[2019-05-12] MEDS: LACTULOSE PO SCH ×2 (09:35→20:32)
[2019-05-12] MEDS: VITAMIN B-12 PO SCH (09:35)
[2019-05-12] MEDS: ASPIRIN PO SCH (09:35)
[2019-05-12] MEDS: ULTRAM PO PRN ×2 (09:39→21:51)
[2019-05-12] MEDS ORDERED: CARDIZEM 125/NS 125 MG/125 ML IVPB IV SCH (11:00)
[2019-05-12] MEDS: BETAPACE PO SCH ×2 (11:17→20:32)
--- NOTE | 2019-05-12 15:04 | CARDIOLOGY PROGRESS NOTE ---
DATE: 05/12/2019 SUBJECTIVE: Ms. Baum feels a little bit weak today. She has converted back into atrial fibrillation. PHYSICAL EXAMINATION: Afebrile. Heart rate in the 120s to 130s. Blood pressure 113/77. General: She is in no acute distress. Cardiovascular: She is in an irregularly irregular rhythm. She has no murmurs. She has no S3. Chest Examination: Clear bilaterally. She has no increased work of breathing. Abdomen: Soft, nontender, nondistended. She has no obvious organomegaly. PERTINENT DATA: Sodium 136, potassium is 3.9, BUN 23, creatinine 0.9. White count 7.4, hematocrit 31. ASSESSMENT: Ms. Baum is a 73-year-old female with a history of nonalcoholic steatohepatitis, status post transjugular intrahepatic portosystemic shunt. She has had new onset atrial fibrillation this hospitalization. PLAN: She is back in atrial fibrillation. She is being transferred to the [facility]. We will place her on a Cardizem infusion. We will initiate sotalol at a dose of 80 mg b.i.d. Further recommendations to follow. cc: MD Giovani Salazar MD
--- NOTE | 2019-05-12 15:33 | EKG Report ---
Test Performed on : 05/12/2019 1:51:05 PM Test Reason : rhythm change Blood Pressure : / mmHG Vent. Rate : 048 BPM Atrial Rate : 048 BPM P-R Int : 224 ms QRS Dur : 094 ms QT Int : 512 ms P-R-T Axes : 050 044 055 degrees QTc Int : 457 ms Sinus bradycardia. with 1st degree AV block. Anteroseptal infarct (cited on or before 28-FEB-2015) Abnormal ECG When compared with ECG of 12-MAY-2019 06:42, Sinus rhythm. has replaced Atrial fibrillation. Vent. rate has decreased BY [address] no longer depressed in Inferior leads Confirmed by Dl SARGENT, Michael Marquis ([id number]) on 05/13/2019 9:45:03 AM
--- NOTE | 2019-05-12 20:00 | PROGRESS NOTE ---
DATE: 05/12/2019 SUBJECTIVE: Upon my arrival this morning, the patient was noted to be in atrial fibrillation with a rapid ventricular response. The patient was provided a dose of carvedilol. Dr. Tipton was again consulted. The patient was transported to the CICU. While there, the patient was started on sotalol and a diltiazem drip. Soon after initiating the diltiazem drip, the patient converted back to a sinus generated rhythm, but with bradycardia. Throughout the day, patient has demonstrated improvement. Her rate has decreased. P.o. intake has been reasonable. This evening, the patient is resting in bed. She denies fevers, chills, nausea, vomiting, shortness of breath, or chest discomfort. OBJECTIVE: Vital signs: T-max 98.2, heart rate 51 to 132, respirations 14 to 18, blood pressure 105 to 132 over 42 to 77. General: Chronically ill appearing, no acute distress. Cardiovascular: Regular rhythm, bradycardic. No significant murmurs, rubs, or gallops. Pulmonary: Clear to auscultation bilaterally. Abdomen: Soft, nontender, nondistended. Positive bowel sounds. Extremities: Moves all extremities well. No significant clubbing, cyanosis, or edema. Dermatologic: Evaluation reveals no evidence of rash. LABORATORY DATA: White blood cell count 7.48, hemoglobin 10.8, hematocrit 31.3, platelet count a 142,000. Sodium 136, potassium 3.9, chloride 102, bicarb 25, BUN 23, creatinine 0.9, glucose 131, calcium 8.3, magnesium 1.9. CK total 124. Troponin less than 0.01. Serum TSH 1.53. ASSESSMENT AND PLAN: 1. Weakness with a near syncopal episode - At this point, with a new onset paroxysmal atrial fibrillation, concern is raised for this being the etiology. We will also remain aware that a volume depletion also may be playing a role. We will address atrial fibrillation as described below. We will monitor patient's clinical course and follow telemetry while hospitalized. 2. Atrial fibrillation with rapid ventricular response - As above, patient has converted back to a sinus-generated rhythm. I appreciate Dr. Tipton's consultation. We will continue sotalol therapy. 3. Anticoagulation - At this point, in the setting of nonalcoholic cirrhosis, I am hesitant to fully anticoagulate. We will continue low-dose Lovenox. We will plan an EGD once able to confirm no evidence of varices are present. 4. Nonalcoholic cirrhosis - We will continue patient on lactulose and Xifaxan therapy. We will continue to hold Lasix therapy, but will resume once patient's atrial fibrillation has been controlled. 5. Persistent cough - Historically, this has occurred with excess volume. As above, we will resume Lasix once able. We will encourage incentive spirometry and aspiration precautions. 6. Type 2 diabetes - We will continue the patient on Lantus therapy. We will follow up with pattern blood sugars. 7. Disposition - At this point, patient continues to require long term care in a hospital setting. We will plan discharge home once appropriate. cc: Giovani Mariee MD
[2019-05-12] MEDS: XIFAXAN PO SCH (20:32)
[2019-05-12] MEDS: LANTUS INSULIN SUBQ SCH (20:33)
[2019-05-12] MEDS: DESYREL PO PRN (21:51)
[2019-05-13] MEDS: SYNTHROID PO SCH (06:00)
[2019-05-13] MEDS: PROTONIX PO SCH (06:00)
[2019-05-13] MEDS: VITAMIN B-12 PO SCH (08:35)
[2019-05-13] MEDS: ASPIRIN PO SCH (08:35)
[2019-05-13] MEDS: BETAPACE PO SCH ×2 (08:35→20:29)
[2019-05-13] MEDS: LACTULOSE PO SCH ×2 (08:35→20:29)
[2019-05-13] MEDS: LOVENOX SUBQ SCH (08:36)
--- NOTE | 2019-05-13 08:55 | CARDIOLOGY PROGRESS NOTE ---
DATE: 05/13/2019 SUBJECTIVE: She feels a little bit groggy this morning, but otherwise no complaints. PHYSICAL EXAMINATION: Vital Signs: Afebrile, heart rate 52, blood pressure is 130/42. General: She is in no acute distress. Cardiovascular: She sounds to be in a regular rate and rhythm. Telemetry currently shows sinus. Extremities: She has no lower extremity edema. Chest: Clear bilaterally. PERTINENT DATA: Her EKG shows sinus jailene at 48 beats per minute, first-degree AV block, QTc of 457. Her laboratory data demonstrates no new chemistry data. ASSESSMENT: Ms. Baum is a 73-year-old female who presents with atrial fibrillation, currently on sotalol. PLAN: She is in sinus bradycardia. Seems to be tolerating it. Her rate is a little bit slow, so will back off the sotalol to 40 mg b.i.d. Will continue her on current parameters. She will need to stay at least one more night for sotalol monitoring. cc: MD Giovani Salazar MD MTDD
[2019-05-13] MEDS: LASIX PO SCH (09:28)
[2019-05-13] MEDS: XIFAXAN PO SCH (20:29)
[2019-05-13] MEDS: ULTRAM PO PRN (20:30)
[2019-05-13] MEDS: LANTUS INSULIN SUBQ SCH (20:30)
[2019-05-13] MEDS: DESYREL PO PRN (21:51)
--- NOTE | 2019-05-13 23:04 | PROGRESS NOTE ---
DATE: 05/13/2019 SUBJECTIVE: Upon my arrival this morning, the patient was resting in bed. She continued to complain of cough and weakness but overall noted some improvement. Throughout the day, she was able to ambulate in her room, although continued to have some unsteadiness. Her p.o. intake has been marginal. Thus far, she has tolerated the change in medication reasonably well. She denies fevers, chills, nausea, vomiting, or chest discomfort. OBJECTIVE: Vital signs: T-max 98.1 degrees, heart rate 52 to 60, respirations 14 to 18, blood pressure 110 to 135 over 32 to 50. General: Chronically ill appearing, no acute distress. Cardiovascular: Regular rhythm. Bradycardic. No significant murmurs, rubs, or gallops. Pulmonary: Clear to auscultation bilaterally. Abdomen: Soft, nontender, nondistended. Positive bowel sounds. Extremities: Moves all extremities well. No significant clubbing, cyanosis, or edema. Dermatologic: Evaluation reveals no evidence of rash. LABORATORY DATA: None. ASSESSMENT AND PLAN: 1. Weakness with a near-syncopal episode - At this point, I suspect this may have been secondary to paroxysmal atrial fibrillation. With control of her rhythm, she has had no further episodes of near syncope. Her weakness is slowly improving with physical therapy. 2. Atrial fibrillation with rapid ventricular response - The patient is in a sinus-generated rhythm. I appreciate Dr. Tipton's consultation. Medication adjustments are per his discretion. We will continue to follow. 3. Anticoagulation - At this point, in the setting of nonalcoholic cirrhosis, I am hesitant to initiate full anticoagulation. We will continue low-dose Lovenox. As an outpatient, we will plan an EGD to rule out esophageal varices. If there were no varices present, we will initiate full-dose anticoagulation. We will remain aware, and the patient is a very high fall risk. 4. Nonalcoholic cirrhosis - We will continue lactulose and Xifaxan therapy. Lasix was resumed this morning. We will follow her volume status. 5. Persistent cough - I suspect this may be volume as her symptoms are similar to her previous symptoms with volume excess. Lasix therapy was initiated. We will continue aspiration precautions and incentive spirometry. 6. Type 2 diabetes - We will continue the patient on her home dose of Lantus therapy. 7. Disposition - At this point, the patient continues to require [facility] care in a hospital setting. We will plan discharge home once appropriate. cc: Giovani Mariee MD
[2019-05-14] MEDS: ZOFRAN IV PRN ×2 (00:34→20:22)
[2019-05-14] MEDS: PROTONIX PO SCH (06:16)
[2019-05-14] MEDS: SYNTHROID PO SCH (06:16)
[2019-05-14] MEDS: BETAPACE PO SCH ×2 (08:01→20:21)
[2019-05-14] MEDS: LACTULOSE PO SCH ×2 (08:01→20:22)
[2019-05-14] MEDS: ASPIRIN PO SCH (08:01)
[2019-05-14] MEDS: LASIX PO SCH (08:02)
[2019-05-14] MEDS: VITAMIN B-12 PO SCH (08:02)
[2019-05-14] MEDS: LOVENOX SUBQ SCH (08:02)
[2019-05-14] MEDS: ULTRAM PO PRN ×2 (08:09→14:06)
--- NOTE | 2019-05-14 11:39 | EKG Report ---
Test Performed on : 05/14/2019 10:01:55 AM Test Reason : afib Blood Pressure : / mmHG Vent. Rate : 054 BPM Atrial Rate : 054 BPM P-R Int : 204 ms QRS Dur : 094 ms QT Int : 518 ms P-R-T Axes : 049 047 049 degrees QTc Int : 491 ms Sinus bradycardia. Anteroseptal infarct (cited on or before 28-FEB-2015) Abnormal ECG When compared with ECG of 12-MAY-2019 13:51, No significant change was found Confirmed by Dl SARGENT, Michael Marquis ([id number]) on 05/14/2019 4:19:56 PM
--- NOTE | 2019-05-14 15:39 | CARDIOLOGY PROGRESS NOTE ---
DATE: 05/14/2019 SUBJECTIVE: Ms. Baum reports she feels subjectively better compared to admission. She is not having any palpitations. PHYSICAL EXAMINATION: She is afebrile, heart rate 52, her blood pressure is 148/45. General: She is in no acute distress. Cardiovascular: She sounds to be in a regular rate and rhythm. Sinus rhythm per telemetry. She has no lower extremity edema. Chest Examination: Clear bilaterally. She has no increased work of breathing. PERTINENT DATA: The patient had an EKG today with a QTc interval of 491. Her pretreatment QTc was 482. ASSESSMENT: Ms. Baum is a 73-year-old female with nonalcoholic steatohepatitis, status post transjugular intrahepatic portosystemic shunt procedure. She has had a couple of episodes of atrial fibrillation. PLAN: For now, I would continue her on the sotalol. She seems to be rate controlled. We are withholding full dose anticoagulation given her liver issues. She may need an EGD prior to any sort of anticoagulants being used as an outpatient to evaluate for possible varices. cc: MD Giovani Salazar MD
[2019-05-14] MEDS ORDERED: TYLENOL PO PRN (18:53)
[2019-05-14] MEDS: LANTUS INSULIN SUBQ SCH (20:22)
[2019-05-14] MEDS: XIFAXAN PO SCH (20:22)
--- NOTE | 2019-05-14 21:05 | PROGRESS NOTE ---
DATE: 05/14/2019 SUBJECTIVE: Upon my arrival this morning, patient was already up in a chair. Patient states she had a reasonably restful night. She did, however, complain of some lower extremity pain. This ultimately was improved with time and with tramadol therapy. Throughout the day, patient states she has felt improved. She has remained in a sinus-generated rhythm. She denies chest pains or shortness of breath. She continues to work with physical therapy. She remains unstable, but improving. This evening, patient states she has continued to improve. She anticipates she will be prepared for discharge in the morning. She denies fevers, chills, nausea, vomiting, shortness of breath, or chest discomfort. OBJECTIVE: Vital Signs: T-max 98.3 degrees, heart rate 52 to 59, respirations 15 to 20, blood pressure 110 to 150 over 32 to 44. General: Chronically ill appearing; no acute distress. Cardiovascular: Regular rhythm, bradycardic. No significant murmurs, rubs, or gallops. Pulmonary: Clear to auscultation bilaterally. Abdomen: Soft, nontender, and nondistended. Positive bowel sounds. Extremities: Moves all extremities well. No significant clubbing, cyanosis, or edema. Dermatologic: Evaluation reveals no evidence of rash. LABORATORY DATA: None. ASSESSMENT AND PLAN: 1. Weakness, with a near syncopal episode: This likely was secondary to an episode of paroxysmal atrial fibrillation. With rhythm control using sotalol, she has had no further episodes. We will continue physical therapy as her energy level is slowly improving. 2. Atrial fibrillation with rapid ventricular response: As above, patient is treated with sotalol therapy. She has remained in a sinus-generated rhythm over the last several days. We will continue her current regimen. 3. Anticoagulation: Unfortunately, in the setting of nonalcoholic cirrhosis, I am hesitant to fully anticoagulate without having an esophagogastroduodenoscopy performed prior. For now, the risk of anticoagulation outweighs the benefits. We will plan an esophagogastroduodenoscopy as an outpatient, and determine if resuming full anticoagulation is appropriate. We will remain aware that patient is a high fall risk. 4. Nonalcoholic cirrhosis: We will continue patient on lactulose and Xifaxan therapy. 5. Volume overload: Lasix therapy was resumed yesterday. Excess volume is secondary to underlying cirrhosis. We will follow this closely as well. 6. Persistent cough: I suspect this may be secondary to mild volume overload. We will continue Lasix therapy. 7. Type 2 diabetes: We will continue patient on home dose Lantus. 8. Disposition: At this point, [facility]. We will plan discharge home once appropriate. cc: Giovani Mariee MD
[2019-05-14] MEDS: OXY IR PO PRN (21:42)
[2019-05-15] MEDS: OXY IR PO PRN ×2 (00:53→21:51)
[2019-05-15] MEDS: DESYREL PO PRN ×2 (00:54→20:51)
[2019-05-15] MEDS: ZOFRAN IV PRN ×2 (04:03→21:51)
[2019-05-15 06:05] LABS: CALCIUM 8.2 mg/dL (8.8-10.2); POTASSIUM 3.6 mmol/L (3.5-5.1)
[2019-05-15] MEDS: SYNTHROID PO SCH (06:18)
[2019-05-15] MEDS: PROTONIX PO SCH (06:18)
--- NOTE | 2019-05-15 07:43 | EKG Report ---
Test Performed on : 05/15/2019 06:43:10 AM Test Reason : afib Blood Pressure : / mmHG Vent. Rate : 078 BPM Atrial Rate : 078 BPM P-R Int : 250 ms QRS Dur : 102 ms QT Int : 444 ms P-R-T Axes : 048 054 049 degrees QTc Int : 506 ms Sinus rhythm. with 1st degree AV block. Septal infarct (cited on or before 28-FEB-2015) Abnormal ECG When compared with ECG of 14-MAY-2019 10:01, ND interval has increased Questionable change in initial forces of Anterior leads Confirmed by Dl SARGENT, Michael Marquis ([id number]) on 05/19/2019 7:26:15 PM
--- NOTE | 2019-05-15 08:09 | Diag Imaging Result Doc PS360 ---
EXAM: CHEST-2 VIEWS HISTORY: cough TECHNIQUE: Chest two views COMPARISON: 05/11/2019 FINDINGS: The lungs are well expanded except for basilar atelectasis. The atelectasis is actually less pronounced in the left base.. The heart is mildly enlarged. The vessels are not distended. There are small pleural effusions similar to the prior exam. IMPRESSION: Mild cardiomegaly with small pleural effusions. Mild improvement in the left base. Electronically signed by Ham Soto 05/15/2019 8:06 AM
[2019-05-15] MEDS: LOVENOX SUBQ SCH (08:34)
[2019-05-15] MEDS: LACTULOSE PO SCH ×2 (08:34→20:52)
[2019-05-15] MEDS: ASPIRIN PO SCH (08:35)
[2019-05-15] MEDS: LASIX PO SCH (08:35)
[2019-05-15] MEDS: BETAPACE PO SCH (08:36)
[2019-05-15] MEDS: VITAMIN B-12 PO SCH (08:36)
--- NOTE | 2019-05-15 17:43 | CARDIOLOGY PROGRESS NOTE ---
DATE: 05/15/2019 SUBJECTIVE: She reports she is doing quite well today. She has no complaints. PHYSICAL EXAMINATION: Vital Signs: She is afebrile. Heart rate 55. Blood pressure 138/50. General: She is in no acute distress. Cardiovascular: She is in a regular rate and rhythm. She is in sinus. She has no murmurs. She has no S3. She has no lower extremity edema. Chest: Clear bilaterally. No increased work of breathing. Abdomen: Soft, nontender, nondistended. PERTINENT DATA: Lab-calixto: Sodium is 139, potassium 3.6, BUN 22, creatinine is 1. Ammonia level today is 113. ASSESSMENT: Ms. Baum is a 73-year-old female who has nonalcoholic steatohepatitis. Presented to the hospital with weakness. Found to have an episode of atrial fibrillation. PLAN: She is in sinus. Her EKG today shows a significant QT prolongation from her baseline her QTc is up to 506. I have stopped the sotalol. I do not think we really have a very good option antiarrhythmic-calixto in this patient given her liver issues along with her QT interval issues. Ultimately, I would recommend possibly tomorrow reinitiating a beta-phi and then we could consider if she has repetitive episodes of atrial fibrillation, getting EP involved for their assistance with potential antiarrhythmics versus an AV node ablation with subsequent pacemaker implantation. Presently, we will continue with current course. cc: MD Giovani Salazar MD
--- NOTE | 2019-05-15 19:28 | PROGRESS NOTE ---
DATE: 05/15/2019 SUBJECTIVE: Upon my arrival this morning, the patient states she had a restful evening. The patient was provided a dose of oxycodone secondary to lower extremity pain. With this, the patient slept much more comfortably. Throughout the day today, the patient worked with physical therapy. Energy level continues to slowly improve. Upon evaluation by Cardiology this morning, the patient's Q-T interval had increased. Sotalol was discontinued. This evening, patient states she continues to demonstrate slow improvement. She denies fevers, chills, nausea, vomiting, shortness of breath or chest discomfort. OBJECTIVE: T-max 98.3 degrees, heart rate 55 to 75. Respirations 13 to 18. Blood pressure 127 to 150 over 41 to 50.General: Chronically ill appearing, no acute distress. Cardiovascular: Irregularly irregular. Regular rate. No significant murmurs, rubs or gallops. Pulmonary: Clear to auscultation bilaterally. Abdomen soft, nontender, nondistended. Positive bowel sounds. Extremities: Moves all extremities well. No significant clubbing, cyanosis or edema. Dermatologic evaluation reveals no evidence of rash. LABORATORY DATA: Sodium 139, potassium 3.6, chloride 102, bicarbonate 28, BUN 22, creatinine 1.0, glucose 122, calcium 8.2. Ammonia level 113. ASSESSMENT AND PLAN: 1. Weakness with near-syncopal episode: This likely was secondary to an episode of paroxysmal atrial fibrillation. The patient's atrial fibrillation will be addressed as below. Weakness is slowly improving. She has had no further near-syncopal episodes while hospitalized. 2. Atrial fibrillation with rapid ventricular response: Unfortunately, the patient did not tolerate sotalol secondary to an increasing Q-T interval. Sotalol has been discontinued. Per Dr. Tipton's recommendations, we will plan to initiate beta-phi tomorrow. For now, the patient will require inpatient treatment with initiation of alternative medical intervention. 3. Anticoagulation: In the setting of nonalcoholic cirrhosis and extreme fall risk, she is not a candidate for full anticoagulation at this point. Once able, we will plan an esophagogastroduodenoscopy to rule out underlying varices. Thereafter we will reconsider whether anticoagulation is appropriate. 4. Nonalcoholic cirrhosis: The patient's ammonia level has increased. Mentation remains intact. At this point we will continue her current regimen. We will plan to recheck ammonia level in the near future. 5. Persistent cough: This likely is secondary to volume. We will continue Lasix therapy. We will encourage aspiration precautions and incentive spirometry. 6. Type 2 diabetes: We will continue the patient on home-dose Lantus. 7. Disposition: At this point, with discontinuing sotalol therapy the patient will require remaining an inpatient. We will plan discharge home once appropriate. cc: Giovani Mariee MD
[2019-05-15] MEDS: XIFAXAN PO SCH (20:51)
[2019-05-15] MEDS: LANTUS INSULIN SUBQ SCH (20:52)
[2019-05-15] MEDS: ULTRAM PO PRN (23:06)
[2019-05-16] MEDS: OXY IR PO PRN ×3 (02:51→21:34)
[2019-05-16] MEDS ORDERED: CARDIZEM 125 MG in NS 100 ML IV SCH (03:00)
[2019-05-16] MEDS: SYNTHROID PO SCH (06:04)
[2019-05-16] MEDS: PROTONIX PO SCH (06:04)
[2019-05-16] MEDS: LACTULOSE PO SCH ×2 (09:25→21:33)
[2019-05-16] MEDS: LOVENOX SUBQ SCH (09:25)
[2019-05-16] MEDS: ASPIRIN PO SCH (09:26)
[2019-05-16] MEDS: LASIX PO SCH (09:26)
[2019-05-16] MEDS: VITAMIN B-12 PO SCH (09:26)
--- NOTE | 2019-05-16 10:55 | PROGRESS NOTE ---
DATE: 05/16/2019 SUBJECTIVE: Unfortunately, overnight, patient had a quite uneventful evening. The patient states her lower extremity pain became severe. It required 2 doses of oxycodone to improve. Additionally, patient converted to atrial fibrillation with a rapid ventricular response. On-call physician was contacted and diltiazem drip was ordered. Upon ordering, patient converted spontaneously. She has remained in a sinus-generated rhythm since that time. This morning, patient states, other than feeling fatigued from not sleeping well, she is doing reasonably well. She denies fevers, chills, nausea, vomiting, shortness of breath, palpitations, or chest discomfort. OBJECTIVE: T-max 98.9 degrees, heart rate 56 to 124, respirations 12 to 18, blood pressure 121 to 174 over 39 to 80.General: Chronically ill appearing, no acute distress. Cardiovascular: Bradycardic regular rhythm. No significant murmurs, rubs, or gallops. Pulmonary: Clear to auscultation bilaterally. Abdomen: Soft, nontender. Nondistended. Positive bowel sounds. Extremities: Moves all extremities well. No significant clubbing, cyanosis, or edema. Dermatologic: Evaluation reveals no evidence of rash. LABORATORY DATA: None. ASSESSMENT AND PLAN: 1. Weakness with near syncopal episode-at this point, this likely is secondary to atrial fibrillation with rapid ventricular response. We will treat as described below. We will remain aware that volume also may be playing a role. 2. Atrial fibrillation with rapid ventricular response-unfortunately, patient has failed sotalol secondary to a prolonged QT interval. With discontinuing therapy, patient again developed paroxysmal atrial fibrillation with rapid ventricular response. I have discussed the case with Dr. Tipton. Unfortunately, several anti rhythmic medications are contraindicated in the setting of underlying cirrhosis. We will consider electrophysiology consultation. At this point, we will defer management to Dr. Tipton. 3. Anticoagulation-in the setting of nonalcoholic cirrhosis and extreme fall risk, she is not a good candidate for full anticoagulation. The risk of anticoagulation at this point, outweighs the benefits. As an outpatient, we will consider an esophagogastroduodenoscopy to rule out underlying varices. At that point, we will consider whether initiating therapy is appropriate. 4. Nonalcoholic cirrhosis-patient's ammonia level yesterday was elevated despite Xifaxan and lactulose therapy. Patient's mentation remains sound. We will recheck in the morning. For now, we will continue her current regimen. However we will adjust the timing of her Xifaxan as described below. 5. Persistent cough-the patient has achieved improvement with re-initiation of Lasix therapy. We will encourage aspiration precautions and incentive spirometry. 6. Extreme lower extremity pain-this primarily occurs in the evening. This is refractory to both tramadol and oxycodone therapy. When reviewing medications, the most likely sources are Xifaxan and/or of Lasix with dehydrated state. We will change patient's Xifaxan to noon to see if this makes a difference. We will continue to monitor her volume status closely. For now, we will continue symptomatic management. 7. Type 2 diabetes-we will continue home dose Lantus. Blood sugars are reasonably controlled. DISPOSITION: At this point, patient continues to require [facility] care in a hospital setting. We will plan discharge home once appropriate. cc: Giovani Mariee MD
[2019-05-16] MEDS: XIFAXAN PO SCH (11:53)
--- NOTE | 2019-05-16 18:04 | CARDIOLOGY PROGRESS NOTE ---
DATE: 05/16/2019 SUBJECTIVE: Ms. Baum is doing well today. She has no complaints. She had an episode of atrial fibrillation again last night. Heart rates went up into the 120s. OBJECTIVE: Generally she is in no acute distress. Cardiovascularly, she sounds to be in a regular rate and rhythm. Currently she is in sinus. She has no lower extremity edema. Her chest exam sounds clear bilaterally. She has no increased work of breathing. Her abdomen is soft and nontender. PERTINENT DATA: Telemetry reviewed. She has no new laboratory data. ASSESSMENT: Ms. Baum is a 73-year-old female who came in with diffuse weakness, who had episodes of atrial fibrillation during this hospitalization. PLAN: We have discussed the case with the electrophysiology service over in [place]. She has failed sotalol secondary to prolongation of her QTc. She presents somewhat of a challenge based on her liver dysfunction. We will try to initiate flecainide at a dose of 25 mg b.i.d. initially. Currently she is in sinus bradycardia in the 50s to 60s. We will check an EKG in the morning. cc: MD Giovani Salazar MD
[2019-05-16] MEDS: LANTUS INSULIN SUBQ SCH (21:33)
[2019-05-16] MEDS: TAMBOCOR PO SCH (21:34)
[2019-05-16] MEDS: ZOFRAN IV PRN (21:44)
[2019-05-17] MEDS: ULTRAM PO PRN ×3 (00:16→22:11)
[2019-05-17] MEDS: OXY IR PO PRN ×2 (05:00→20:27)
[2019-05-17 05:56] LABS: RBC 3.42 XMIL (4.2-5.4); WBC 6.12 X1000 (4.8-10.8)
[2019-05-17 05:57] LABS: BASO# 0.02 X1000 (0.0-0.2); BASO% 0.3 % (0.0-0.8); EOS# 0.47 X1000 (0.0-0.7); EOS% 7.7 % (0.0-10.0); HEMATOCRIT 29.6 % (37.0-47.0); HEMOGLOBIN 10.1 g/dL (12.0-16.0); LYMPH# 2.13 X1000 (1.2-3.4); LYMPH% 34.8 % (20.5-51.1); MCH 29.5 PG (27-31); MCHC 34.1 g/dL (33-37); MCV 86.5 FL (81-99); MONO# 0.76 X1000 (0.11-0.59); MONO% 12.4 % (1.7-9.3); MPV 9.3 FL (7.4-10.4); NEUT# 2.74 X1000 (1.4-6.5); NEUT% 44.8 % (42.2-75.2); PLT 164 X1000 (130-400); RDW 15.4 % (11.5-14.5)
[2019-05-17] MEDS: SYNTHROID PO SCH (06:01)
[2019-05-17] MEDS: PROTONIX PO SCH (06:01)
[2019-05-17 06:14] LABS: ALB/GLOB RATIO 0.8; ALBUMIN 2.5 g/dL (3.5-5.0); CALCIUM 7.9 mg/dL (8.8-10.2); POTASSIUM 3.5 mmol/L (3.5-5.1); TOTAL BILIRUBIN 1.73 mg/dL (0.20-1.00); TOTAL PROTEIN 5.8 g/dL (6.3-8.3)
[2019-05-17] MEDS: ASPIRIN PO SCH (11:04)
[2019-05-17] MEDS: LACTULOSE PO SCH ×2 (11:05→20:27)
[2019-05-17] MEDS: LASIX PO SCH (11:06)
[2019-05-17] MEDS: VITAMIN B-12 PO SCH (11:06)
[2019-05-17] MEDS: LOVENOX SUBQ SCH (11:06)
[2019-05-17] MEDS: TAMBOCOR PO SCH ×2 (11:07→20:28)
[2019-05-17] MEDS: XIFAXAN PO SCH (11:13)
--- NOTE | 2019-05-17 12:22 | PROGRESS NOTE ---
DATE: 05/17/2019 SUBJECTIVE: The patient states, overall, she had a much improved yesterday and rest overnight. The patient had no further episodes of atrial fibrillation. Yesterday, Dr. Tipton starting flecainide 25 mg twice daily. Thus far, she has tolerated this well. Additionally, patient states her leg pain was present, although improved last night with medical intervention. She currently denies fevers, chills, nausea, vomiting, shortness of breath, or chest discomfort. Her energy level remains low. OBJECTIVE: Temperature maximum 98.3 degrees, heart rate 54 to 87, respirations 14-18, blood pressure 129 to 155 over 35 to 64.General: Chronically ill-appearing, no acute distress. Cardiovascular: Regular rate and rhythm. A 3/6 systolic murmur noted at the right upper sternal border. No rubs or gallops. Pulmonary: Clear to auscultation bilaterally. Abdomen: Soft, nontender, nondistended. Positive bowel sounds. Extremities: Moves all extremities well. No significant clubbing, cyanosis, or edema. Dermatologic evaluation reveals no evidence of rash. DIAGNOSTIC STUDIES: White blood cell count 6.12, hemoglobin 10.1, hematocrit 29.6, platelet count 164,000. Sodium 138, potassium 3.5, chloride 101, bicarbonate 28, BUN 16, creatinine 1.0, glucose 110, calcium 7.9, total bilirubin 1.73 total protein 5.8, albumin 2.5, alkaline phosphatase 94, AST 25, ALT 17. Ammonia 111. ASSESSMENT AND PLAN: 1. Weakness with near-syncopal episode. At this point, this continues to suggest atrial fibrillation as a potential cause. We will treat as described below. We will continue to optimize the patient's medical and nonmedical management. 2. Atrial fibrillation with rapid ventricular response. Unfortunately, patient failed sotalol secondary to a prolonged QT interval. She has been started on low-dose flecainide therapy. Thus far, she has tolerated well. She remains in a sinus-generated rhythm today. 3. Anticoagulation. At this point, she is not a good candidate secondary to her underlying cirrhosis and extreme fall risk. As an outpatient, we will consider an EGD to rule out underlying varices. If indeed this is negative, we will consider starting anticoagulation at that time. 4. Nonalcoholic cirrhosis. The patient's ammonia level remains elevated despite lactulose and Xifaxan therapy. Her mentation, however, remains sound. We will discuss this further with Dr. Garza. We will determine if further intervention is warranted. 5. Persistent cough. The patient has achieved improvement with diuresis. We will continue to encourage aspiration precautions and incentive spirometry. 6. Lower extremity pain. Question is raised as to the etiology. Xifaxan was changed to noon rather than in the evening. With this, she did achieve some improvement. We will continue as- needed tramadol and oxycodone therapy. We will monitor her volume status. 7. Type 2 diabetes. We will continue patient on home dose of Lantus. DISPOSITION: At this point, patient continues to require nursing home care in a hospital setting. We will plan discharge home once appropriate. cc: Giovani Mariee MD
[2019-05-17] MEDS: MICRO-K PO SCH (13:29)
--- NOTE | 2019-05-17 14:42 | CARDIOLOGY PROGRESS NOTE ---
DATE: 05/17/2019 SUBJECTIVE: Ms. Baum reports feeling well overnight. She has no acute complaints. She had no bouts of atrial fibrillation. OBJECTIVE: On physical, she has been afebrile. Her heart rate is 60, blood pressure is 149/46. Generally, she is in no acute distress. Cardiovascularly, she sounds to be in a regular rate and rhythm. Current telemetry shows sinus rhythm. She has no murmurs. She has no S3. She has no lower extremity edema. Her chest exam sounds clear bilaterally. No increased work of breathing. Her abdomen is soft, nontender. PERTINENT DATA: The patient's EKG shows sinus rhythm, QTc of 485. Yesterday, it was 470. Sodium 138, potassium 3.5, BUN 16, creatinine is 1. ASSESSMENT: Ms Baum is a 73-year-old female with: 1. Atrial fibrillation. 2. Nonalcoholic steatohepatitis. PLAN: We will continue on flecainide. She seems to be maintaining sinus rhythm. Her EKG is acceptable. We will plan on holding on anticoagulation at this point secondary to concern for falls with her significant weakness as well as her liver issues. We will check an EKG in the morning. cc: MD Giovani Salazar MD
[2019-05-17] MEDS: DESYREL PO PRN (20:27)
[2019-05-17] MEDS: LANTUS INSULIN SUBQ SCH (20:28)
[2019-05-18] MEDS: PROTONIX PO SCH ×2 (05:42→07:12)
[2019-05-18] MEDS: SYNTHROID PO SCH ×2 (05:42→07:11)
--- NOTE | 2019-05-18 07:10 | EKG Report ---
Test Performed on : 05/18/2019 07:03:29 AM Test Reason : afib Blood Pressure : / mmHG Vent. Rate : 063 BPM Atrial Rate : 063 BPM P-R Int : 206 ms QRS Dur : 100 ms QT Int : 470 ms P-R-T Axes : 060 063 048 degrees QTc Int : 480 ms Normal sinus rhythm. Septal infarct (cited on or before 16-MAY-2019) Abnormal ECG When compared with ECG of 17-MAY-2019 06:07, (Unconfirmed) No significant change was found Confirmed by Dl SARGENT, Michael Marquis ([id number]) on 05/19/2019 7:28:27 PM
--- NOTE | 2019-05-18 07:21 | EKG Report ---
Test Performed on : 05/16/2019 03:14:39 AM Test Reason : rhythm change Blood Pressure : / mmHG Vent. Rate : 063 BPM Atrial Rate : 063 BPM P-R Int : 188 ms QRS Dur : 094 ms QT Int : 460 ms P-R-T Axes : 059 037 050 degrees QTc Int : 470 ms Normal sinus rhythm. Septal infarct , age undetermined Abnormal ECG When compared with ECG of 16-MAY-2019 00:09, (Unconfirmed) Sinus rhythm. has replaced Atrial fibrillation. Vent. rate has decreased BY 64 BPM QRS axis shifted left Nonspecific T wave abnormality no longer evident in Inferior leads Confirmed by Dl SARGENT, Michael Marquis ([id number]) on 05/19/2019 7:27:06 PM
--- NOTE | 2019-05-18 07:23 | EKG Report ---
Test Performed on : 05/16/2019 00:09:44 AM Test Reason : rhythm change Blood Pressure : / mmHG Vent. Rate : 127 BPM Atrial Rate : 131 BPM P-R Int : 000 ms QRS Dur : 094 ms QT Int : 318 ms P-R-T Axes : 000 106 -73 degrees QTc Int : 462 ms Atrial fibrillation. with rapid ventricular response. Rightward axis Nonspecific ST and T wave abnormality Abnormal ECG When compared with ECG of 15-MAY-2019 06:43, (Unconfirmed) Atrial fibrillation. has replaced Sinus rhythm. Vent. rate has increased BY 49 BPM QRS axis shifted right ST now depressed in Anterior leads Nonspecific T wave abnormality, worse in Inferior leads Confirmed by Dl SARGENT, Michael Marquis ([id number]) on 05/19/2019 7:27:00 PM
--- NOTE | 2019-05-18 08:11 | EKG Report ---
Test Performed on : 05/17/2019 06:07:37 AM Test Reason : afib Blood Pressure : / mmHG Vent. Rate : 059 BPM Atrial Rate : 059 BPM P-R Int : 194 ms QRS Dur : 106 ms QT Int : 490 ms P-R-T Axes : 066 047 044 degrees QTc Int : 485 ms Sinus bradycardia. Possible Anterior infarct , age undetermined Abnormal ECG When compared with ECG of 17-MAY-2019 06:04, (Unconfirmed) Previous ECG has undetermined rhythm, needs review Confirmed by Dl SARGENT, Michael Marquis ([id number]) on 05/19/2019 7:27:57 PM
[2019-05-18] MEDS: ASPIRIN PO SCH (08:15)
[2019-05-18] MEDS: LACTULOSE PO SCH (08:15)
[2019-05-18] MEDS: VITAMIN B-12 PO SCH (08:15)
[2019-05-18] MEDS: MICRO-K PO SCH (08:15)
[2019-05-18] MEDS: TAMBOCOR PO SCH (08:16)
[2019-05-18] MEDS: LOVENOX SUBQ SCH (08:16)
[2019-05-18] MEDS: LASIX PO SCH (08:16)
[2019-05-18 08:17] VITALS: BP 145/38
[2019-05-18] MEDS: XIFAXAN PO SCH (13:31)
--- NOTE | 2019-05-20 16:36 | CARDIOLOGY PROGRESS NOTE ---
DATE: 05/18/2019 SUBJECTIVE: Patient reports she is doing well. She is ambulating in the bowles. She has no palpitations. PHYSICAL EXAMINATION: Vital Signs: Afebrile. Heart rate 61, blood pressure 145/38. General: She is in no acute distress. Cardiovascular: She is in a regular rate and rhythm. She has a 2/6 systolic murmur at the right upper sternal border. She has no lower extremity edema. Chest: Chest sounds clear to auscultation bilaterally. No increased work of breathing. Abdomen: Soft, nontender. PERTINENT DATA: She has no new laboratory data from today. Her EKG interpreted by me shows a QTc interval of 480 which is stable. She is in sinus mechanism. ASSESSMENT: Ms. Baum is a 73-year-old female who presented with weakness. She has a history of nonalcoholic steatohepatitis. She has had periodic bouts of atrial fibrillation. PLAN: She seems to be maintaining sinus rhythm on very low doses of flecainide. I would continue this for now. She is continuing on aspirin as well. From my standpoint, she could be discharged later on today. We will have her follow up in the office in the near future. We have already made arrangements for an outpatient heart monitor to be worn for 2 weeks in order to evaluate for control of her rhythm. cc: MD Giovani Salazar MD MTDD
--- NOTE | 2019-05-21 11:58 | DISCHARGE SUMMARY ---
ADMISSION DATE: 05/10/2019 DISCHARGE DATE: 05/18/2019 ADMISSION DIAGNOSIS: Weakness. DISCHARGE DIAGNOSES: 1. Weakness with near syncopal episode, likely secondary to atrial fibrillation with rapid ventricular response. 2. Atrial fibrillation with rapid ventricular response. 3. Need for anticoagulation, but with the risks outweigh the benefits. 4. Nonalcoholic cirrhosis. 5. Persistent cough. 6. Lower extremity pain. 7. Type 2 diabetes. CONSULTATIONS: Dr. Tipton with Cardiology was consulted for further evaluation and management of atrial fibrillation with rapid ventricular response. PROCEDURES: An echocardiogram was performed on 05/11/2019, which revealed mild tricuspid regurgitation. RV systolic pressure of 47. Normal RV size and systolic function. Mild pulmonic insufficiency. Mild left atrial enlargement with a dimension of 4 cm. No mitral valve prolapse. Mild mitral regurgitation. Left ventricular ejection fraction of 67% with normal wall motion. Peek gradient across the aortic valve is 46 with a mean of 25. The valve area was calculated out at 1.0 cm2. On visual evaluation of the valve, it does not appear to be a particularly stenotic valve. There was a relatively narrow left ventricular outflow tract, likely the etiology of the gradient. There is mild aortic insufficiency. There is a pleural effusion present as well as trace pericardial effusion. HISTORY AND PHYSICAL EXAMINATION: See admit note. Physical examination prior to discharge. Vital signs: Temperature 97.6 degrees, heart rate 58, respirations 20, blood pressure is 145/38. General: Chronically ill appearing, no acute distress. Cardiovascular: Regular rate and rhythm. No significant murmurs, rubs, or gallops. Pulmonary: Clear to auscultation bilaterally. Abdomen: Soft, nontender, nondistended. Positive bowel sounds. Extremities: Moves all extremities well. No significant clubbing, cyanosis, or edema. Dermatologic: Evaluation reveals no evidence of rash. LABORATORY DATA: Prior to discharge: None. HOSPITAL COURSE: The patient was admitted as per history and physical examination. Hospital course per condition is as follows. 1. Weakness with near syncopal episode - Upon admission, patient was noted to have profound weakness resulting in a near syncopal episode. Initially, it was felt this likely was secondary to volume depletion. While hospitalized, patient was diagnosed with atrial fibrillation with a rapid ventricular response. After a full evaluation while hospitalized, it was felt this likely was the source of her intermittent weakness. We will treat atrial fibrillation as described below. 2. Atrial fibrillation with rapid ventricular response - Upon admission, Cardiology was consulted. The patient was started on sotalol therapy. Unfortunately, she did not tolerate this secondary to a prolonged QT interval. The patient was then converted to a very low-dose flecainide. While hospitalized, the patient tolerated this well. Patient will be discharged with flecainide therapy. An event monitor has been arranged per Cardiology. We will follow along with Dr. Tipton as an outpatient. 3. Anticoagulation - The patient and I discussed this in great detail while hospitalized. At present time, she has an extreme fall risk, as well as has underlying cirrhosis. We will plan to check an EGD is an outpatient to rule out esophageal varices. Depending on this finding, we will determine whether starting anticoagulation is appropriate. 4. Nonalcoholic cirrhosis - Unfortunately, the patient's ammonia level remains elevated despite lactulose and Xifaxan therapy. Her mentation, however, remains acceptable. At this point, the patient appears to be maximized to medically. We will continue her current regimen of lactulose and Xifaxan. We will encourage dietary modification with a modest amount of animal protein and higher amount of vegetable based protein. We will encourage followup with Dr. Garza. 5. Persistent cough - While hospitalized, the patient did achieve improvement with diuresis. We will need to follow patient's volume status closely as an outpatient. 6. Hypokalemia - The patient developed borderline hypokalemia while hospitalized with Lasix therapy. She was started on very low-dose potassium supplementation. We will plan to recheck this in approximately 1 week as an outpatient. 7. Lower extremity pain - The patient continued to have significant lower extremity pain, primarily at night time. She is currently treated with acetaminophen and tramadol therapy. While hospitalized, we adjusted the timing of Xifaxan to take at noon. We added as-needed oxycodone. With this, the symptoms stabilized. We will continue this as an outpatient. We will remain aware that volume may also be playing a role. 8. Type 2 diabetes - The patient was continued on home dose Lantus while hospitalized. Blood sugars remained reasonably controlled. 9. Volume overload - This is secondary to cirrhosis. She was treated with Lasix therapy while hospitalized. We will continue this, but pay close attention to her dry weight as at times she has become volume deplete. We will follow this closely as well. DISCHARGE CONDITION: Stable. DISPOSITION: Discharged to home. MEDICATIONS: 1. Lasix 40 mg alternating with 80 mg daily. 2. Potassium chloride 8 mEq daily. 3. Oxycodone 5 mg every 3 hours as needed, #20. 4. Flecainide 25 mg twice daily. 5. Xifaxan 550 mg daily at noon. 6. Lantus 6 units at bedtime. 7. Trazodone 100 mg at bedtime as needed. 8. Lactulose 10 mg twice daily. 9. Protonix 40 mg daily. 10. Robaxin 500 mg 3 times daily as needed. 11. Singulair 10 mg daily. 12. Tylenol 650 mg every 6 hours as needed. 13. Tramadol 50 mg every 6 hours as needed. 14. Vitamin B12 1000 mcg daily. 15. Aspirin 81 mg daily. 16. Levothyroxine 112 mcg daily. 17. Zinc 220 mg daily. FOLLOW-UP: The patient is to follow up with me in approximately 1 to 2 weeks. Patient is follow up with Dr. Tipton in 2 weeks. Patient is to follow up with Dr. Garza in 2 weeks. cc: Giovani Mariee MD
== END 2019-05-18 15:30 | disposition home or self-care (01) | DRG 309 ==
LOC: SUPCPDRO → EDSEX → ED 20:03 → SUATTDRO 05-10 02:55 → 3N 05-10 02:55 → OBSVTOIN 05-10 02:55 → INTOOBSV 05-10 02:55 → 3S 05-12 09:17
PROVIDERS: ADMIT Internal Medicine; ATTEND Internal Medicine
CPT/HCPCS: 71010; 71020; 71045; 71046; 80048; 80053; 81001; 82140; 82550; 82948; 83690; 83735; 84443; 84484; 85025; 85610; 87088; 93005; 93010; 93306; 93308; 94761; 94799; 96360; 96361; 97162; 97530; 99285; A9270; J1650; J1815; J2405; J7030; XXXXX

== ENCOUNTER 2019-05-31 13:34 | Inpatient (IN) ==
[2019-05-31 15:02] LABS: BASO# 0.02 X1000 (0.0-0.2); BASO% 0.4 % (0.0-0.8); EOS# 0.19 X1000 (0.0-0.7); HEMATOCRIT 33.7 % (37.0-47.0); HEMOGLOBIN 11.6 g/dL (12.0-16.0); LYMPH# 1.03 X1000 (1.2-3.4); LYMPH% 21.5 % (20.5-51.1); MCH 29.4 PG (27-31); MCHC 34.4 g/dL (33-37); MCV 85.3 FL (81-99); MONO# 0.33 X1000 (0.11-0.59); MONO% 6.9 % (1.7-9.3); MPV 8.9 FL (7.4-10.4); NEUT# 3.22 X1000 (1.4-6.5); NEUT% 67.2 % (42.2-75.2); PLT 135 X1000 (130-400); RBC 3.95 XMIL (4.2-5.4); RDW 15.9 % (11.5-14.5); WBC 4.79 X1000 (4.8-10.8)
[2019-05-31 15:15] LABS: PTT 32.3 Seconds (22.3-41.8)
[2019-05-31 15:16] LABS: INR 1.19
[2019-05-31 15:23] LABS: URINE SOURCE CLEAN CATCH
[2019-05-31 15:24] LABS: BLOOD TYPE ARTERIAL; SAMPLE BLOOD
[2019-05-31 15:25] LABS: ALLEN TEST YES; BE 4.5 mmoll (-3.0-3.0); HCO3-(ACT) 28.4 mmoll (20.0-26.0); METHB 0.7 % (0.0-1.5); MODALITY ROOM AIR; O2(CT) 14.5 mL/dL (15.0-23.0); O2HB 94.4 % (95.0-99.0); PCO2(98.6) 38 mmHg (35-45); PO2(98.6) 72 mmHg (60-100); SAO2 97.9 % (95.0-100.0); THB 10.9 g/dL (11.5-17.4); pH(98.6) 7.48 (7.35-7.45)
[2019-05-31 15:26] LABS: UR EPITHELIAL CELLS <10 /HPF (<10); URINE BACTERIA NEGATIVE /HPF; URINE RBC <10 /HPF (<10); URINE WBC <10 /HPF (<10)
[2019-05-31 15:27] LABS: BILIRUBIN URINE NEGATIVE (NEGATIVE); BLOOD URINE NEGATIVE (NEGATIVE); COLOR YELLOW; GLUCOSE URINE NEGATIVE (NEGATIVE); KETONE URINE NEGATIVE (NEGATIVE); LEUKOCYTES URINE NEGATIVE (NEGATIVE); NITRITE URINE NEGATIVE (NEGATIVE); PH URINE 7.5; PROTEIN URINE NEGATIVE (NEGATIVE); SP GRAVITY URINE 1.014; TURBIDITY URINE CLEAR (CLEAR); UROBILINOGEN URINE 2 mg/dL (NORMAL)
[2019-05-31 15:33] LABS: AGAP 4; ALBUMIN 3.3 g/dL (3.5-5.0); ALKALINE PHOSPHATASE 96 U/L (32-104); BUN 25 mg/dL (8-22); CHLORIDE 105 mmol/L (98-107); CK PROFILE 157 U/L (24-173); COSMO 289; CREATININE 0.9 mg/dL (0.5-0.9); ESTIMATED GFR > 60; GLUCOSE 125 mg/dL (70-104); GOT 30 U/L (10-30); GPT 18 U/L (10-36); SODIUM 142 mmol/L (136-145); TCO2 33 mmol/L (25-35); TOTAL BILIRUBIN 1.37 mg/dL (0.20-1.00); TOTAL PROTEIN 6.6 g/dL (6.3-8.3)
--- NOTE | 2019-05-31 15:54 | Diag Imaging Result Doc PS360 ---
CT HEAD W/O CONTRAST - 05/31/2019 INDICATION: ams COMPARISON: 02/17/2019 FINDINGS: The ventricles and sulci are normal in size and contour. No intracranial mass or hemorrhage. The skull is intact. The sinuses mastoids and middle ears are clear. IMPRESSION: Negative exam. This exam was performed using automated exposure control, adjustment of mA or kV according to patient size, and/or use of iterative reconstruction technique Electronically signed by Nestor Paul 05/31/2019 3:52 PM
--- NOTE | 2019-05-31 15:56 | Diag Imaging Result Doc PS360 ---
CHEST-PORTABLE - 05/31/2019 INDICATION: pna COMPARISON: 05/15/2019 FINDINGS: Stable cardiomegaly and pulmonary vascular congestion. There is been decrease in the tiny right pleural effusion. Stable small left pleural effusion. No dense infiltrates. IMPRESSION: Improvement from prior. Electronically signed by Nestor Paul 05/31/2019 3:54 PM
[2019-05-31] MEDS ORDERED: LACTULOSE PO ONE (16:03)
--- NOTE | 2019-05-31 16:21 | PROVIDER DOCUMENTATION ---
This chart was entered by Fabiola Johnson Scribe, acting as scribe for Mirna Marquez MD. HPI-General Adult - General Chief Complaint: Altered Mental Status Stated Complaint: AMS Time Seen by Provider: 05/31/19 14:03 Source: family Allergies/Adverse Reactions: Patient Allergies Allergy/AdvReac Type Severity Reaction Status Date / Time dopamine [Dopamine] Allergy Severe ANAPHYLAXIS Verified 02/17/19 21:15 Home Medications: Home Medication List Medication Instructions Recorded Confirmed Last Taken Type Acetaminophen [Tylenol] 650 mg PO Q6H PRN PRN tab 04/29/19 05/10/19 Unknown Rx Aspirin 81 mg PO DAILY chewtab 04/29/19 05/10/19 Unknown Rx Cyanocobalamin [Vitamin B-12] 1,000 microgm PO DAILY tab 04/29/19 05/10/19 Unknown Rx Lactulose 10 ml PO BID #0 udc 04/29/19 05/10/19 Unknown Rx Levothyroxine [Synthroid] 112 microgm PO DAILY@0700 tab 04/29/19 05/10/19 Unknown Rx Methocarbamol [Robaxin] 500 mg PO TID PRN PRN tab 04/29/19 05/10/19 Unknown Rx Montelukast [Singulair] 10 mg PO DAILY tab 04/29/19 05/10/19 Unknown Rx Pantoprazole [Protonix] 40 mg PO DAILY@0700 tab 04/29/19 05/10/19 Unknown Rx Tramadol [Ultram] 50 mg PO Q6H PRN PRN tab 04/29/19 05/10/19 Unknown Rx Trazodone [Desyrel] 100 mg PO HS PRN PRN tab 04/29/19 05/10/19 Unknown Rx Zinc Sulfate 220 mg PO DAILY 05/12/19 05/12/19 Unknown History Flecainide [Tambocor] 25 mg PO BID #60 tab 05/18/19 Unknown Rx Furosemide [Lasix] 40 mg PO EVERY OTHER DAY tab 05/18/19 Unknown Rx Furosemide [Lasix] 80 mg PO EVERY OTHER DAY tab 05/18/19 Unknown Rx Insulin Glargine [Lantus Insulin] 6 unit SUBQ QHS unit 05/18/19 Unknown Rx Oxycodone I.r. [Oxy Ir] 5 mg PO Q3H PRN PRN #15 tab 05/18/19 Unknown Rx Potassium Chloride E.r. [Micro-K] 8 meq PO DAILY #30 cap 05/18/19 Unknown Rx Rifaximin [Xifaxan] 550 mg PO DAILY@1200 tab 05/18/19 Unknown Rx - History of Present Illness -Gen Adult Nature of Presenting Problems: 73 y/o female presents to ED with worsening AMS, weakness, aggressive behavior onset 2 days ago. Family of pt is at bedside and reports she is refusing to eat/drink. Family states she usually cares for herself. Pt has hx liver cirrhosis. Pt is alert and disoriented. Location of Pain/Injury: reports: none Pain Radiation: reports: no radiation Quality of Pain: reports: none Severity: reports: moderate Onset/Duration: reports: 2 days ago Timing: reports: still present Context/Activities at Onset: reports: none Modifying Factors: improves with: nothing Associated Symptoms: reports: weakness, other (AMS; refusing to eat/drink; aggressive behavior) Similar Symptoms Previously?: No Recently seen or treated by another doctor?: No Review of Systems - Adult - REVIEW OF SYSTEMS - ADULT ROS:: ROS per family (AMS; refusing to eat/drink; aggressive behavior) Constitutional: reports: other (AMS; refusing to eat/drink; aggressive behavior) . denies: chills, fever Eyes: reports: no symptoms reported Ears, Nose, Mouth & Throat: reports: no symptoms reported Cardiovascular: reports: no symptoms reported Respiratory: reports: no symptoms reported Gastrointestinal: reports: no symptoms reported Genitourinary: reports: no symptoms reported Musculoskeletal: reports: no symptoms reported Integumentary: reports: no symptoms reported Neurological: reports: no symptoms reported Psychiatric: reports: no symptoms reported Endocrine: reports: no symptoms reported Hematologic/Lymphatic: reports: no symptoms reported Allergic/Immunologic: reports: no symptoms reported All Other Systems: Reviewed and Negative Past History - Adult - PAST MEDICAL HISTORY-ADULT Review of Records: reports: Old Records Reviewed, Nursing Assessment Review, Medications Reviewed Major Childhood Illnesses: reports: denies history Cardiovascular: reports: HTN Respiratory: reports: denies history Gastrointestinal: reports: GERD Obstetrical/Gynecological: reports: denies history Genitourinary: reports: kidney stones Musculoskeletal: reports: denies history Neurological: reports: denies history Endocrine/Immune: reports: Diabetes, thyroid disorder (hypo) Other Conditions: reports: denies history - PRIOR SURGERIES/PROCEDURES Surgical/Procedure History: reports: cholecystectomy, tonsillectomy, back/neck, other (cystoscopy; TIPS) - PRIOR HOSPITALIZATIONS Prior Hospitalizations: reports: for other non-related - IMMUNIZATION STATUS Childhood Immunizations: See Nurse Assessment Flu Vaccine: See Nurse Assessment - FAMILY HISTORY Family History: reviewed, not pertinent - SOCIAL HISTORY Smoking: non-smoker Substance Use: none/never Alcohol Use Frequency: never Living Situation: family Physical Exam-General - PHYSICAL EXAM-ADULT Initial Vital Signs Reviewed: Yes - CONSTITUTIONAL General Appearance: appears well, alert, no apparent distress, other (altered; disoriented; unable to follow commands) - EYES Eyes: PERRL/EOMI, pink conjunctivae - HEAD, EARS, NOSE, MOUTH & THROAT HENMT: normocephalic/atraumatic, moist mucous membranes, normal ENT inspection - NECK Neck: non-tender, full range of motion - RESPIRATORY Respiratory: chest non-tender, lungs clear, normal breath sounds - CARDIOVASCULAR Cardiovascular: normal peripheral pulses, regular rate, rhythm, systolic murmur - GASTROINTESTINAL (ABDOMEN) Abdominal Exam: normal bowel sounds, non tender, soft - MUSCULOSKELETAL Back Exam: normal inspection, no CVA tenderness, no vertebral tenderness Extremity: normal range of motion, non-tender - SKIN Integumentary: normal color, warm/dry - NEUROLOGIC Neurologic: grossly normal, other (altered; disoriented; unable to follow commands) - PSYCHIATRIC Psych/Mental Status: other (altered; disoriented; unable to follow commands) Progress - PLAN OF CARE/RESULTS Progress/Plan/Lab Results: Vital Signs - 8 hr 05/31/19 14:25 Temperature 99.1 F Pulse Rate 83 Respiratory Rate 13 Blood Pressure 142/93 O2 Sat by Pulse Oximetry 98 Orders Category Date Time Status Cardiac Monitoring DIRECTED Care 05/31/19 14:35 Active Finger Stick Blood Sugar (ED) DIRECTED Care 05/31/19 14:35 Active Oxygen Therapy- ED Nursing DIRECTED Care 05/31/19 14:35 Active Saline Loc NOW Care 05/31/19 14:35 Active CHEST-PORTABLE [RAD] Stat Exams 05/31/19 14:[address] HEAD W/O CONTRAST [CT] Stat Exams 05/31/19 14:35 Ordered ABG [RESP] Routine Lab 05/31/19 14:35 Ordered AMMONIA [CHEM] Stat Lab 05/31/19 14:34 Uncollected CBC WITH ELECTRONIC DIFF [HEME] Stat Lab 05/31/19 14:35 Uncollected CK PROFILE [SP CHEM] Stat Lab 05/31/19 14:35 Uncollected COMPREHENSIVE METABOLIC PANEL [CHEM] Stat Lab 05/31/19 14:35 Uncollected LACTATE, PLASMA [CHEM] Stat Lab 05/31/19 14:35 Uncollected PROTIME WITH INR [COAG] Stat Lab 05/31/19 14:35 Uncollected PTT [COAG] Stat Lab 05/31/19 14:35 Uncollected TROPONIN T Stat Lab 05/31/19 14:35 Uncollected URINALYSIS [URINALYSIS] Stat Lab 05/31/19 14:35 Uncollected Altered Mental Status Stat Oth 05/31/19 14:34 Ordered EKG [EKG] Stat Ther 05/31/19 14:35 Ordered Laboratory Tests 05/31/19 05/31/19 05/31/19 14:43 14:45 14:45 WBC 4.79 L RBC 3.95 L Hgb 11.6 L Hct 33.7 L MCV 85.3 MCH 29.4 MCHC 34.4 RDW Std Deviation 15.9 H Plt Count 135 MPV 8.9 Immature Gran % (Auto) 0.0 Neut % (Auto) 67.2 Lymph % (Auto) 21.5 [place] % (Auto) 6.9 Eos % (Auto) 4.0 Baso % (Auto) 0.4 Immature Gran # (Auto) 0.00 Neut # (Auto) 3.22 Lymph # (Auto) 1.03 L [place] # (Auto) 0.33 Eos # (Auto) 0.19 Baso # (Auto) 0.02 PT INR PTT (Actin FS) Specimen Type Sample Site pH pCO2 pO2 HCO3 Base Excess Oxyhemoglobin ABG O2 Sat (Calculated) ABG O2 Saturation ABG Carboxyhemoglobin ABG Methemoglobin Michael Test A-a O2 Difference Total Hemoglobin Lactate Blood Gas Modality FiO2 % Sodium Potassium Chloride Carbon Dioxide Anion Gap BUN Creatinine Estimated GFR/1.73 m2 BUN/Creatinine Ratio Glucose POC Glucose 129 H Calculated Osmolality Calcium Total Bilirubin AST ALT Alkaline Phosphatase Ammonia 147 H Creatine Kinase Troponin T Total Protein Albumin Globulin Albumin/Globulin Ratio Plasma Lactate Urine Source Urine Color Urine Turbidity Urine pH Ur Specific [place] Urine Protein Ur Glucose (Stick) Ur Ketones (Stick) Urine Blood Urine Nitrite Urine Bilirubin Urobilinogen Dipstick Urine Leukocytes Urine WBC (Auto) Urine RBC (Auto) U Epithel Cells (Auto) Urine Bacteria (Auto) 05/31/19 05/31/19 05/31/19 14:45 14:45 14:45 WBC RBC Hgb Hct MCV MCH MCHC RDW Std Deviation Plt Count MPV Immature Gran % (Auto) Neut % (Auto) Lymph % (Auto) [place] % (Auto) Eos % (Auto) Baso % (Auto) Immature Gran # (Auto) Neut # (Auto) Lymph # (Auto) [place] # (Auto) Eos # (Auto) Baso # (Auto) PT 16.0 INR 1.19 PTT (Actin FS) 32.3 Specimen Type Sample Site pH pCO2 pO2 HCO3 Base Excess Oxyhemoglobin ABG O2 Sat (Calculated) ABG O2 Saturation ABG Carboxyhemoglobin ABG Methemoglobin Michael Test A-a O2 Difference Total Hemoglobin Lactate Blood Gas Modality FiO2 % Sodium 142 Potassium 4.0 Chloride 105 Carbon Dioxide 33 Anion Gap 4 BUN 25 H Creatinine 0.9 Estimated GFR/1.73 m2 > 60 BUN/Creatinine Ratio 28 Glucose 125 H POC Glucose Calculated Osmolality 289 Calcium 9.0 Total Bilirubin 1.37 H AST 30 ALT 18 Alkaline Phosphatase 96 Ammonia Creatine Kinase 157 Troponin T Total Protein 6.6 Albumin 3.3 L Globulin 3.3 Albumin/Globulin Ratio 1.0 Plasma Lactate 1.7 Urine Source Urine Color Urine Turbidity Urine pH Ur Specific [place] Urine Protein Ur Glucose (Stick) Ur Ketones (Stick) Urine Blood Urine Nitrite Urine Bilirubin Urobilinogen Dipstick Urine Leukocytes Urine WBC (Auto) Urine RBC (Auto) U Epithel Cells (Auto) Urine Bacteria (Auto) 05/31/19 05/31/19 05/31/19 14:45 15:15 15:15 WBC RBC Hgb Hct MCV MCH MCHC RDW Std Deviation Plt Count MPV Immature Gran % (Auto) Neut % (Auto) Lymph % (Auto) [place] % (Auto) Eos % (Auto) Baso % (Auto) Immature Gran # (Auto) Neut # (Auto) Lymph # (Auto) [place] # (Auto) Eos # (Auto) Baso # (Auto) PT INR PTT (Actin FS) Specimen Type ARTERIAL Sample Site R RADIAL pH 7.48 H pCO2 38 pO2 72 HCO3 28.4 H Base Excess 4.5 H Oxyhemoglobin 94.4 L ABG O2 Sat (Calculated) 14.5 L ABG O2 Saturation 97.9 ABG Carboxyhemoglobin 3.00 H ABG Methemoglobin 0.7 Michael Test YES A-a O2 Difference 30.0 Total Hemoglobin 10.9 L Lactate 1.20 Blood Gas Modality ROOM AIR FiO2 % 21.0 Sodium Potassium Chloride Carbon Dioxide Anion Gap BUN Creatinine Estimated GFR/1.73 m2 BUN/Creatinine Ratio Glucose POC Glucose Calculated Osmolality Calcium Total Bilirubin AST ALT Alkaline Phosphatase Ammonia Creatine Kinase Troponin T < 0.010 Total Protein Albumin Globulin Albumin/Globulin Ratio Plasma Lactate Urine Source CLEAN CATCH Urine Color YELLOW Urine Turbidity CLEAR Urine pH 7.5 Ur Specific [place] 1.014 Urine Protein NEGATIVE Ur Glucose (Stick) NEGATIVE Ur Ketones (Stick) NEGATIVE Urine Blood NEGATIVE Urine Nitrite NEGATIVE Urine Bilirubin NEGATIVE Urobilinogen Dipstick 2 A Urine Leukocytes NEGATIVE Urine WBC (Auto) <10 Urine RBC (Auto) <10 U Epithel Cells (Auto) <10 Urine Bacteria (Auto) NEGATIVE Result Diagrams: 05/31/19 14:45 05/31/19 14:45 - EKG 1 Time of EKG reading by physician:: 14:35 EKG Read and Signed by:: Mirna Marquez EKG Interpretation (*Must complete 3 of following elements*): Abnormal Rate: 81 Rhythm: Sinus with 1st degree AV block with premature supraventricular complexes Mcdade: normal QRS: PVC's (supraventricular), other (septal infarct) MI Interval: normal ST Wave: normal - XRAY 1 XRAY Study: Chest Impression: See EMR Report ([facility] [address] [facility], [address], [place] [address] Department of Imaging Patient: [facility] Date: 05/31/19#: [id number] : 1945DM Status: REG ERAcct#: [id number] Age/Sex: 73/FRoom/Bed: Loc: ED Ordering Physician: Mirna Marquez MD Family Physician: Giovani Mariee MD Reason for Procedure: pna ____ Signed CHEST-PORTABLE - 05/31/2019 INDICATION: pna COMPARISON: 05/15/2019 FINDINGS: Stable cardiomegaly and pulmonary vascular congestion. There is been decrease in the tiny right pleural effusion. Stable small left pleural effusion. No dense infiltrates. IMPRESSION: Improvement from prior. Electronically signed by Nestor Paul 05/31/2019 3:54 PM 05/31/19 1554 Interpreting Physician: Nestor Paul MD Dictated Date/Time: 05/31/19 8566 cc: Mirna Marquez MD; Giovani Mariee MD) - CT/MRI 1 CT Study: Head Impression: See EMR Report ([facility] [address] [facility], [address], [place] [address] Department of Imaging Patient: ADRIENNE NEGRETE Date: 05/31/19#: [id number] : 1945DM Status: REG ERAcct#: [id number] Age/Sex: 73/FRoom/Bed: Loc: ED Ordering Physician: Mirna Marquez MD Family Physician: Giovani Mariee MD Reason for Procedure: ams Signed CT HEAD W/O CONTRAST - 05/31/2019 INDICATION: ams COMPARISON: 02/17/2019 FINDINGS: The ventricles and sulci are normal in size and contour. No intracranial mass or hemorrhage. The skull is intact. The sinuses mastoids and middle ears are clear. IMPRESSION: Negative exam. This exam was performed using automated exposure control, adjustment of mA or kV according to patient size, and/or use of iterative reconstruction technique Electronically signed by Nestor Paul 05/31/2019 3:52 PM 05/31/19 1552 Interpreting Physician: Nestor Paul MD Dictated Date/Time: 05/31/19 1550 cc: Mirna Marquez MD; Giovani Mariee MD) - CONSULTS/PCP/HOSPITALIST Notification #1 *Consult/PCP/Hospitalist*: Dr. Yoo for Dr. Mariee Reason/Comments: Hyperammonemia, AMS Consult Disposition: Admit Departure - Departure Date of Disposition Decision: 05/31/19 Time of Disposition Decision: 16:15 DIAGNOSIS: Hyperammonemia, Hepatic encephalopathy Altered mental status Qualifiers: Altered mental status type: unspecified Qualified Code(s): R41.82 - Altered mental status, unspecified Disposition: ADMITTED INPATIENT 09 Certified Medical Emergency: Emergent Condition: Stable Referrals and Follow-Ups: Giovani Mariee MD [Primary Care Provider] - Call for Appoint. 1-2days - Critical Care Note This patient required my direct & personal management of CC.: No Attestation - Physician/ CHRISTOPHE Attestation Patient care was provided by Advanced Practice Provider:: No The physician spent face to face time with patient:: Yes Advanced Practice Provider documentation review:: Supervising physician onsite and consulted in the evaluation and care of this patient. The physician did have a face to face encounter with the patient. This chart was documented by the indicated scribe, (Fabiola Johnson, Lorri) and accurately reflects the services I performed and decisions made by me, Mirna Marquez MD, as attested by the provider's signature.
[2019-05-31] MEDS ORDERED: TYLENOL PO PRN (18:18)
[2019-05-31] MEDS ORDERED: SODIUM CHLORIDE 0.9% INJ PRN (18:18)
[2019-05-31] MEDS ORDERED: PHENERGAN IV PRN (18:18)
[2019-05-31 20:01] LABS: URINE SOURCE CATH
[2019-05-31 20:13] LABS: BILIRUBIN URINE NEGATIVE (NEGATIVE); BLOOD URINE MODERATE (NEGATIVE); COLOR YELLOW; GLUCOSE URINE NEGATIVE (NEGATIVE); KETONE URINE TRACE mg/dL (NEGATIVE); LEUKOCYTES URINE NEGATIVE (NEGATIVE); NITRITE URINE NEGATIVE (NEGATIVE); PROTEIN URINE TRACE mg/dL (NEGATIVE); SP GRAVITY URINE 1.015; TURBIDITY URINE CLEAR (CLEAR); UROBILINOGEN URINE 2 mg/dL (NORMAL)
[2019-05-31 20:18] LABS: UR EPITHELIAL CELLS <10 /HPF (<10); URINE BACTERIA NEGATIVE /HPF; URINE RBC 20-40 /HPF (<10); URINE WBC <10 /HPF (<10)
[2019-05-31] MEDS: HUMULIN R SUBQ SCH (22:04)
[2019-05-31] MEDS: LACTULOSE PO SCH (22:25)
[2019-05-31] MEDS: TAMBOCOR PO SCH (22:27)
[2019-06-01] MEDS: HUMULIN R SUBQ SCH ×4 (06:01→20:53)
[2019-06-01] MEDS: SYNTHROID PO SCH (06:01)
[2019-06-01] MEDS: PROTONIX PO SCH (06:01)
[2019-06-01 06:51] LABS: BASO# 0.04 X1000 (0.0-0.2); BASO% 0.7 % (0.0-0.8); EOS# 0.28 X1000 (0.0-0.7); EOS% 5.2 % (0.0-10.0); HEMATOCRIT 31.4 % (37.0-47.0); HEMOGLOBIN 10.8 g/dL (12.0-16.0); LYMPH# 1.67 X1000 (1.2-3.4); LYMPH% 30.9 % (20.5-51.1); MCH 30.1 PG (27-31); MCHC 34.4 g/dL (33-37); MCV 87.5 FL (81-99); MONO# 0.53 X1000 (0.11-0.59); MONO% 9.8 % (1.7-9.3); MPV 9.1 FL (7.4-10.4); NEUT# 2.89 X1000 (1.4-6.5); NEUT% 53.4 % (42.2-75.2); PLT 122 X1000 (130-400); RBC 3.59 XMIL (4.2-5.4); RDW 16.4 % (11.5-14.5); WBC 5.41 X1000 (4.8-10.8)
--- NOTE | 2019-06-01 07:21 | PROGRESS NOTE ---
DATE: 06/01/2019 SUBJECTIVE: Ms. Baum has a history of cirrhosis secondary to nonalcoholic steatohepatitis. She has had a previous TIPS procedure. She was admitted to [facility] with hepatic encephalopathy. We gave her lactulose 30 mL p.o. x1 dose in the ER and continued her lactulose and Xifaxan. Clinically, she is much better. She is awake and easily arousable this morning. She is oriented to name, place, and time. She denies any nausea or vomiting. She has a history of paroxysmal atrial fibrillation. She remains in normal sinus rhythm. She denies any chest pain, palpitations, or anginal equivalents. She is requesting that her Salazar be removed. She is tolerating a clear liquid diet without nausea or vomiting. OBJECTIVE: Vital Signs: Temperature 98.8 degrees, pulse 80, BP 154/62. CV: Regular rate and rhythm. Lungs: Clear. Abdomen: Soft, nontender, with active bowel sounds. ASSESSMENT AND PLAN: 1. 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 Clinically, she is better this morning. We will continue lactulose 10 mL by mouth twice a day and Xifaxan 550 mg twice a day. I will recheck an ammonia level this morning. We will increase activity. We will discontinue the Salazar. 2. Type 2 IDDM---I will advance to GI soft diet and continue pattern sugars and sliding scale insulin. cc: Velia Yoo MD MTDD
[2019-06-01 07:23] LABS: AGAP 13; ALB/GLOB RATIO 0.7; ALBUMIN 2.7 g/dL (3.5-5.0); ALKALINE PHOSPHATASE 90 U/L (32-104); BUN 17 mg/dL (8-22); CALCIUM 8.7 mg/dL (8.8-10.2); CHLORIDE 107 mmol/L (98-107); COSMO 283; CREATININE 0.8 mg/dL (0.5-0.9); ESTIMATED GFR > 60; GLUCOSE 109 mg/dL (70-104); GOT 34 U/L (10-30); GPT 19 U/L (10-36); POTASSIUM 3.6 mmol/L (3.5-5.1); SODIUM 141 mmol/L (136-145); TCO2 21 mmol/L (25-35); TOTAL BILIRUBIN 1.93 mg/dL (0.20-1.00); TOTAL PROTEIN 6.6 g/dL (6.3-8.3)
--- NOTE | 2019-06-01 07:29 | HISTORY AND PHYSICAL ---
HISTORY OF PRESENT ILLNESS: Ms. Rosanna Baum is a 73-year-old lady with a history of multiple medical problems including paroxysmal atrial fibrillation, type 2 insulin-dependent diabetes mellitus INCOMPLETE REPORT -- DICTATION STOPPED HERE cc: Velia Yoo MD
--- NOTE | 2019-06-01 07:45 | HISTORY AND PHYSICAL ---
HISTORY OF PRESENT ILLNESS: Mrs. 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 She presented to the ER with complaint of progressive confusion, disorientation and sedation. The family reported that she had not had any nausea vomiting, fever, chills or symptoms suggestive of a urinary tract infection. She had not taken lactulose or Xifaxan in 24 hours. She kept stating over and over that she needed to go to the bathroom. She does have a history of paroxysmal atrial fibrillation. She remains in normal sinus rhythm. Her heart rate has been in the 70s and 80s on flecainide. PAST MEDICAL HISTORY: As above. PAST SURGICAL HISTORY: TIPS procedure, tonsillectomy, cervical fusion, cholecystectomy, hysterectomy and cataract surgery. ALLERGIES: Dopamine. Shrimp. FAMILY HISTORY: Noncontributory. SOCIAL HISTORY: She denies the use of tobacco, alcohol, or illicit drugs. MEDICATIONS: 1. Aspirin 81 mg daily. 2. B12 1000 mcg daily. 3. Tambocor 25 mg b.i.d. 4. Lasix 40 mg every other day. 5. Insulin glargine 6 units subcutaneously daily. 6. Lactulose 10 mils b.i.d. 7. Levothyroxine 112 mcg daily. 8. Singulair 10 mg daily. 9. Pantoprazole 40 mg daily. 10. KCl 8 mEq daily. 11. Xifaxan 550 mg b.i.d. 12. Tramadol 50 mg q.6 hours p.r.n. pain. REVIEW OF SYSTEMS: She denies any recent weight gain or weight loss.HEENT: No loss of visual or auditory acuity. CV: No chest pain, palpitations, or anginal equivalents. Pulmonary: No shortness of breath, PND or orthopnea. GI: No reflux, dysphagia, melena, hematochezia, change in bowel habits, or rectal bleeding. Endocrine: No polyuria. No polydipsia. No cold or heat intolerance. Skin: No easy bruisability. : No leakage of urine with coughing or laughing. Neurologic: No migraines or seizures. IMPRESSION: General: This is a chronically ill-appearing 73-year-old lady. She is confused and disoriented. She does not follow simple commands. Vital Signs: Temperature 98.1 degrees, pulse 87, respirations 14 and BP 142/93. HEENT: Fundi with arteriolar wall thickening. Pupils equal, round, and reactive to light. Extraocular eye movements intact. Neck: Supple. No masses, JVD or bruits. CV: Regular rate and rhythm. Lungs: Clear. Abdomen: Soft, nontender with active bowel sounds. Extremities: Without edema. Skin: No palpable purpura. Genitourinary and Rectal: Deferred. Neurologic: She moves all extremities grossly. DTRs are 2+ and symmetric. She is confused and disoriented, but is able to tell us her name. ASSESSMENT AND PLAN: 1. Hepatic encephalopathy secondary to underlying cirrhosis due to nonalcoholic steatohepatitis. Since having her TIPS procedure because of the persistent ascites, she has had increasing episodes of hepatic encephalopathy. She is awake enough in the ER that I believe we can safely give her lactulose 30 mils x1 dose. We will continues Xifaxan 550 mg b.i.d., and lactulose 10 mL b.i.d. We will recheck an ammonia level in the morning. CT scan of the brain demonstrated no evidence of an acute stroke or hemorrhage. She had chronic white matter changes. A chest x-ray was clear. Urinalysis was clear. There does not appear to be any evidence of infection. 2. Paroxysmal atrial fibrillation. She remains in normal sinus rhythm. We will continue Tambocor 25 mg b.i.d. 3. Type 2 insulin-dependent diabetes mellitus. We will place her on pattern sugars and a Humulin R sliding scale. Once she is more alert, we will advance her diet and resume her regular home dosage of insulin. Given her comorbid conditions and clinical presentation, I believe that admission to the hospital is both reasonable and necessary. I anticipate that she will be in the hospital for at least 2 midnights, and I will therefore place her in inpatient status. cc: Velia Yoo MD
--- NOTE | 2019-06-01 08:03 | EKG Report ---
Test Performed on : 05/31/2019 2:35:24 PM Test Reason : ams Blood Pressure : / mmHG Vent. Rate : 081 BPM Atrial Rate : 081 BPM P-R Int : 218 ms QRS Dur : 112 ms QT Int : 416 ms P-R-T Axes : 069 044 038 degrees QTc Int : 483 ms Sinus rhythm. with 1st degree AV block. with premature supraventricular complexes. Septal infarct (cited on or before 16-MAY-2019) Abnormal ECG When compared with ECG of 18-MAY-2019 07:03, premature supraventricular complexes. are now present Unconfirmed Result
[2019-06-01] MEDS ORDERED: KLOR-CON PO SCH (09:00)
[2019-06-01] MEDS: SINGULAIR PO SCH (09:09)
[2019-06-01] MEDS: TAMBOCOR PO SCH ×2 (09:09→20:46)
[2019-06-01] MEDS: LACTULOSE PO SCH ×2 (09:10→20:46)
[2019-06-01] MEDS: ASPIRIN PO SCH (09:10)
[2019-06-01] MEDS: VITAMIN B-12 PO SCH (09:10)
[2019-06-01] MEDS: XIFAXAN PO SCH (12:11)
[2019-06-01] MEDS: LANTUS INSULIN SUBQ SCH (20:53)
[2019-06-01] MEDS: ULTRAM PO PRN (23:38)
[2019-06-02] MEDS: SYNTHROID PO SCH (06:34)
[2019-06-02] MEDS: PROTONIX PO SCH (06:34)
[2019-06-02] MEDS: LACTULOSE PO SCH ×2 (08:42→21:29)
[2019-06-02] MEDS: MICRO-K PO SCH (08:43)
[2019-06-02] MEDS: VITAMIN B-12 PO SCH (08:43)
[2019-06-02] MEDS: ASPIRIN PO SCH (08:43)
[2019-06-02] MEDS: TAMBOCOR PO SCH ×2 (08:43→21:31)
[2019-06-02] MEDS: SINGULAIR PO SCH (08:43)
[2019-06-02] MEDS: HUMULIN R SUBQ SCH ×4 (08:50→21:19)
[2019-06-02] MEDS ORDERED: LASIX PO SCH (09:00)
[2019-06-02] MEDS: XIFAXAN PO SCH (11:44)
[2019-06-02] MEDS ORDERED: DESYREL PO PRN (19:27)
[2019-06-02] MEDS ORDERED: ROBAXIN PO PRN (20:50)
--- NOTE | 2019-06-02 21:14 | PROGRESS NOTE ---
DATE: 06/02/2019 SUBJECTIVE: The patient was admitted on 05/31/2019 with alteration of mental status. The diagnosis of hepatic encephalopathy was made secondary to an elevated ammonia level. The patient was given an immediate dose of lactulose. With this, the patient has achieved some improvement. This morning, upon my arrival, the patient noted weakness and improved mentation. This evening, the patient had worked with physical therapy during the day with success. Her p.o. intake has been reasonable. She denies fevers, chills, nausea, vomiting, shortness of breath or chest discomfort. Her overall condition is approaching baseline. OBJECTIVE: T-max is 98.2 degrees, heart rate 70 to 79, respirations 14 to 18, blood pressure 148 to 166 over 54 to 104.General: Chronically ill appearing, no acute distress. Cardiovascular: Regular rate and rhythm. No significant murmurs, rubs or gallops. Pulmonary: Clear to auscultation bilaterally. Abdomen soft, nontender, nondistended. Positive bowel sounds. Extremities: Moves all extremities well. No significant clubbing, cyanosis or edema. Dermatologic evaluation reveals no evidence of rash. LABORATORY DATA: None. ASSESSMENT AND PLAN: 1. Hepatic encephalopathy: Clinically, the patient has had improvement. A long discussion was held with the patient and with the patient's family. It appears she has had accidental noncompliance, which may be contributing to her frequent episodes of hepatic encephalopathy. For now, we will continue her current dosage of Xifaxan. We will increase lactulose to 15 mL twice daily. We will encourage medication compliance. The importance of this was stressed. 2. Diabetes: Blood sugars are reasonably controlled with her home medication regimen. 3. Atrial fibrillation: The patient remained in a sinus-generated rhythm with low-dose flecainide therapy. She is not a candidate for anticoagulation secondary to her underlying cirrhosis and significant fall risk. 4. Lower extremity pain: We will resume as-needed Robaxin therapy. We will continue as-needed tramadol. Once again, this will be followed. 5. Profound weakness: Physical therapy was initiated today. We will plan to continue this as an outpatient. 6. Disposition: At this point, the patient continues to require retirement care in a hospital setting. We will plan discharge home once appropriate. cc: MD Velia Paredes MD
[2019-06-02] MEDS: LANTUS INSULIN SUBQ SCH (21:32)
[2019-06-02] MEDS: ULTRAM PO PRN (23:04)
[2019-06-03] MEDS: SYNTHROID PO SCH (06:00)
[2019-06-03] MEDS: PROTONIX PO SCH (06:00)
[2019-06-03] MEDS: HUMULIN R SUBQ SCH ×3 (06:12→16:11)
[2019-06-03] MEDS: TAMBOCOR PO SCH (08:24)
[2019-06-03] MEDS: ASPIRIN PO SCH (08:24)
[2019-06-03] MEDS: SINGULAIR PO SCH (08:24)
[2019-06-03] MEDS: VITAMIN B-12 PO SCH (08:24)
[2019-06-03] MEDS: MICRO-K PO SCH (08:25)
[2019-06-03] MEDS: LACTULOSE PO SCH (08:26)
[2019-06-03 08:27] LABS: BASO# 0.03 X1000 (0.0-0.2); BASO% 0.7 % (0.0-0.8); EOS# 0.33 X1000 (0.0-0.7); EOS% 7.2 % (0.0-10.0); HEMATOCRIT 29.3 % (37.0-47.0); LYMPH# 1.59 X1000 (1.2-3.4); LYMPH% 34.8 % (20.5-51.1); MCH 28.8 PG (27-31); MCHC 34.1 g/dL (33-37); MCV 84.4 FL (81-99); MONO# 0.47 X1000 (0.11-0.59); MONO% 10.3 % (1.7-9.3); MPV 9.1 FL (7.4-10.4); NEUT# 2.15 X1000 (1.4-6.5); PLT 135 X1000 (130-400); RBC 3.47 XMIL (4.2-5.4); WBC 4.57 X1000 (4.8-10.8)
[2019-06-03 08:55] LABS: AGAP 9; ALB/GLOB RATIO 0.9; ALBUMIN 2.8 g/dL (3.5-5.0); ALKALINE PHOSPHATASE 81 U/L (32-104); BUN 19 mg/dL (8-22); CALCIUM 8.5 mg/dL (8.8-10.2); CHLORIDE 109 mmol/L (98-107); COSMO 288; CREATININE 0.8 mg/dL (0.5-0.9); ESTIMATED GFR > 60; GLUCOSE 87 mg/dL (70-104); GOT 27 U/L (10-30); GPT 16 U/L (10-36); POTASSIUM 3.5 mmol/L (3.5-5.1); SODIUM 144 mmol/L (136-145); TCO2 26 mmol/L (25-35); TOTAL PROTEIN 5.9 g/dL (6.3-8.3)
[2019-06-03] MEDS: XIFAXAN PO SCH (11:36)
[2019-06-03 15:40] VITALS: BP 149/47
--- NOTE | 2019-06-04 00:09 | DISCHARGE SUMMARY ---
ADMISSION DATE: 05/31/2019 DISCHARGE DATE: 06/03/2019 ADMISSION DIAGNOSIS: 1. Hepatic encephalopathy. 2. Paroxysmal atrial fibrillation. 3. Type 2 diabetes. DISCHARGE DIAGNOSES: 1. Hepatic encephalopathy, improving. 2. Diabetes, present on arrival. 3. Atrial fibrillation, present on arrival. 4. Lower extremity pain, improved. 5. Profound weakness, improving. CONSULTATIONS: None. PROCEDURES: 1. A chest x-ray was performed on 05/31/2019 which revealed improvement from prior. 2. CT scan of the head was performed on 05/31/2019 which revealed a negative examination. HISTORY AND PHYSICAL EXAMINATION: See admit note. PHYSICAL EXAMINATION PRIOR TO DISCHARGE: Vital Signs: Temperature 97.6 degrees, heart rate 75, respirations 16, blood pressure is 149/47. General: Chronically ill appearing, no acute distress. Cardiovascular: Regular rate and rhythm. No significant murmurs, rubs, or gallops. Pulmonary: Clear to auscultation bilaterally. Abdomen: Soft, nontender, nondistended. Positive bowel sounds. Extremities: Moves all extremities well. No significant clubbing, cyanosis, or edema. Dermatologic: Evaluation reveals no evidence of rash. LABORATORY DATA: White blood cell count 4.57, hemoglobin 10.0, hematocrit 29.3, platelet count is 135,000. Sodium 144, potassium 3.5, chloride 109, bicarbonate 26, BUN 19, creatinine 0.8, glucose 87, calcium 8.5, total bilirubin 1.80, total protein 5.9, albumin 2.8, alkaline phosphatase 81, AST 27, ALT 16, ammonia 79. HOSPITAL COURSE: Patient was admitted as per history and physical examination. Hospital course per condition is as follows: 1. Hepatic encephalopathy. Patient has advancing nonalcoholic cirrhosis. She has required a TIPS procedure to control volume. She has, unfortunately, experienced multiple episodes of hepatic encephalopathy despite Xifaxan and lactulose therapy. Upon admission, ammonia level was noted to be grossly elevated. The patient was noted to have confusion. The patient was given a dose of lactulose. This was continued while hospitalized. Xifaxan was resumed. While hospitalized, patient's condition improved considerably. At time of discharge, ammonia level was 79. The patient will be discharged home on lactulose and Xifaxan therapy. She is to increase her lactulose to 15 mL every 12 hours. Should she not have regular bowel movements, she is to increase this to 20 twice daily. In addition to her advancing cirrhosis, question was also raised in regards to accidental noncompliance. Home Health will assist in routine medications. 2. Diabetes. Patient's blood sugars remained reasonably controlled on her home diabetic regimen. 3. Atrial fibrillation. Patient remained in a sinus-generated rhythm while hospitalized with flecainide therapy. 4. Lower extremity pain. Patient's pain continues to be intermittent, primarily at nighttime. Her oxycodone was held. She was continued on tramadol and as needed Robaxin. Symptoms remained reasonably controlled. 5. Profound weakness. Physical Therapy was consulted. The patient achieved improvement throughout hospitalization. At time of discharge, patient was ambulating independently with a walker. We will plan physical therapy as an outpatient. 6. Discharge condition: Good. DISPOSITION: Discharged to home. MEDICATIONS: 1. Trazodone 100 mg 1/2 to 1 tablet at bedtime as needed. 2. Protonix 40 mg daily. 3. Robaxin 500 mg 3 times daily as needed. 4. Singulair 10 mg daily. 5. Tylenol 650 mg every 6 hours as needed. 6. Tramadol 50 mg every 6 hours as needed. 7. Vitamin B12 1000 mcg daily. 8. Aspirin 81 mg daily. 9. Levothyroxine 112 mcg daily. 10. Zinc sulfate 220 mg daily. 11. Flecainide 25 mg twice daily. 12. Xifaxan 550 mg daily at noon. 13. Lantus 6 units at bedtime. 14. Lasix 40 mg every other day. 15. Potassium chloride 8 mEq every other day. 16. Lactulose 15 mL twice daily and increase to 20 mL twice daily if needed for routine bowel movements. FOLLOWUP: The patient is to follow up with me in approximately 1 to 2 weeks. cc: MD Velia Paredes MD
== END 2019-06-03 17:24 | disposition home health service (06) | DRG 443 ==
LOC: SUPCPDRO → ED 13:34 → 3N 17:28
PROVIDERS: ADMIT Internal Medicine; ATTEND Internal Medicine
CPT/HCPCS: 70450; 71010; 71045; 80053; 81001; 82140; 82550; 82805; 82948; 83605; 84484; 85025; 85610; 85730; 93005; 97162; 97530; 99285; A9270; J1815; XXXXX

== ENCOUNTER 2019-08-19 17:48 | Inpatient (IN) ==
--- NOTE | 2019-08-19 18:52 | PROVIDER DOCUMENTATION ---
This chart was entered by Sivan Lou Scribe, acting as scribe for Harrison Matias MD. HPI-General Adult - General Source: family - History of Present Illness -Gen Adult Nature of Presenting Problems: pt is a 73 yowf rpting to er w/family sts ams and increased confusion starting this am. family sts pt went to get her hair done this am, didn't tell anyone and became too weak in her legs to push gas pedal in vehicle, family had to go get pt. family asked pt what she was doing today and she said "going to [facility]." sts pt had been in hospital 2 x since january for similar symptoms. pt picked up remote tonight and thought it was phone ringing and tried to answer it. pt is oriented to self but thinks today is 1945. pt born in 1944. denies fever and chills. pt has allergy to dilaudid and dopamine. Location of Pain/Injury: reports: lower extremity (bilat leg weakness) Pain Radiation: reports: no radiation Onset/Duration: reports: this morning Associated Symptoms: reports: denies symptoms. denies: fever/chills Similar Symptoms Previously?: Yes (2x since january ) <Harrison Matias - Last Filed: 08/19/19 18:51> <Richy Onofre - Last Filed: 08/19/19 21:46> - General Chief Complaint: Altered Mental Status Stated Complaint: CONFUSED Time Seen by Provider: 08/19/19 18:13 Allergies/Adverse Reactions: Patient Allergies Allergy/AdvReac Type Severity Reaction Status Date / Time dopamine [Dopamine] Allergy Severe ANAPHYLAXIS Verified 08/19/19 20:40 Home Medications: Home Medication List Medication Instructions Recorded Confirmed Last Taken Type Acetaminophen [Tylenol] 650 mg PO Q6H PRN PRN tab 04/29/19 08/19/19 Unknown Rx Aspirin 81 mg PO DAILY chewtab 04/29/19 08/19/19 05/30/19 09:00 Rx Cyanocobalamin [Vitamin B-12] 1,000 microgm PO DAILY tab 04/29/19 08/19/19 05/30/19 09:00 Rx Levothyroxine [Synthroid] 112 microgm PO DAILY@0700 tab 04/29/19 08/19/19 05/30/19 09:00 Rx Montelukast [Singulair] 10 mg PO DAILY tab 04/29/19 08/19/19 05/30/19 09:00 Rx Pantoprazole [Protonix] 40 mg PO DAILY@0700 tab 04/29/19 08/19/19 05/30/19 07:00 Rx Zinc Sulfate 220 mg PO DAILY 05/12/19 08/19/19 05/30/19 09:00 History Rifaximin [Xifaxan] 550 mg PO DAILY@1200 tab 05/18/19 08/19/19 05/30/19 12:00 Rx Furosemide [Lasix] 40 mg PO EVERY OTHER DAY #0 tab 06/03/19 08/19/19 Unknown Rx Lactulose 15 ml PO BID udc 06/03/19 08/19/19 05/30/19 21:00 Rx Potassium Chloride E.r. [Micro-K] 8 meq PO EVERY OTHER DAY #30 cap 06/03/19 08/19/19 05/30/19 09:00 Rx Flecainide [Tambocor] 20 mg PO BID 08/19/19 08/19/19 Unknown History Methocarbamol [Robaxin] 50 mg PO TID PRN PRN 08/19/19 08/19/19 Unknown History Trazodone [Desyrel] 75 mg PO HS PRN PRN 08/19/19 08/19/19 Unknown History Review of Systems - Adult - REVIEW OF SYSTEMS - ADULT ROS:: ROS per family Constitutional: reports: no symptoms reported. denies: chills, fever Eyes: reports: no symptoms reported Ears, Nose, Mouth & Throat: reports: no symptoms reported Cardiovascular: reports: no symptoms reported Respiratory: reports: no symptoms reported Gastrointestinal: reports: no symptoms reported Genitourinary: reports: no symptoms reported Musculoskeletal: reports: no symptoms reported Integumentary: reports: no symptoms reported Neurological: reports: see HPI, other (ams/confusion). denies: dizziness/vertigo, headache/migraines, loss of balance Psychiatric: reports: no symptoms reported Endocrine: reports: no symptoms reported Hematologic/Lymphatic: reports: no symptoms reported Allergic/Immunologic: reports: no symptoms reported All Other Systems: Reviewed and Negative <Harrison Matias - Last Filed: 08/19/19 18:51> Past History - Adult - PAST MEDICAL HISTORY-ADULT Review of Records: reports: Old Records Reviewed, Nursing Assessment Review, Medications Reviewed, Social history reviewed & non-contributory. Major Childhood Illnesses: reports: denies history Cardiovascular: reports: HTN Respiratory: reports: denies history Gastrointestinal: reports: denies history Obstetrical/Gynecological: reports: denies history Genitourinary: reports: kidney stones Musculoskeletal: reports: denies history Neurological: reports: denies history Endocrine/Immune: reports: Diabetes, thyroid disorder Other Conditions: reports: denies history - PRIOR SURGERIES/PROCEDURES Surgical/Procedure History: reports: cholecystectomy, tonsillectomy, other (cystoscopy) - PRIOR HOSPITALIZATIONS Prior Hospitalizations: reports: for other non-related - IMMUNIZATION STATUS Childhood Immunizations: See Nurse Assessment Flu Vaccine: See Nurse Assessment - FAMILY HISTORY Family History: reviewed, not pertinent - SOCIAL HISTORY Smoking: non-smoker Substance Use: none/never <Harrison Matias - Last Filed: 08/19/19 18:51> Physical Exam-General - PHYSICAL EXAM-ADULT Initial Vital Signs Reviewed: Yes - CONSTITUTIONAL General Appearance: appears well, alert, no apparent distress. negative: anxious, lethargic, combative - EYES Eyes: PERRL/EOMI, pink conjunctivae - HEAD, EARS, NOSE, MOUTH & THROAT HENMT: normocephalic/atraumatic, moist mucous membranes, normal ENT inspection - NECK Neck: non-tender, full range of motion, supple, normal inspection - RESPIRATORY Respiratory: chest non-tender, lungs clear, normal breath sounds - CARDIOVASCULAR Cardiovascular: normal peripheral pulses, regular rate, rhythm, no edema, no gallop, no JVD, systolic murmur (3/6 jm). negative: no murmur - GASTROINTESTINAL (ABDOMEN) Abdominal Exam: normal bowel sounds, non tender, soft - LYMPHATIC Lymphatic: no adenopathy - MUSCULOSKELETAL Back Exam: normal inspection, no CVA tenderness, no vertebral tenderness Extremity: normal range of motion, non-tender, normal inspection, no pedal edema , no calf tenderness, normal capillary refill. negative: calf tenderness, pedal edema, slow capillary refill, swelling, tenderness Peripheral Pulses: dorsalis-pedis (R): 2+, dorsalis-pedis (L): 2+ - SKIN Integumentary: normal color, normal turgor, warm/dry - NEUROLOGIC Neurologic: grossly normal, no motor/sensory deficits, other (bow tacker II-XII tested norm). negative: abnormal cerebellar tests, abnormal bow tacker II-XII, aphasia, motor weakness, sensory deficit - PSYCHIATRIC Psych/Mental Status: normal mood/affect, normal thought content, normal thought process, oriented x 3 (pt answered questions approprieately), other. negative: disoriented x 3, paranoid, tearful <Harrison Matias - Last Filed: 08/19/19 18:51> Progress - PLAN OF CARE/RESULTS Progress/Plan/Lab Results: Vital Signs - 8 hr 08/19/19 17:49 Temperature 98.1 F Pulse Rate 69 Respiratory Rate 20 Blood Pressure 194/73 O2 Sat by Pulse Oximetry 97 - EKG 1 Time of EKG reading by physician:: 18:10 EKG Read and Signed by:: Harrison Matias EKG Interpretation (*Must complete 3 of following elements*): Abnormal Rate: 70 Rhythm: SR w/ 1st degree AV block [place]: normal ST Wave: normal Comments: poor r wave progression - CHANGE OF SHIFT REPORT (ED Provider) 1 Report Given and Care Transferred to:: Dr. Onofre Time of Transfer: 19:00 Items Pending: Labs, XRAY Results <Harrison Matias - Last Filed: 08/19/19 18:51> - PLAN OF CARE/RESULTS Progress/Plan/Lab Results: Vital Signs - 8 hr 08/19/19 17:49 Temperature 98.1 F Pulse Rate 69 Respiratory Rate 20 Blood Pressure 194/73 O2 Sat by Pulse Oximetry 97 Laboratory Results - last 24 hr 08/19/19 08/19/19 08/19/19 19:30 19:42 19:42 WBC 4.15 L RBC 3.86 L Hgb 11.2 L Hct 33.0 L MCV 85.5 MCH 29.0 MCHC 33.9 RDW Std Deviation 15.7 H Plt Count 117 L MPV 8.7 Immature Gran % (Auto) 0.0 Neut % (Auto) 58.9 Lymph % (Auto) 28.4 [place] % (Auto) 7.2 Eos % (Auto) 4.8 Baso % (Auto) 0.7 Immature Gran # (Auto) 0.00 Neut # (Auto) 2.44 Lymph # (Auto) 1.18 L Sierra # (Auto) 0.30 Eos # (Auto) 0.20 Baso # (Auto) 0.03 Sodium 141 Potassium 3.8 Chloride 104 Carbon Dioxide 26 Anion Gap 11 BUN 23 H Creatinine 0.7 Estimated GFR/1.73 m2 > 60 BUN/Creatinine Ratio 33 Glucose 160 H Calculated Osmolality 288 Calcium 8.3 L Total Bilirubin 1.37 H AST 34 H ALT 20 Alkaline Phosphatase 102 Ammonia 172 H Total Protein 6.4 Albumin 3.0 L Globulin 3.4 Albumin/Globulin Ratio 0.9 Urine Source Urine Color Urine Turbidity Urine pH Ur Specific Disney Urine Protein Ur Glucose (Stick) Ur Ketones (Stick) Urine Blood Urine Nitrite Urine Bilirubin Urobilinogen Dipstick Urine Leukocytes Urine WBC (Auto) Urine RBC (Auto) U Epithel Cells (Auto) Urine Bacteria (Auto) 08/19/19 21:13 WBC RBC Hgb Hct MCV MCH MCHC RDW Std Deviation Plt Count MPV Immature Gran % (Auto) Neut % (Auto) Lymph % (Auto) Sierra % (Auto) Eos % (Auto) Baso % (Auto) Immature Gran # (Auto) Neut # (Auto) Lymph # (Auto) Sierra # (Auto) Eos # (Auto) Baso # (Auto) Sodium Potassium Chloride Carbon Dioxide Anion Gap BUN Creatinine Estimated GFR/1.73 m2 BUN/Creatinine Ratio Glucose Calculated Osmolality Calcium Total Bilirubin AST ALT Alkaline Phosphatase Ammonia Total Protein Albumin Globulin Albumin/Globulin Ratio Urine Source CATH Urine Color YELLOW Urine Turbidity CLEAR Urine pH 7.5 Ur Specific Disney 1.013 Urine Protein 50 A Ur Glucose (Stick) NEGATIVE Ur Ketones (Stick) NEGATIVE Urine Blood SMALL A Urine Nitrite NEGATIVE Urine Bilirubin NEGATIVE Urobilinogen Dipstick NORMAL Urine Leukocytes TRACE A Urine WBC (Auto) <10 Urine RBC (Auto) 10-20 A U Epithel Cells (Auto) <10 Urine Bacteria (Auto) NEGATIVE Orders Category Date Time Status CHEST-1 VIEW [RAD] Stat Exams 08/19/19 18:[address] HEAD W/O CONTRAST [CT] Stat Exams 08/19/19 18:25 Completed AMMONIA [CHEM] Stat Lab 08/19/19 19:30 Completed CBC WITH DIFF [HEME] Stat Lab 08/19/19 19:42 Completed COMPREHENSIVE METABOLIC PANEL [CHEM] Stat Lab 08/19/19 19:42 Completed URINALYSIS W/POSS RFLX CULT [URINALYSIS] Stat Lab 08/19/19 21:13 Completed URINE CULTURE [RM] Routine Lab 08/19/19 21:25 Received Pt signed out to me by Dr. Matias, pt has hepatic encephalopathy, spoke with Dr. Vieira and will admit Result Diagrams: 08/19/19 19:42 08/19/19 19:42 <Richy Onofre - Last Filed: 08/19/19 21:46> Departure <Harrison Matias - Last Filed: 08/19/19 18:51> - Departure Date of Disposition Decision: 08/19/19 Time of Disposition Decision: 21:45 Certified Medical Emergency: Emergent - Critical Care Note This patient required my direct & personal management of CC.: No <Richy Onofre - Last Filed: 08/19/19 21:46> - Departure DIAGNOSIS: Hepatic encephalopathy Disposition: ADMITTED INPATIENT 09 Condition: Stable Referrals and Follow-Ups: Giovani Mariee MD [Primary Care Provider] - Attestation - Physician/ CHRISTOPHE Attestation Patient care was provided by Advanced Practice Provider:: No The physician spent face to face time with patient:: Yes Advanced Practice Provider documentation review:: Supervising physician onsite and consulted in the evaluation and care of this patient. The physician did have a face to face encounter with the patient. <Harrison Matias - Last Filed: 08/19/19 18:51> This chart was documented by the indicated scribe, (Sivan Lou Scribe) and accurately reflects the services I performed and decisions made by me, Harrison Matias MD, as attested by the provider's signature.
--- NOTE | 2019-08-19 19:01 | Diag Imaging Result Doc PS360 ---
EXAM: CT HEAD W/O CONTRAST HISTORY: AMS TECHNIQUE: CT head without contrast COMPARISON: 05/04/2019 FINDINGS: No parenchymal hemorrhage. No epidural or subdural hematoma. No subarachnoid hemorrhage. No mass identified on this noncontrasted exam. No hydrocephalus. No sinus opacification. IMPRESSION: No hemorrhage. Negative brain CT without contrast. This exam was performed using automated exposure control, adjustment of mA or kV according to patient size, and/or use of iterative reconstruction technique. Electronically signed by Ham Soto 08/19/2019 6:59 PM
--- NOTE | 2019-08-19 19:05 | Diag Imaging Result Doc PS360 ---
EXAM: CHEST-1 VIEW HISTORY: AMS TECHNIQUE: Chest single view COMPARISON: 05/31/2019 FINDINGS: There is a small left pleural effusion. The heart is mildly prominent. Left basilar atelectasis. No consolidation. IMPRESSION: Mild cardiomegaly with a small left pleural effusion. Electronically signed by Ham Soto 08/19/2019 7:02 PM
[2019-08-19 19:47] LABS: BASO# 0.03 X1000 (0.0-0.2); BASO% 0.7 % (0.0-0.8); EOS% 4.8 % (0.0-10.0); HEMOGLOBIN 11.2 g/dL (12.0-16.0); LYMPH# 1.18 X1000 (1.2-3.4); LYMPH% 28.4 % (20.5-51.1); MCHC 33.9 g/dL (33-37); MCV 85.5 FL (81-99); MONO% 7.2 % (1.7-9.3); MPV 8.7 FL (7.4-10.4); NEUT# 2.44 X1000 (1.4-6.5); NEUT% 58.9 % (42.2-75.2); PLT 117 X1000 (130-400); RBC 3.86 XMIL (4.2-5.4); RDW 15.7 % (11.5-14.5); WBC 4.15 X1000 (4.8-10.8)
[2019-08-19 20:30] LABS: AGAP 11; ALB/GLOB RATIO 0.9; ALKALINE PHOSPHATASE 102 U/L (32-104); BUN 23 mg/dL (8-22); CALCIUM 8.3 mg/dL (8.8-10.2); CHLORIDE 104 mmol/L (98-107); COSMO 288; CREATININE 0.7 mg/dL (0.5-0.9); ESTIMATED GFR > 60; GLUCOSE 160 mg/dL (70-104); GOT 34 U/L (10-30); GPT 20 U/L (10-36); POTASSIUM 3.8 mmol/L (3.5-5.1); SODIUM 141 mmol/L (136-145); TCO2 26 mmol/L (25-35); TOTAL BILIRUBIN 1.37 mg/dL (0.20-1.00); TOTAL PROTEIN 6.4 g/dL (6.3-8.3)
[2019-08-19 21:19] LABS: URINE SOURCE CATH
[2019-08-19 21:20] LABS: BILIRUBIN URINE NEGATIVE (NEGATIVE); BLOOD URINE SMALL (NEGATIVE); COLOR YELLOW; GLUCOSE URINE NEGATIVE (NEGATIVE); KETONE URINE NEGATIVE (NEGATIVE); LEUKOCYTES URINE TRACE (NEGATIVE); NITRITE URINE NEGATIVE (NEGATIVE); PH URINE 7.5; PROTEIN URINE 50 mg/dL (NEGATIVE); SP GRAVITY URINE 1.013; TURBIDITY URINE CLEAR (CLEAR); UROBILINOGEN URINE NORMAL (NORMAL)
[2019-08-19 21:22] LABS: UR EPITHELIAL CELLS <10 /HPF (<10); URINE BACTERIA NEGATIVE /HPF; URINE WBC <10 /HPF (<10)
--- NOTE | 2019-08-20 01:26 | HISTORY AND PHYSICAL ---
PRIMARY CARE PHYSICIAN: Giovani Mariee. CHIEF COMPLAINT: Altered mental status, confusion. HISTORY OF PRESENTING ILLNESS: A 73-year-old female with a history of end-stage liver disease, BANKS, paroxysmal atrial fibrillation and diabetes mellitus type 2, who had presented to emergency department with several days history of worsening confusion and mental status changes. Patient's family states that she has been hospitalized previously and had a previous TIPS procedure. As per family, she was getting more disoriented and confused and subsequently they brought to the emergency department. In the ED, she was evaluated. She was found to have elevated ammonia level and due to these presenting symptoms she will require admission for further management. At the time of my examination, she was able to be aroused and she answered a few questions. She denied any fever, chills, chest pain, shortness of breath or any weight changes. PAST MEDICAL HISTORY: Includes end-stage liver disease, BANKS, paroxysmal atrial fibrillation, diabetes mellitus type 2, hypothyroidism. PAST SURGICAL HISTORY: TIPS procedure, cervical fusion, cholecystectomy, hysterectomy, cataract surgery. ALLERGIES: Dopamine and shrimp. CURRENT MEDICATIONS: She does not recall and nursing staff will reconcile. However, I was able to find a few notes stating that she was taking pantoprazole 40 mg p.o. daily, levothyroxine 112 mcg p.o. daily, rifaximin 550 mg p.o. daily, Lasix 40 mg p.o. daily, flecainide 20 mg 1 full tablet daily. SOCIAL HISTORY: No history of smoking, alcohol or illicit drug use. FAMILY HISTORY: No history of coronary artery disease. REVIEW OF SYSTEMS: Fourteen point review of system as listed in HPI. Other systems negative. PHYSICAL EXAMINATION: GENERAL: Cooperative, friendly female. She is resting more comfortably now. VITAL SIGNS: Temperature 98.1 degrees, pulse 69, respirations 20, blood pressure 194/73. HEENT: Atraumatic, normocephalic. Extraocular movements intact. PERRLA. NECK: No masses. CHEST: Clear to auscultation. CARDIOVASCULAR: Regular rate and rhythm. ABDOMEN: Soft, positive bowel sounds. EXTREMITIES: No edema. NEUROLOGIC: She is awake, alert, oriented x1. GENITOURINARY: No bladder distention. SKIN: Warm. LABORATORIES AND STUDIES: WBCs 4.15, hemoglobin 11.2, hematocrit 32.0, platelets 117,000. Sodium 141, potassium 3.8, chloride 104, CO2 is 26, BUN is 23, creatinine 0.7, glucose 160. Ammonia level is 172. UA, nitrite negative. CT of the head, no hemorrhage, negative brain CT. ASSESSMENT: A 73-year-old female with a history of end-stage liver disease, nonalcoholic steatohepatitis, paroxysmal atrial fibrillation, diabetes mellitus type 2, status post transjugular intrahepatic portosystemic shunt procedure, who had presented to the emergency department with several days history of progressive confusion. As per family, she was altered. She was evaluated in the emergency department and due to her elevated ammonia levels it was thought that she will require admission for further management. 1. Altered mental status/hepatic encephalopathy. 2. Paroxysmal atrial fibrillation. 3. Diabetes mellitus type 2. PLAN: 1. We will admit patient to medical floor with telemetry. 2. Continue with neuro checks. 3. We will restart her lactulose. 4. Consult GI. 5. Monitor patient on telemetry. 6. We will monitor blood glucose and put patient on sliding scale insulin regimen. 7. We will restart her home medications. 8. We will put patient on DVT prophylaxis with SCD. 9. We will continue to follow, and reassess and make further recommendation based on patient's clinical course. cc: Ulises Vieira MD MTDD
[2019-08-20] MEDS: NS 1,000 ML IV SCH ×2 (01:58→13:52)
[2019-08-20] MEDS: SYNTHROID PO SCH (06:19)
[2019-08-20] MEDS: PROTONIX PO SCH (06:19)
--- NOTE | 2019-08-20 07:10 | EKG Report ---
Test Performed on : 08/19/2019 5:59:51 PM Test Reason : ED. NO EKG ORDER FOR MUSE Blood Pressure : / mmHG Vent. Rate : 070 BPM Atrial Rate : 070 BPM P-R Int : 214 ms QRS Dur : 102 ms QT Int : 422 ms P-R-T Axes : 071 049 038 degrees QTc Int : 455 ms Sinus rhythm. with 1st degree AV block. Anterior infarct (cited on or before 16-MAY-2019) Abnormal ECG When compared with ECG of 31-MAY-2019 14:35, (Unconfirmed) premature supraventricular complexes. are no longer present Questionable change in initial forces of Anterior leads T wave amplitude has decreased in Anterior leads Unconfirmed Result
[2019-08-20 07:27] LABS: BASO# 0.02 X1000 (0.0-0.2); BASO% 0.4 % (0.0-0.8); EOS# 0.18 X1000 (0.0-0.7); HEMATOCRIT 32.7 % (37.0-47.0); HEMOGLOBIN 11.1 g/dL (12.0-16.0); LYMPH# 1.44 X1000 (1.2-3.4); LYMPH% 32.1 % (20.5-51.1); MCH 28.9 PG (27-31); MCHC 33.9 g/dL (33-37); MCV 85.2 FL (81-99); MONO# 0.33 X1000 (0.11-0.59); MONO% 7.3 % (1.7-9.3); MPV 8.9 FL (7.4-10.4); NEUT# 2.52 X1000 (1.4-6.5); NEUT% 56.2 % (42.2-75.2); PLT 140 X1000 (130-400); RBC 3.84 XMIL (4.2-5.4); RDW 15.5 % (11.5-14.5); WBC 4.49 X1000 (4.8-10.8)
[2019-08-20 07:42] LABS: AGAP 7; BUN 17 mg/dL (8-22); CALCIUM 8.2 mg/dL (8.8-10.2); CHLORIDE 107 mmol/L (98-107); COSMO 282; CREATININE 0.6 mg/dL (0.5-0.9); ESTIMATED GFR > 60; GLUCOSE 118 mg/dL (70-104); POTASSIUM 3.7 mmol/L (3.5-5.1); SODIUM 140 mmol/L (136-145); TCO2 26 mmol/L (25-35)
[2019-08-20] MEDS ORDERED: TAMBOCOR PO SCH (09:00)
[2019-08-20] MEDS: SINGULAIR PO SCH (10:00)
[2019-08-20] MEDS: ASPIRIN PO SCH (10:00)
[2019-08-20] MEDS: VITAMIN B-12 PO SCH (10:00)
[2019-08-20] MEDS: LACTULOSE PO SCH ×2 (10:00→20:04)
[2019-08-20] MEDS: ZOFRAN IV PRN ×2 (11:02→18:53)
[2019-08-20] MEDS: XIFAXAN PO SCH (11:54)
[2019-08-20] MEDS: TAMBOCOR PO SCH (20:05)
[2019-08-20] MEDS ORDERED: HUMALOG SUBQ SCH (21:00)
--- NOTE | 2019-08-20 21:32 | PROGRESS NOTE ---
DATE: 08/20/2019 SUBJECTIVE: The patient's chart was reviewed. In summary, patient was admitted yesterday with alteration of mental status. Full evaluation was pursued in the emergency department. A CT scan of the head returned with no evidence of acute disease. Laboratory data was significant for an ammonia level of 172. The patient was admitted with presumed hepatic encephalopathy. Xifaxan was continued. Lactulose was increased. This morning, upon my arrival, patient continued to have some confusion. She was alert only to person. She was somewhat somnolent. Throughout the day, patient's condition was largely unchanged. This evening, patient is more interactive. Patient is alert to person, place, and situation. She does, however, continue to have some intermittent confused statements. She is currently tolerating a liquid diet. She denies fevers, chills, shortness of breath, or chest discomfort. She has had some nausea after eating this evening. OBJECTIVE: Vital Signs: T-max 98.2 degrees, heart rate 70 to 80, respirations 12 to 20, blood pressure 149 to 197 over 62 to 86. General: Chronically ill appearing, no acute distress. Cardiovascular: Regular rate and rhythm. No significant murmurs, rubs, or gallops. Pulmonary: Clear to auscultation bilaterally. Abdomen: Soft, nontender, nondistended. Positive bowel sounds. Extremities: Moves all extremities well. No significant clubbing, cyanosis, or edema. Dermatologic: Evaluation reveals no evidence of rash. LABORATORY DATA: Sodium 140, potassium 3.7, chloride 107, bicarb 26, BUN 17, creatinine 0.6, glucose 118, calcium 8.2. White blood cell count 4.49, hemoglobin 11.1, hematocrit 32.7, platelet count is 140,000. ASSESSMENT AND PLAN: 1. Hepatic encephalopathy: Clinically, patient has shown some improvement over the course of the last 12 hours. The patient was continued on Xifaxan. Lactulose was increased to 30 mL twice daily. For now, we will continue this dosage. We will recheck ammonia level in the a.m. I appreciate consultation with Dr. Garza. 2. Diabetes: We will continue serial Accu-Cheks. We will start patient on sliding scale insulin. 3. Atrial fibrillation: Patient is in a sinus-generated rhythm with low-dose flecainide. She is not a candidate for anticoagulation secondary to her advanced liver disease. 4. Lower extremity pain: Patient is currently asymptomatic. We will plan to resume Robaxin and tramadol once necessary. 5. Profound weakness: Once the patient's confusion improves, we will plan to initiate physical therapy. 6. Disposition: At this point, patient continues to require senior living care in a hospital setting. We will plan discharge home once appropriate. cc: Giovani Mariee MD
[2019-08-20] MEDS ORDERED: DESYREL PO PRN (22:19)
--- NOTE | 2019-08-20 23:37 | GASTROENTEROLOGY CONSULTATION ---
DATE: 08/20/2019 CONSULTING PHYSICIAN: Kong Garza MD. REASON FOR CONSULTATION: Cirrhosis of the liver, hepatic encephalopathy. HISTORY OF PRESENT ILLNESS: This is a 73-year-old female, known to our practice. She has had several hospital admissions over the last several months for hepatic encephalopathy. She had progressive ascites refractory to paracentesis, and had a TIPS procedure done in the past. Patient has had progressive episodes of hepatic encephalopathy despite being on medications. Per her 's report, he does not know of any change in her medicines. As far as he is concerned, he think she is taking her medication as recommended. They have noticed several days of confusion and wanted to bring her into the hospital before it became worse. He had noticed that she had gotten very weak and was not able to walk. Prior to this occurrence, per report, she had been recently to get her hair done and could not make it home. No reported fever. No reported abdominal pain. PAST MEDICAL HISTORY: End-stage liver disease, cirrhosis of the liver, atrial fibrillation, diabetes type 2, hypothyroidism. PAST SURGICAL HISTORY: TIPS procedure, cervical fusion, cholecystectomy, hysterectomy, cataract surgery. ALLERGIES: Dopamine causing anaphylaxis. HOME MEDICATIONS: 1. Tylenol 650 mg every 6 hours as needed. 2. Aspirin 81 mg daily. 3. Vitamin B12, 1000 mcg daily. 4. Tambocor 20 mg twice a day. 5. Lasix 40 mg every other day. 6. Lactulose 15 mL twice a day. 7. Synthroid 112 mcg daily. 8. Robaxin 50 mg 3 times a day as needed. 9. Singulair 10 mg daily. 10. Protonix 40 mg daily. 11. Potassium 8 mEq every other day. 12. Xifaxan 550 mg daily. 13. Desyrel 75 mg as needed. 14. Zinc 220 mg daily. SOCIAL HISTORY: She lives with her . No reported tobacco or alcohol use. REVIEW OF SYSTEMS: Per history of present illness. PHYSICAL EXAMINATION: Vital Signs: Temperature 98 degrees, pulse 71, respirations 19, blood pressure 170/86. Generally: Patient was asleep, with arousal she did wake up. She was oriented to person and place, but not to month or year. HEENT: Normocephalic, atraumatic. Pupils equal, round, reactive to light. Sclerae nonicteric. Cardiovascular: Regular rate and rhythm. Respiratory: Lung sounds essentially clear. Abdomen: Soft. Positive bowel sounds. No ascites noted. Extremities: No lower extremity edema noted. Neurological: She did arouse and was oriented to person and place. LABORATORY: Hematology: WBC 4.49, hemoglobin 11.1, hematocrit 32.7, MCV 85.2, platelet 140,000. Chemistry: Sodium 140, potassium 3.7, chloride 107, CO2 of 26, BUN 17, creatinine 0.6. Glucose 118, calcium 8.2, total bilirubin 1.37, AST 34, ALT 20, alkaline phosphatase 102, ammonia 172. ASSESSMENT AND PLAN: 1. Cirrhosis of the liver, end-stage renal disease. 2. Hepatic encephalopathy with elevated ammonia level and altered mental status. 3. Other medical problems: Atrial fibrillation, diabetes. PLAN: Continue current medications. Continue her lactulose and Xifaxan. I am not sure if maybe she had missed some of her medicines. Important for the family to make sure she is taking her medications regularly and as prescribed. Unfortunately, patient has had several admissions for hepatic encephalopathy. Continue current management. Will continue to follow. Repeat ammonia level tomorrow. Further plans will be made according to her progress. Depending on how she is doing tomorrow, we will see about advancing her diet at that time. Recommended low-sodium diet. I have discussed this case with Dr. Garza. Dictated by JORDON Hanson for Kong Garza MD cc: JORDON Aparicio MD Scott A. Matthews, MD
[2019-08-21] MEDS: PROTONIX PO SCH (06:21)
[2019-08-21] MEDS: SYNTHROID PO SCH (06:21)
[2019-08-21 07:53] LABS: AGAP 12; ALBUMIN 3.1 g/dL (3.5-5.0); ALKALINE PHOSPHATASE 100 U/L (32-104); BUN 11 mg/dL (8-22); CHLORIDE 110 mmol/L (98-107); COSMO 292; CREATININE 0.6 mg/dL (0.5-0.9); ESTIMATED GFR > 60; GLUCOSE 108 mg/dL (70-104); GOT 39 U/L (10-30); GPT 23 U/L (10-36); POTASSIUM 3.7 mmol/L (3.5-5.1); SODIUM 147 mmol/L (136-145); TCO2 25 mmol/L (25-35); TOTAL BILIRUBIN 2.46 mg/dL (0.20-1.00); TOTAL PROTEIN 6.3 g/dL (6.3-8.3)
[2019-08-21] MEDS ORDERED: LASIX PO SCH (09:00)
[2019-08-21] MEDS: VITAMIN B-12 PO SCH (09:31)
[2019-08-21] MEDS: LACTULOSE PO SCH (09:31)
[2019-08-21] MEDS: TAMBOCOR PO SCH (09:32)
[2019-08-21] MEDS: ASPIRIN PO SCH (09:32)
[2019-08-21] MEDS: SINGULAIR PO SCH (09:32)
[2019-08-21] MEDS: XIFAXAN PO SCH (12:40)
[2019-08-21] MEDS ORDERED: SODIUM CHLORIDE 0.9% 10 ML ONE (12:49)
[2019-08-21 15:58] VITALS: BP 167/56
--- NOTE | 2019-08-21 16:28 | GASTROENTEROLOGY PROGRESS NOTE ---
DATE: 08/21/2019 SUBJECTIVE: Patient was awake and alert at the time of my evaluation, she is oriented to person, place, and time now. She denies complaints. Her is at the bedside. When questioning the patient on if she was taking her medications including lactulose and Xifaxan, she states she has not missed a dose. She does state that she usually only has 1 bowel movement daily. I believe she takes 2 tablespoons of lactulose daily. OBJECTIVE: Vital Signs: Temperature 98.5 degrees, pulse 63, respirations 16, blood pressure 162/73. General: Patient is awake and alert. No acute distress. Respiratory: Lung sounds essentially clear. Abdomen: Soft, nontender. Positive bowel sounds. LABORATORY RESULTS: Hematology: WBC 4.49, hemoglobin 11.1, hematocrit 32.7, MCV 85.2. Chemistry: Sodium 147, potassium 3.7, chloride 110, CO2 25, BUN 11, creatinine 0.6, glucose 108, calcium 9.0, total bilirubin 2.46, AST 39, ALT 23, alkaline phosphatase 100, ammonia 48. ASSESSMENT AND PLAN: Hepatic encephalopathy has improved. Ammonia is back down to normal. Continue Xifaxan twice daily. Increase lactulose. I believe she is getting 30 mL twice daily in the hospital. I have spoken with her about trying to have at least 2 to 3 bowel movements daily. She can adjust and increase her lactulose as needed for goal of 2 to 3 bowel movements daily. Recommend low-sodium diet. As far as GI is concerned, she can be discharged when felt appropriate by Dr. Mariee. Recommend she follow up with us as an outpatient in the office. Further plans to be made as needed. I have discussed this case with Dr. Garza. Dictated by JORDON Hanson for Kong Garza MD cc: JORDON Aparicio MD Scott A. Matthews, MD
--- NOTE | 2019-08-21 22:05 | DISCHARGE SUMMARY ---
ADMISSION DATE: 08/20/2019 DISCHARGE DATE: 08/21/2019 ADMISSION DIAGNOSIS: 1. Alteration of mental status. 2. Confusion. DISCHARGE DIAGNOSES: 1. Hepatic encephalopathy, improved. 2. Diabetes, present on arrival. 3. Atrial fibrillation, present on arrival. 4. Lower extremity pain, present on arrival. 5. Profound weakness, improving. CONSULTATIONS: Dr. Garza with Gastroenterology was consulted for further evaluation and management of hepatic encephalopathy. PROCEDURES: CT scan of the head was performed on 08/19/2019 which revealed no hemorrhage. Negative brain CT without contrast. HISTORY AND PHYSICAL EXAMINATION: See admit note. PHYSICAL EXAMINATION PRIOR TO DISCHARGE: Temperature 98 degrees, heart rate 66, respirations 18, blood pressure is 167/56. General: Chronically ill appearing, no acute distress. Cardiovascular: Regular rate and rhythm. No significant murmurs, rubs, or gallops. Pulmonary: Clear to auscultation bilaterally. Abdomen: Soft, nontender, nondistended. Positive bowel sounds. Extremities: Moves all extremities well. No significant clubbing, cyanosis, or edema. Dermatologic: Evaluation reveals no evidence of rash. LABORATORY DATA: Prior to discharge. Sodium 147, potassium 3.7, chloride 110, bicarb 25, BUN 11, creatinine 0.6, glucose 108, calcium 9.0, total bilirubin 2.46, total protein 6.3, albumin 3.1, alkaline phosphatase 100, AST 39, ALT 23, ammonia 48. HOSPITAL COURSE: Patient was admitted as per history and physical examination. Hospital course per condition is as follows. 1. Hepatic encephalopathy-upon admission, patient was noted to have considerable confusion. Ammonia level while in the emergency department returned at 172. Patient's Xifaxan and lactulose were resumed. Lactulose dosage was increased to 30 mL b.i.d. Over the course of hospitalization, patient slowly achieved improvement. At time of discharge, patient's ammonia level had improved to 48. Her mental status had returned to baseline. The patient will be discharged home on her previous dosage of Xifaxan. Lactulose is to be titrated between 20 and 30 mL twice daily to maintain 2 bowel movements on a daily basis. We will follow patient closely as an outpatient. 2. Profound weakness-this likely was a consequence of her hepatic encephalopathy. The patient walked with physical therapy on the day of discharge. We will continue to encourage activity as an outpatient. 3. Diabetes-patient was covered with Accu-Cheks while hospitalized. She will continue her home regimen at discharge. 4. Atrial fibrillation-patient remained in a sinus-generated rhythm with low-dose flecainide therapy. She is not a candidate for anticoagulation. We will continue to follow this as an outpatient as well. 5. Lower extremity pain-while hospitalized, patient did not complain of pain. We will resume as needed Robaxin as an outpatient. DISCHARGE CONDITION: Stable. DISPOSITION: Discharged to home. MEDICATIONS: 1. Lactulose 20 mL to 30 mL twice daily. 2. Xifaxan 550 mg twice daily. 3. Pantoprazole 40 mg daily. 4. Singulair 10 mg daily. 5. Tylenol 650 mg every 6 hours as needed. 6. Vitamin B12 1000 mcg daily. 7. Aspirin 81 mg daily. 8. Levothyroxine 112 mcg daily. 9. Lasix 40 mg every other day. 10. Potassium chloride 8 mEq every other day. 11. Trazodone 100 mg at bedtime, increased from 75 mg at bedtime. 12. Robaxin 500 mg 3 times daily as needed. 13. Flecainide 25 mg twice daily. 14. Zinc daily. FOLLOWUP: Patient follow with me in approximately 1 to 2 weeks. cc: Giovani Mariee MD
== END 2019-08-21 18:46 | disposition home or self-care (01) | DRG 443 ==
LOC: ED 17:48 → SUATTDRO 08-20 00:15 → 3N 08-20 00:15
PROVIDERS: ADMIT Internal Medicine; ATTEND Internal Medicine

== ENCOUNTER 2019-10-13 10:18 | Inpatient (IN) ==
[2019-10-13] MEDS ORDERED: LASIX IV ONE (10:42)
[2019-10-13] MEDS ORDERED: ASPIRIN PO ONE (10:42)
[2019-10-13] MEDS ORDERED: NITROGLYCERIN TOP ONE (10:42)
--- NOTE | 2019-10-13 10:47 | EKG Report ---
Test Performed on : 10/13/2019 10:31:52 AM Test Reason : CP Blood Pressure : / mmHG Vent. Rate : 083 BPM Atrial Rate : 083 BPM P-R Int : 206 ms QRS Dur : 110 ms QT Int : 408 ms P-R-T Axes : 042 016 090 degrees QTc Int : 479 ms Normal sinus rhythm. Incomplete left bundle branch block Nonspecific T wave abnormality Prolonged QT Abnormal ECG When compared with ECG of 11-SEP-2019 18:58, (Unconfirmed) T wave inversion no longer evident in Inferior leads Nonspecific T wave abnormality, worse in Lateral leads Unconfirmed Result
[2019-10-13 11:09] LABS: BASO# 0.03 X1000 (0.0-0.2); BASO% 0.7 % (0.0-0.8); EOS# 0.22 X1000 (0.0-0.7); EOS% 5.4 % (0.0-10.0); HEMATOCRIT 33.6 % (37.0-47.0); LYMPH# 1.15 X1000 (1.2-3.4); LYMPH% 28.1 % (20.5-51.1); MCH 28.6 PG (27-31); MCHC 32.7 g/dL (33-37); MCV 87.3 FL (81-99); MONO# 0.29 X1000 (0.11-0.59); MONO% 7.1 % (1.7-9.3); MPV 8.7 FL (7.4-10.4); NEUT% 58.7 % (42.2-75.2); PLT 141 X1000 (130-400); RBC 3.85 XMIL (4.2-5.4); RDW 14.9 % (11.5-14.5); WBC 4.09 X1000 (4.8-10.8)
[2019-10-13 11:23] LABS: INR 1.42; PROTIME 17.6 Seconds (11.0-16.0)
--- NOTE | 2019-10-13 11:23 | Diag Imaging Result Doc PS360 ---
EXAM: CHEST-2 VIEWS 10/13/2019 HISTORY: SOB TECHNIQUE: PA and lateral chest COMMENT: There are bilateral pleural effusions. This is worse than on the previous study of 09/11/2019 particularly on the right. There is cardiomegaly. There is atelectasis in both lower lobes and the lingula and middle lobe. The possibility of underlying pneumonia cannot be excluded. There is likely pulmonary edema. IMPRESSION: Bilateral pleural effusions, pulmonary edema and basilar atelectasis. Cardiomegaly. Electronically signed by Skip Ga 10/13/2019 11:20 AM
[2019-10-13 11:24] LABS: PTT 28.1 Seconds (22.3-41.8)
[2019-10-13 11:35] LABS: URINE SOURCE CLEAN CATCH
[2019-10-13 11:36] LABS: AGAP 12; ALB/GLOB RATIO 0.9; ALBUMIN 2.8 g/dL (3.5-5.0); ALKALINE PHOSPHATASE 94 U/L (32-104); BUN 19 mg/dL (8-22); CALCIUM 8.7 mg/dL (8.8-10.2); CHLORIDE 102 mmol/L (98-107); COSMO 287; CREATININE 0.8 mg/dL (0.5-0.9); ESTIMATED GFR > 60; GLUCOSE 156 mg/dL (70-104); GOT 44 U/L (10-30); GPT 20 U/L (10-36); MAGNESIUM 1.9 mg/dL (1.5-2.7); POTASSIUM 4.2 mmol/L (3.5-5.1); SODIUM 141 mmol/L (136-145); TCO2 27 mmol/L (25-35); TOTAL BILIRUBIN 1.69 mg/dL (0.20-1.00); TOTAL PROTEIN 5.9 g/dL (6.3-8.3)
[2019-10-13 11:42] LABS: BILIRUBIN URINE NEGATIVE (NEGATIVE); BLOOD URINE SMALL (NEGATIVE); COLOR YELLOW; GLUCOSE URINE NEGATIVE (NEGATIVE); KETONE URINE NEGATIVE (NEGATIVE); LEUKOCYTES URINE NEGATIVE (NEGATIVE); NITRITE URINE NEGATIVE (NEGATIVE); PROTEIN URINE 50 mg/dL (NEGATIVE); TURBIDITY URINE CLEAR (CLEAR); UROBILINOGEN URINE NORMAL (NORMAL)
[2019-10-13 11:44] LABS: UR EPITHELIAL CELLS <10 /HPF (<10); URINE BACTERIA NEGATIVE /HPF; URINE RBC <10 /HPF (<10); URINE WBC <10 /HPF (<10)
[2019-10-13 11:56] LABS: CK PROFILE 243 U/L (24-173)
[2019-10-13 13:19] LABS: CK INDEX 2.2 (0.0-2.5)
--- NOTE | 2019-10-13 14:07 | Diag Imaging Result Doc PS360 ---
CT ANGIOGRM PULMONARY ARTERIES - 10/13/2019 INDICATION: exertional dyspnea TECHNIQUE: Axial CT images were obtained after administering intravenous contrast. Coronal MIP images were generated. COMPARISON: None FINDINGS: There is no pulmonary embolism. Heart size is normal. Great vessels are normal. There are moderate bilateral pleural effusions. No infiltrates in the lungs otherwise. There is a TIPS shunt. The liver is atrophic and cirrhotic. There is splenomegaly. There is diffuse body wall edema. There are moderate degenerative changes of the spine. No acute or suspicious bony lesion. IMPRESSION: Moderate bilateral pleural effusions. Cirrhosis and splenomegaly. Tips shunt. This exam was performed using automated exposure control, adjustment of mA or kV according to patient size, and/or use of iterative reconstruction technique Electronically signed by Nestor Paul 10/13/2019 2:05 PM
--- NOTE | 2019-10-13 14:50 | PROVIDER DOCUMENTATION ---
This chart was entered by Caremn Landeros Scribe, acting as scribe for Edouard Nails MD. HPI-Respiratory General - General Chief Complaint: Shortness of Breath Stated Complaint: SOB,WEAKNESS,COUGH,CONGESTED Time Seen by Provider: 10/13/19 10:32 Source: patient Allergies/Adverse Reactions: Patient Allergies Allergy/AdvReac Type Severity Reaction Status Date / Time dopamine [Dopamine] Allergy Severe ANAPHYLAXIS Verified 10/13/19 11:56 Home Medications: Home Medication List Medication Instructions Recorded Confirmed Last Taken Type Aspirin 81 mg PO DAILY chewtab 04/29/19 10/13/19 10/13/19 09:00 Rx Cyanocobalamin [Vitamin B-12] 1,000 microgm PO DAILY tab 04/29/19 10/13/19 10/13/19 09:00 Rx Levothyroxine [Synthroid] 112 microgm PO DAILY@0700 tab 04/29/19 10/13/19 10/13/19 07:00 Rx Montelukast [Singulair] 10 mg PO DAILY tab 04/29/19 10/13/19 10/13/19 09:00 Rx Pantoprazole [Protonix] 40 mg PO DAILY@0700 tab 04/29/19 10/13/19 10/13/19 07:00 Rx Furosemide [Lasix] 40 mg PO EVERY OTHER DAY #0 tab 06/03/19 10/13/19 Unknown Rx Potassium Chloride E.r. [Micro-K] 8 meq PO EVERY OTHER DAY #30 cap 06/03/19 10/13/19 05/30/19 09:00 Rx Lactulose 30 ml PO BID udc 08/21/19 10/13/19 10/13/19 09:00 Rx Rifaximin [Xifaxan] 550 mg PO BID tab 08/21/19 10/13/19 10/13/19 07:00 Rx Zinc Sulfate 220 mg PO EVERY OTHER DAY #0 08/21/19 10/13/19 05/30/19 09:00 Rx Flecainide [Tambocor] 6.25 mg PO BID 09/11/19 10/13/19 Unknown History Insulin Glargine,Hum.rec.anlog 4 unit SQ QHS 09/11/19 10/13/19 Unknown History [Lantus Solostar] Tramadol [Ultram] 50 mg PO TID PRN 09/11/19 10/13/19 Unknown History Methocarbamol [Robaxin] 500 mg PO TID PRN 10/13/19 10/13/19 10/12/19 21:00 History Trazodone [Desyrel] 100 mg PO HS 10/13/19 10/13/19 10/12/19 21:00 History - History of Present Illness-Resp Nature of Presenting Problem: Patient is a 74 year old female who presents with shortness of breath. States cough and weakness with shortness of breath. Reports symptoms started 2 days ago. Denies fever, chills, productive cough and blood in stool. History of Afib and cirrhosis. Quality of Pain: reports: none Severity in ED: reports: mild Onset/Duration: reports: 2 days ago Timing: reports: still present, getting worse Cough Quality/Degree: reports: moderate, dry cough. denies: sputum Modifying Factors: worse with: exertion, lying down Associated Symptoms: reports: cough, shortness of breath, other (weakness) Similar Symptoms Previously?: Yes Recently seen or treated by another doctor?: No Review of Systems - Adult - REVIEW OF SYSTEMS - ADULT Constitutional: reports: no symptoms reported. denies: chills, fever, fatique Eyes: reports: no symptoms reported Ears, Nose, Mouth & Throat: reports: no symptoms reported Cardiovascular: reports: no symptoms reported Respiratory: reports: see HPI, cough, shortness of breath. denies: wheezing Gastrointestinal: reports: no symptoms reported Genitourinary: reports: no symptoms reported Musculoskeletal: reports: see HPI, muscle weakness. denies: back pain, neck pain Integumentary: reports: no symptoms reported Neurological: reports: no symptoms reported Psychiatric: reports: no symptoms reported Endocrine: reports: no symptoms reported Hematologic/Lymphatic: reports: no symptoms reported Allergic/Immunologic: reports: no symptoms reported All Other Systems: Reviewed and Negative Past History - Adult - PAST MEDICAL HISTORY-ADULT Review of Records: reports: Old Records Reviewed, Nursing Assessment Review, Medications Reviewed, Social history reviewed & non-contributory. Major Childhood Illnesses: reports: denies history Cardiovascular: reports: A-Fib, CHF, HTN Respiratory: reports: denies history Gastrointestinal: reports: GERD, liver disease (cirrhosis.) Obstetrical/Gynecological: reports: denies history Genitourinary: reports: kidney stones Musculoskeletal: reports: denies history Neurological: reports: denies history Endocrine/Immune: reports: Diabetes, thyroid disorder Other Conditions: reports: denies history - PRIOR SURGERIES/PROCEDURES Surgical/Procedure History: reports: cholecystectomy, tonsillectomy, other (cystoscopy) - PRIOR HOSPITALIZATIONS Prior Hospitalizations: reports: for other non-related - IMMUNIZATION STATUS Childhood Immunizations: See Nurse Assessment Flu Vaccine: See Nurse Assessment - FAMILY HISTORY Family History: reviewed, not pertinent - SOCIAL HISTORY Smoking: denies Substance Use: denies Physical Exam-General - PHYSICAL EXAM-ADULT Initial Vital Signs Reviewed: Yes - CONSTITUTIONAL General Appearance: alert, no apparent distress. negative: lethargic - HEAD, EARS, NOSE, MOUTH & THROAT HENMT: normocephalic/atraumatic, moist mucous membranes. negative: angioedema - RESPIRATORY Respiratory: chest non-tender, lungs clear, increased rate. negative: crackles, rhonchi - CARDIOVASCULAR Cardiovascular: regular rate, rhythm, systolic murmur (3/6 blowing murmur), ga llop/S3. negative: tachycardia - GASTROINTESTINAL (ABDOMEN) Abdominal Exam: normal bowel sounds, non tender, soft. negative: guarding, rebound - MUSCULOSKELETAL Extremity: normal inspection. negative: deformity, erythema - SKIN Integumentary: normal color, normal turgor, warm/dry. negative: diaphoresis, ecchymosis, jaundice - NEUROLOGIC Neurologic: grossly normal. negative: aphasia, facial droop - PSYCHIATRIC Psych/Mental Status: normal mood/affect, oriented x 3. negative: anxious Progress - PLAN OF CARE/RESULTS Progress/Plan/Lab Results: Vital Signs - 8 hr 10/13/19 10:21 Temperature 97.5 F L Pulse Rate 85 Respiratory Rate 22 Blood Pressure 155/71 O2 Sat by Pulse Oximetry 94 L Laboratory Results - last 24 hr 10/13/19 10/13/19 10/13/19 10:50 10:50 10:50 WBC 4.09 L RBC 3.85 L Hgb 11.0 L Hct 33.6 L MCV 87.3 MCH 28.6 MCHC 32.7 L RDW Std Deviation 14.9 H Plt Count 141 MPV 8.7 Immature Gran % (Auto) 0.0 Neut % (Auto) 58.7 Lymph % (Auto) 28.1 [place] % (Auto) 7.1 Eos % (Auto) 5.4 Baso % (Auto) 0.7 Immature Gran # (Auto) 0.00 Neut # (Auto) 2.40 Lymph # (Auto) 1.15 L [place] # (Auto) 0.29 Eos # (Auto) 0.22 Baso # (Auto) 0.03 PT INR PTT (Actin FS) D-Dimer, Quantitative Sodium 141 Potassium 4.2 Chloride 102 Carbon Dioxide 27 Anion Gap 12 BUN 19 Creatinine 0.8 Estimated GFR/1.73 m2 > 60 BUN/Creatinine Ratio 24 Glucose 156 H Calculated Osmolality 287 Calcium 8.7 L Magnesium 1.9 Total Bilirubin 1.69 H AST 44 H ALT 20 Alkaline Phosphatase 94 Ammonia Creatine Kinase 243 H Creatine Kinase Index 2.2 CK-MB (CK-2) 5.30 H Troponin T Enu-E-Ltsuzcgeain Pept 720 H Total Protein 5.9 L Albumin 2.8 L Globulin 3.1 Albumin/Globulin Ratio 0.9 Urine Source Urine Color Urine Turbidity Urine pH Ur Specific [place] Urine Protein Ur Glucose (Stick) Ur Ketones (Stick) Urine Blood Urine Nitrite Urine Bilirubin Urobilinogen Dipstick Urine Leukocytes Urine WBC (Auto) Urine RBC (Auto) U Epithel Cells (Auto) Urine Bacteria (Auto) 10/13/19 10/13/19 10/13/19 10:50 10:50 11:08 WBC RBC Hgb Hct MCV MCH MCHC RDW Std Deviation Plt Count MPV Immature Gran % (Auto) Neut % (Auto) Lymph % (Auto) [place] % (Auto) Eos % (Auto) Baso % (Auto) Immature Gran # (Auto) Neut # (Auto) Lymph # (Auto) [place] # (Auto) Eos # (Auto) Baso # (Auto) PT 17.6 H INR 1.42 PTT (Actin FS) 28.1 D-Dimer, Quantitative 2.80 H Sodium Potassium Chloride Carbon Dioxide Anion Gap BUN Creatinine Estimated GFR/1.73 m2 BUN/Creatinine Ratio Glucose Calculated Osmolality Calcium Magnesium Total Bilirubin AST ALT Alkaline Phosphatase Ammonia 69 H Creatine Kinase Creatine Kinase Index CK-MB (CK-2) Troponin T < 0.010 Qad-N-Vlvdmkoipgf Pept Total Protein Albumin Globulin Albumin/Globulin Ratio Urine Source Urine Color Urine Turbidity Urine pH Ur Specific [place] Urine Protein Ur Glucose (Stick) Ur Ketones (Stick) Urine Blood Urine Nitrite Urine Bilirubin Urobilinogen Dipstick Urine Leukocytes Urine WBC (Auto) Urine RBC (Auto) U Epithel Cells (Auto) Urine Bacteria (Auto) 10/13/19 11:33 WBC RBC Hgb Hct MCV MCH MCHC RDW Std Deviation Plt Count MPV Immature Gran % (Auto) Neut % (Auto) Lymph % (Auto) [place] % (Auto) Eos % (Auto) Baso % (Auto) Immature Gran # (Auto) Neut # (Auto) Lymph # (Auto) [place] # (Auto) Eos # (Auto) Baso # (Auto) PT INR PTT (Actin FS) D-Dimer, Quantitative Sodium Potassium Chloride Carbon Dioxide Anion Gap BUN Creatinine Estimated GFR/1.73 m2 BUN/Creatinine Ratio Glucose Calculated Osmolality Calcium Magnesium Total Bilirubin AST ALT Alkaline Phosphatase Ammonia Creatine Kinase Creatine Kinase Index CK-MB (CK-2) Troponin T Cfw-H-Knfwqehiwjq Pept Total Protein Albumin Globulin Albumin/Globulin Ratio Urine Source CLEAN CATCH Urine Color YELLOW Urine Turbidity CLEAR Urine pH 6.0 Ur Specific [place] 1.010 Urine Protein 50 A Ur Glucose (Stick) NEGATIVE Ur Ketones (Stick) NEGATIVE Urine Blood SMALL A Urine Nitrite NEGATIVE Urine Bilirubin NEGATIVE Urobilinogen Dipstick NORMAL Urine Leukocytes NEGATIVE Urine WBC (Auto) <10 Urine RBC (Auto) <10 U Epithel Cells (Auto) <10 Urine Bacteria (Auto) NEGATIVE Orders Category Date Time Status Cardiac Monitoring DIRECTED Care 10/13/19 10:31 Active Oxygen Therapy- ED Nursing DIRECTED Care 10/13/19 10:31 Active Saline Loc NOW Care 10/13/19 10:31 Active CHEST-2 VIEWS [RAD] Stat Exams 10/13/19 10:31 Completed CTA [CT ANGIOGRM PULMONARY ARTERIES] [CT] Stat Exams 10/13/19 13:18 Completed AMMONIA [CHEM] Stat Lab 10/13/19 11:08 Completed CBC WITH ELECTRONIC DIFF [HEME] Stat Lab 10/13/19 10:50 Completed CK PROFILE [SP CHEM] Stat Lab 10/13/19 10:50 Completed COMPREHENSIVE METABOLIC PANEL [CHEM] Stat Lab 10/13/19 10:50 Completed D-DIMER [COAG] Stat Lab 10/13/19 10:50 Completed MAGNESIUM [CHEM] Stat Lab 10/13/19 10:50 Completed PRO B-NATRIURETIC PEPTIDE Stat Lab 10/13/19 10:50 Completed PROTIME WITH INR [COAG] Stat Lab 10/13/19 10:50 Completed PTT [COAG] Stat Lab 10/13/19 10:50 Completed TROPONIN T Stat Lab 10/13/19 10:50 Completed URINALYSIS W/POSS RFLX CULT [URINALYSIS] Stat Lab 10/13/19 11:33 Completed Aspirin Med 10/13/19 10:42 Discontinued 325 mg PO NOW ONE Furosemide [Lasix] Med 10/13/19 10:42 Discontinued 40 mg IV NOW ONE Nitroglycerin Med 10/13/19 10:42 Discontinued 0.5 inch TOP NOW ONE CP/SOB/Palp >45 yrs of Age Stat Oth 10/13/19 10:30 Ordered EKG [EKG] Stat Ther 10/13/19 10:31 Draft Result Diagrams: 10/13/19 10:50 10/13/19 10:50 - REASSESSMENT Reassessment #1 Time Reassessed: 13:21 Status: improving (States she is starting to feel better, urinating, still with exertional dyspnea. Will need admission. CXR consistent with CHF exacerbation, however, as d-dimer is elevated, will obtain CTA to r/o PE.) - EKG 1 Time of EKG reading by physician:: 10:31 EKG Read and Signed by:: Edouard Nails EKG Interpretation (*Must complete 3 of following elements*): Abnormal Rate: 83 Rhythm: normal sinus rhythm [place]: normal QRS: LBB (incomplete) Comments: nonspecific T wave abnormality; prolonged QT - XRAY 1 XRAY Study: Chest Impression: See EMR Report (EXAM: CHEST-2 VIEWS 10/13/2019 HISTORY: SOB TECHNIQUE: PA and lateral chest COMMENT: There are bilateral pleural effusions. This is worse than on the previous study of 09/11/2019 particularly on the right. There is cardiomegaly. There is atelectasis in both lower lobes and the lingula and middle lobe. The possibility of underlying pneumonia cannot be excluded. There is likely pulmonary edema. IMPRESSION: Bilateral pleural effusions, pulmonary edema and basilar atelectasis. Cardiomegaly. Electronically signed by Skip Ga 10/13/2019 11:20 AM 10/13/19 1120 Interpreting Physician: Skip Ga MD Dictated Date/Time: 10/13/19 1120 cc: Edouard Nails MD; Giovani Mariee MD) - CT/MRI 1 CT Study: Angiogram Impression: See EMR Report ( CT ANGIOGRM PULMONARY ARTERIES - 10/13/2019 INDICATION: exertional dyspnea TECHNIQUE: Axial CT images were obtained after administering intravenous contrast. Coronal MIP images were generated. COMPARISON: None FINDINGS: There is no pulmonary embolism. Heart size is normal. Great vessels are normal. There are moderate bilateral pleural effusions. No infiltrates in the lungs otherwise. There is a TIPS shunt. The liver is atrophic and cirrhotic. There is splenomegaly. There is diffuse body wall edema. There are moderate degenerative changes of the spine. No acute or suspicious bony lesion. IMPRESSION: Moderate bilateral pleural effusions. Cirrhosis and splenomegaly. Tips shunt. This exam was performed using automated exposure control, adjustment of mA or kV according to patient size, and/or use of iterative reconstruction technique Electronically signed by Nestor Paul 10/13/2019 2:05 PM 10/13/19 1405 Interpreting Physician: Nestor Paul MD Dictated Date/Time: 10/13/19 1401 cc: Edouard Nails MD; Giovani Mariee MD) - CONSULTS/PCP/HOSPITALIST Notification #1 *Consult/PCP/Hospitalist*: Dr. Mariee paged at 1442 Time Discussed: 14:44 Reason/Comments: Dr. Nails consulted with Dr. Mariee about patient. Consult Disposition: Admit Departure - Departure Date of Disposition Decision: 10/13/19 Time of Disposition Decision: 14:49 DIAGNOSIS: Exertional dyspnea, Pleural effusion, bilateral, Liver cirrhosis secondary to BANKS (nonalcoholic steatohepatitis) Disposition: ADMITTED INPATIENT 09 Certified Medical Emergency: Emergent Condition: Fair Referrals and Follow-Ups: Giovani Mariee MD [Primary Care Provider] - - Critical Care Note This patient required my direct & personal management of CC.: No Attestation - Physician/ CHRISTOPHE Attestation Patient care was provided by Advanced Practice Provider:: No The physician spent face to face time with patient:: Yes Advanced Practice Provider documentation review:: Supervising physician onsite and consulted in the evaluation and care of this patient. The physician did have a face to face encounter with the patient. This chart was documented by the indicated scribe, (Carmen Landeros Scribe) and accurately reflects the services I performed and decisions made by Jesu jenkins Kent A., MD, as attested by the provider's signature.
[2019-10-13] MEDS ORDERED: TYLENOL PO PRN (14:52)
[2019-10-13] MEDS ORDERED: ZOFRAN PO PRN (14:52)
[2019-10-13] MEDS ORDERED: ULTRAM PO SCH (21:00)
[2019-10-13] MEDS ORDERED: TAMBOCOR PO SCH (21:00)
[2019-10-13] MEDS: LANTUS INSULIN SUBQ SCH (21:06)
[2019-10-13] MEDS: ROBAXIN PO SCH (21:06)
[2019-10-13] MEDS: LACTULOSE PO SCH (21:06)
[2019-10-13] MEDS: XIFAXAN PO SCH (21:06)
--- NOTE | 2019-10-13 21:26 | HISTORY AND PHYSICAL ---
PRIMARY CARE PHYSICIAN: Dr. Giovani Mariee. CHIEF COMPLAINT: Profound shortness of breath. HISTORY OF PRESENT ILLNESS: A 73-year-old white female with a very complicated past medical history who presents for my evaluation of progressive shortness of breath. Current history of present illness began on Saturday. On Saturday morning, she awoke in her normal state of health. Patient states she was able to attend jain without significant difficulties. By Saturday, the afternoon, patient noted increasing shortness of breath. She denies chest pains, or palpitations. While symptoms increased, she did not limit her activity. She was able to go to jain without consequence. By Saturday morning, she awoke with significant increase in her shortness of breath. Throughout the day, she had significant dyspnea on exertion. She had a mild cough, but denied congestion, fevers, and chills. The patient had difficulty sleeping overnight as she was unable to lie supine without profound shortness of breath. This morning, she awoke with progressive symptoms. She contacted my office. Because of the rapidly progressive nature of her symptoms, she was referred to the emergency department. Upon arrival, full evaluation was pursued. Laboratory data returned significant for an elevated D-dimer. Chest x-ray suggested bilateral pleural effusions, pulmonary edema, and bibasilar atelectasis. CT angiogram of the chest, returned with moderate bilateral pleural effusions. Cirrhosis and splenomegaly. Tips shunt appeared to have no evidence of pulmonary thromboembolism. The patient was treated with Lasix therapy while in the emergency department. Upon my arrival this evening, patient's overall condition has improved slightly. The patient is able to talk without becoming short of breath, and improvement per patient's family. The patient will be admitted to the hospital for full evaluation and management of volume overload in the setting of underlying cirrhosis. PAST MEDICAL HISTORY: 1. Allergic rhinitis. 2. Abnormal skin examination with multiple seborrheic keratoses, rosacea, and nevi. 3. Minimal carotid artery disease. 4. History of multiple episodes of chest discomfort with left heart catheterization in 2010 returning with normal angiography. 5. Cholelithiasis status post laparoscopic cholecystectomy in 1993. 6. Iron-deficiency anemia. 7. Type 2 diabetes. 8. Reflux disease. 9. Hypertension. 10. History of premenopausal menorrhagia status post ISHAAN/unilateral SO in 1973. 11. History of intermittent syncopal episodes. 12. Nonalcoholic fatty cirrhosis. 13. Hypothyroidism. 14. Low back pain. 15. Depression. 16. Obesity. 17. Osteoarthritis. 18. Osteopenia. 19. History of peptic ulcer disease. 20. Menopause. 21. Family history of ischemic heart disease. 22. 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 23. History of a urethral diverticulum status post resection. 24. Valvular heart disease. 25. Intermittent headaches. CURRENT MEDICATIONS: 1. Lactulose 30 mL twice daily. 2. Xifaxan 550 mg twice daily. 3. Pantoprazole 40 mg daily. 4. Singulair 10 mg daily. 5. Tylenol 650 mg every 6 hours as needed. 6. Vitamin B12 1000 mcg daily. 7. Aspirin 81 mg daily. 8. Levothyroxine 112 mcg daily. 9. Lasix 40 mg every other day. 10. Potassium chloride 8 mEq every other day. 11. Trazodone 100 mg at bedtime. 12. Robaxin 500 mg 3 times daily as needed. 13. Flecainide 25 mg twice daily. 14. Zinc daily. ALLERGIES: The patient states she is allergic to Cymbalta which causes fatigue, dobutamine, iron, Lexapro, and spironolactone. SOCIAL HISTORY: The patient quit tobacco in 1958. She previously smoked socially for approximately 1 year. She denies alcohol or illicit drug use. 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 She enjoys traveling. She exercises intermittently. FAMILY HISTORY: The patient's father passed at age 72 secondary to complications of Alzheimer dementia. Patient's mother passed at age 82 secondary to complications of an acute myocardial infarction. She had a history of hyperlipidemia, atrial fibrillation, and diabetes. History of heart attack is present in a sibling. REVIEW OF SYSTEMS: A 12 point review of systems was performed. Pertinent positives and negatives are noted in history present illness. PHYSICAL EXAMINATION: VITAL SIGNS: Temperature 98.1 degrees, heart rate 77, respirations 18, blood pressure is 191/66. GENERAL: Chronically ill appearing, no acute distress. HEENT: Normocephalic, atraumatic. Pupils equal, round, reactive to light. Extraocular muscles intact. Sclerae anicteric. [place] conjunctivae. Oral and nasopharynx clear without exudate. NECK: Supple. No lymphadenopathy. No thyromegaly. No bruits auscultated. CARDIOVASCULAR: Regular rate and rhythm. No significant murmurs, rubs, or gallops. PULMONARY: Decreased breath sounds at bilateral bases. ABDOMEN: Soft, nontender, nondistended. Positive bowel sounds. EXTREMITIES: Moves all extremities well. No significant clubbing, cyanosis, or edema. NEUROLOGIC: Cranial nerves 2-12 grossly intact. Motor and sensory grossly intact. PSYCHOLOGIC EXAMINATION: Is appropriate. LABORATORY DATA: White blood cell count 4.09, hemoglobin 11.0, hematocrit 33.6, platelet count 141,000. PT 17.6, INR is 1.42, PTT is 28.1, D-dimer is 2.80. Sodium 141, potassium 4.2, chloride 102, bicarb 27, BUN 19, creatinine 0.9, glucose 156, calcium 8.7, magnesium 1.9. Total bilirubin 1.69, total protein 5.9, albumin 2.8, alkaline phosphatase 94, AST 44, ALT 20. CK 243, CK-MB 5.30, troponin less than 0.010, proBNP 720. Urinalysis revealed 50 protein, small blood. Chest x- ray and CT angiogram are as noted above. ASSESSMENT AND PLAN: A 74-year-old white female with a complicated past medical history who presents for evaluation of progressive shortness of breath. Chest x-ray and CT scan are consistent with increasing volume. The patient does have a history of nonalcoholic fatty cirrhosis requiring transjugular intrahepatic portosystemic shunt intervention. Historically, volume has been controlled with diuresis. I suspect at this point, patient's volume has increased. Patient will be admitted to the hospital for further management of nonalcoholic fatty liver disease, cirrhosis, volume overload with associated profound shortness of breath. 1. Admit to General Medicine. 2. Volume overload - As above, I suspect this is a consequence of her nonalcoholic fatty cirrhosis. As above, patient is status post transjugular intrahepatic portosystemic shunt procedure. This has improved her volume; however, has not resolved the need for diuresis. The patient states her dry weight has remained reasonably stable. I suspect patient may have loss muscle mass with progression of her disease and now has excess volume despite having a stable weight. The patient was provided IV diuresis in the ER. We will continue to provide IV diuresis as needed. We will plan to assess a new dry weight prior to discharge. 3. Nonalcoholic cirrhosis - As above, patient is status post transjugular intrahepatic portosystemic shunt procedure. She is approaching end-stage. We will continue to optimize the patient's medical and nonmedical management. Ammonia level today is at an acceptable range. We will continue her current regimen. 4. Hypertension - The patient's blood pressure is significantly elevated this evening. She has been treated with irbesartan therapy in the past. She currently is being treated non- medically. We will follow patient's blood pressure while hospitalized. We will adjust as necessary. 5. Reflux disease - We will continue patient on pantoprazole therapy. 6. Hypothyroidism - We will continue patient on levothyroxine replacement. 7. Recent history of atrial fibrillation - The patient has been treated with flecainide therapy. She appears to be in sinus-generated rhythm today. We will follow patient on telemetry. 8. Profound weakness - We will re-evaluate the patient in the morning. We will determine if initiating physical therapy is appropriate. 9. Fluid, electrolytes, nutrition. We will monitor electrolytes. Saline lock IV. A hepatic diet. 10. Prophylaxis. The patient will be placed on sequential compression devices. cc: Giovani Mariee MD
[2019-10-13] MEDS: DESYREL PO SCH (21:53)
[2019-10-14 05:21] LABS: BASO# 0.04 X1000 (0.0-0.2); EOS# 0.33 X1000 (0.0-0.7); EOS% 8.2 % (0.0-10.0); HEMATOCRIT 28.6 % (37.0-47.0); HEMOGLOBIN 9.3 g/dL (12.0-16.0); LYMPH# 1.44 X1000 (1.2-3.4); LYMPH% 35.6 % (20.5-51.1); MCH 28.4 PG (27-31); MCHC 32.5 g/dL (33-37); MCV 87.2 FL (81-99); MONO# 0.38 X1000 (0.11-0.59); MONO% 9.4 % (1.7-9.3); MPV 9.1 FL (7.4-10.4); NEUT# 1.85 X1000 (1.4-6.5); NEUT% 45.8 % (42.2-75.2); PLT 125 X1000 (130-400); RBC 3.28 XMIL (4.2-5.4); RDW 14.8 % (11.5-14.5); WBC 4.04 X1000 (4.8-10.8)
[2019-10-14 05:33] LABS: AGAP 7; ALB/GLOB RATIO 0.9; ALBUMIN 2.6 g/dL (3.5-5.0); ALKALINE PHOSPHATASE 85 U/L (32-104); BUN 18 mg/dL (8-22); CALCIUM 8.4 mg/dL (8.8-10.2); CHLORIDE 103 mmol/L (98-107); COSMO 285; CREATININE 0.8 mg/dL (0.5-0.9); ESTIMATED GFR > 60; GLUCOSE 105 mg/dL (70-104); GOT 34 U/L (10-30); GPT 17 U/L (10-36); POTASSIUM 3.2 mmol/L (3.5-5.1); SODIUM 142 mmol/L (136-145); TCO2 32 mmol/L (25-35); TOTAL BILIRUBIN 1.03 mg/dL (0.20-1.00); TOTAL PROTEIN 5.6 g/dL (6.3-8.3)
[2019-10-14] MEDS: SYNTHROID PO SCH (06:27)
[2019-10-14] MEDS: PROTONIX PO SCH (06:27)
[2019-10-14] MEDS ORDERED: KLOR-CON PO ONE (08:30)
[2019-10-14] MEDS ORDERED: LASIX IV ONE (08:30)
[2019-10-14] MEDS: XIFAXAN PO SCH ×2 (09:08→20:35)
[2019-10-14] MEDS: VITAMIN B-12 PO SCH (09:09)
[2019-10-14] MEDS: ASPIRIN PO SCH (09:09)
[2019-10-14] MEDS: LACTULOSE PO SCH ×2 (09:09→20:33)
[2019-10-14] MEDS: SINGULAIR PO SCH (09:09)
[2019-10-14] MEDS: TAMBOCOR PO SCH ×2 (09:09→20:34)
[2019-10-14] MEDS ORDERED: AVAPRO PO ONE (17:07)
--- NOTE | 2019-10-14 19:16 | PROGRESS NOTE ---
DATE: 10/14/2019 SUBJECTIVE: Upon my arrival this morning, patient states she rested reasonably well. With diuresis yesterday, her shortness of breath had improved, but not to baseline. Laboratory data was reviewed and patient was again diuresed with IV Lasix. Supplemental potassium was also provided. This evening, patient notes further improvement. She diuresed well after her treatment today. Her p.o. intake is improving. Energy level is improving. She denies fevers, chills, nausea, vomiting, or chest discomfort. OBJECTIVE: Temperature max 98.3, heart rate 63 to 74, respirations 16 to 18, blood pressure 155 to 191/53 to 86.General: Chronically ill appearing, no acute distress. Cardiovascular: Regular rate and rhythm. No significant murmurs, rubs, or gallops. Pulmonary: Decreased breath sounds at bilateral bases. Adequate air movement. Abdomen: Soft, nontender, nondistended. Positive bowel sounds. Extremities: Moves all extremities well. No significant clubbing, cyanosis, or edema. Dermatologic: No evidence of rash. LABORATORY DATA: White blood cell count 4.04, hemoglobin 9.3, hematocrit 28.6, platelet count is 125,000. Sodium 142, potassium 3.2, chloride 103, bicarbonate 32, BUN 18, creatinine 0.8, glucose 105, calcium 8.4. Total bilirubin 1.03, total protein 5.6, albumin 2.6, alkaline phosphatase 85, AST 34, ALT 17. ASSESSMENT AND PLAN: 1. Volume overload with associated bilateral pleural effusions and shortness of breath. This likely is a consequence of her decompensated cirrhosis. With diuresis, patient has achieved improvement, although not at baseline. We will continue daily diuresis as tolerated. We will plan to adjust outpatient regimen depending on her progress. 2. Nonalcoholic cirrhosis. As above, this likely is a consequence of her shortness of breath and volume overload. We will continue a low-sodium diet. 3. Hypertension. The patient's blood pressure today remains elevated. Historically, she has taken irbesartan. We will start low dose. We will monitor her blood pressures. 4. Reflux disease. We will continue pantoprazole therapy. Symptoms are controlled. 5. Hypothyroidism. We will continue patient on replacement. 6. Atrial fibrillation. Patient remains in a sinus-generated rhythm. We will continue flecainide therapy. 7. Profound weakness. The patient is achieving slow improvement with treatment as above. We will encourage out of bed for all meals. 8. Disposition. At this point, patient continues to require [facility] care in a hospital setting. We will plan discharge home once appropriate. cc: Giovani Mariee MD
[2019-10-14] MEDS: DESYREL PO SCH (20:34)
[2019-10-14] MEDS: ROBAXIN PO SCH (20:34)
[2019-10-14] MEDS: LANTUS INSULIN SUBQ SCH (20:35)
[2019-10-14] MEDS ORDERED: DESYREL PO SCH (21:00)
[2019-10-15 05:04] LABS: BASO# 0.02 X1000 (0.0-0.2); BASO% 0.5 % (0.0-0.8); EOS# 0.37 X1000 (0.0-0.7); EOS% 8.9 % (0.0-10.0); HEMATOCRIT 29.1 % (37.0-47.0); HEMOGLOBIN 9.5 g/dL (12.0-16.0); LYMPH# 1.48 X1000 (1.2-3.4); LYMPH% 35.7 % (20.5-51.1); MCH 28.6 PG (27-31); MCHC 32.6 g/dL (33-37); MCV 87.7 FL (81-99); MONO# 0.39 X1000 (0.11-0.59); MONO% 9.4 % (1.7-9.3); MPV 9.1 FL (7.4-10.4); NEUT# 1.88 X1000 (1.4-6.5); NEUT% 45.5 % (42.2-75.2); PLT 124 X1000 (130-400); RBC 3.32 XMIL (4.2-5.4); RDW 14.9 % (11.5-14.5); WBC 4.14 X1000 (4.8-10.8)
[2019-10-15 05:17] LABS: AGAP 9; BUN 18 mg/dL (8-22); CALCIUM 8.2 mg/dL (8.8-10.2); CHLORIDE 103 mmol/L (98-107); COSMO 285; CREATININE 0.9 mg/dL (0.5-0.9); ESTIMATED GFR > 60; GLUCOSE 106 mg/dL (70-104); POTASSIUM 3.3 mmol/L (3.5-5.1); SODIUM 142 mmol/L (136-145); TCO2 30 mmol/L (25-35)
[2019-10-15] MEDS: SYNTHROID PO SCH (06:16)
[2019-10-15] MEDS: PROTONIX PO SCH (06:16)
[2019-10-15] MEDS ORDERED: ZINC SULFATE PO SCH (09:00)
[2019-10-15] MEDS ORDERED: KLOR-CON PO ONE (09:43)
[2019-10-15] MEDS ORDERED: LASIX IV ONE (09:44)
[2019-10-15] MEDS: ASPIRIN PO SCH (09:52)
[2019-10-15] MEDS: LACTULOSE PO SCH ×2 (09:52→20:12)
[2019-10-15] MEDS: SINGULAIR PO SCH (09:52)
[2019-10-15] MEDS: TAMBOCOR PO SCH ×2 (09:52→20:15)
[2019-10-15] MEDS: VITAMIN B-12 PO SCH (09:53)
[2019-10-15] MEDS: XIFAXAN PO SCH ×2 (09:53→20:13)
[2019-10-15] MEDS: ULTRAM PO PRN (13:28)
[2019-10-15] MEDS ORDERED: AVAPRO PO ONE (13:51)
[2019-10-15] MEDS: DESYREL PO SCH (20:14)
[2019-10-15] MEDS: ROBAXIN PO SCH (20:14)
[2019-10-15] MEDS: LANTUS INSULIN SUBQ SCH (20:15)
--- NOTE | 2019-10-15 21:39 | PROGRESS NOTE ---
DATE: 10/15/2019 SUBJECTIVE: Upon my arrival this morning, patient was sitting upright in bed. She noted a mild increase in shortness of breath. Patient was treated with diuresis through the day. This evening, patient states she feels much better. She continues to have an intermittent cough, but denies fevers, chills, nausea, vomiting, shortness of breath, nausea, vomiting, or chest discomfort. P.o. intake is adequate. Energy level is slowly improving. OBJECTIVE: Vital signs: T-max 98.5 degrees, heart rate 66 to 78, respirations 16 to 19, blood pressure 148 to 195 over 37 to 60. General: Chronically ill appearing, no acute distress. Cardiovascular: Regular rate and rhythm. No significant murmurs, rubs, or gallops. Pulmonary: Decreased breath sounds at bilateral bases. Adequate air movement. Abdomen: Soft, nontender, nondistended. Positive bowel sounds. Extremities: Moves all extremities well. No significant clubbing, cyanosis, or edema. Dermatologic: Evaluation reveals no evidence of rash. LABORATORY DATA: White blood cell count 4.14, hemoglobin 9.5, hematocrit 29.1, platelet count 124,000, sodium 142, potassium 3.3, chloride 103, bicarb 30, BUN 18, creatinine 0.9, glucose 106, calcium 8.2. ASSESSMENT AND PLAN: 1. Volume overload with bilateral pleural effusions and shortness of breath--This likely is a consequence of decompensated cirrhosis. Patient is achieving improvement with diuresis. We will continue this for now. I anticipate transitioning to oral medications tomorrow and possible discharge home if her condition continues to improve. 2. Nonalcoholic cirrhosis--Unfortunately, this is nearing end-stage. We will continue her optimized medical regimen. We will address volume as above. 3. Hypertension--Patient's blood pressure remains elevated. A dose of irbesartan was again provided today. We will continue to follow this. She likely will need to continue this as an outpatient. 4. Reflux disease--We will continue patient on pantoprazole therapy. Symptoms are controlled. 5. Hypothyroidism--We will continue patient on replacement. 6. Atrial fibrillation--Patient is treated with flecainide therapy. She remains in a sinus- generated rhythm. 7. Profound weakness--Patient's condition is slowly improving. We will encourage patient to rise out of bed for all meals. 8. Disposition--At this point, patient continues to require [facility] care in a hospital setting. We will plan discharge home once appropriate. cc: Giovani Mariee MD
[2019-10-16] MEDS: ULTRAM PO PRN (00:19)
[2019-10-16 05:17] LABS: BASO# 0.03 X1000 (0.0-0.2); BASO% 0.7 % (0.0-0.8); EOS# 0.41 X1000 (0.0-0.7); EOS% 9.2 % (0.0-10.0); HEMATOCRIT 29.4 % (37.0-47.0); HEMOGLOBIN 9.6 g/dL (12.0-16.0); LYMPH# 1.55 X1000 (1.2-3.4); LYMPH% 34.8 % (20.5-51.1); MCH 28.4 PG (27-31); MCHC 32.7 g/dL (33-37); MONO% 11.2 % (1.7-9.3); MPV 8.9 FL (7.4-10.4); NEUT# 1.96 X1000 (1.4-6.5); NEUT% 44.1 % (42.2-75.2); PLT 120 X1000 (130-400); RBC 3.38 XMIL (4.2-5.4); RDW 14.9 % (11.5-14.5); WBC 4.45 X1000 (4.8-10.8)
[2019-10-16 05:37] LABS: AGAP 10; BUN 15 mg/dL (8-22); CALCIUM 8.5 mg/dL (8.8-10.2); CHLORIDE 102 mmol/L (98-107); COSMO 283; CREATININE 0.8 mg/dL (0.5-0.9); ESTIMATED GFR > 60; GLUCOSE 114 mg/dL (70-104); POTASSIUM 3.4 mmol/L (3.5-5.1); SODIUM 141 mmol/L (136-145); TCO2 29 mmol/L (25-35)
[2019-10-16] MEDS: PROTONIX PO SCH (06:21)
[2019-10-16] MEDS: SYNTHROID PO SCH (06:21)
--- NOTE | 2019-10-16 07:26 | Diag Imaging Result Doc PS360 ---
EXAM: CHEST-2 VIEWS INDICATION: shortness of breath TECHNIQUE: 2 views COMPARISON: 10/13/2019 FINDINGS: There has been an interval decrease in the pleural effusions, more prominently on the right. There is a small amount of pleural fluid on the right on the current study and still a moderate amount of pleural fluid on the left. There has been improvement of aeration at the lung bases. No new consolidations identified. Cardiac silhouette is stable. IMPRESSION: Interval improvement of pleural effusions bilaterally as described. Electronically signed by Jose Alberto Lou 10/16/2019 7:23 AM
[2019-10-16] MEDS ORDERED: LASIX IV ONE (08:08)
[2019-10-16] MEDS ORDERED: KLOR-CON PO ONE ×2 (08:08→18:04)
[2019-10-16] MEDS: ASPIRIN PO SCH (08:39)
[2019-10-16] MEDS: SINGULAIR PO SCH (08:39)
[2019-10-16] MEDS: VITAMIN B-12 PO SCH (08:39)
[2019-10-16] MEDS: LACTULOSE PO SCH (08:39)
[2019-10-16] MEDS: TAMBOCOR PO SCH (08:40)
[2019-10-16] MEDS: XIFAXAN PO SCH (08:40)
[2019-10-16] MEDS ORDERED: AVAPRO PO SCH (09:00)
[2019-10-16 16:52] VITALS: BP 182/44
--- NOTE | 2019-10-16 22:48 | DISCHARGE SUMMARY ---
ADMISSION DATE: 10/13/2019 DISCHARGE DATE: 10/16/2019 ADMISSION DIAGNOSIS: Profound shortness of breath. DISCHARGE DIAGNOSES: 1. Volume overload with bilateral pleural effusions with associated shortness of breath, likely secondary to decompensated cirrhosis. 2. 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 3. Hypertension, present on arrival. 4. Reflux disease, present on arrival. 5. Hypothyroidism, present on arrival. 6. Paroxysmal atrial fibrillation, present on arrival. 7. Profound weakness, improving. CONSULTATIONS: None. PROCEDURES: 1. A chest x-ray was performed on 10/13/2019 which revealed bilateral pleural effusions, pulmonary edema, and basilar atelectasis. Cardiomegaly. 2. CT pulmonary angiogram was performed on 10/13/2019 which revealed moderate bilateral pleural effusions. Cirrhosis and splenomegaly. TIPS shunt. 3. Chest x-ray was performed on 10/16/2019 which revealed interval improvement of pleural effusions bilaterally with residual small amount on the right and moderate on the left. HISTORY AND PHYSICAL EXAMINATION: See admit note. PHYSICAL EXAMINATION PRIOR TO DISCHARGE: Temperature 97.9 degrees, heart rate 61, respirations 16, blood pressure is 182/44. General: Chronically ill appearing, no acute distress. Cardiovascular: Regular rate and rhythm. No significant murmurs, rubs, or gallops. Pulmonary: Decreased breath sounds bilateral bases, significant improvement in air movement. Abdomen: Soft, nontender, nondistended. Positive bowel sounds. Extremities: Moves all extremities well. No significant clubbing, cyanosis, or edema. Dermatologic: Evaluation reveals no evidence of rash. LABORATORY DATA: White blood cell count 4.45, hemoglobin 9.6, hematocrit 29.4, platelet count 120,000. Sodium 141, potassium 3.4, chloride 102, bicarb 29, BUN 15, creatinine 0.8, glucose 114, calcium 8.5. HOSPITAL COURSE: Patient was admitted as per history and physical examination. Hospital course per condition is as follows. 1. Volume overload with bilateral pleural effusions and shortness of breath secondary to decompensated cirrhosis-upon admission, patient was noted to have profound shortness of breath. Chest x-ray and CT angiogram both confirmed significant pleural effusions. The patient was treated with IV diuresis while hospitalized. Historically, we have had difficulty reaching euvolemia secondary to renal dysfunction. With IV diuresis, patient clinically improved considerably. Renal function remained acceptable. At time of discharge, it was felt we had achieved adequate diuresis with clinical improvement, although with persistent effusions per chest x-ray. We will discharge patient with Lasix therapy daily except for on Sundays and Wednesdays. We will ask patient to keep a weight log. We will determine if further increase in frequency or dosage is necessary. 2. Nonalcoholic cirrhosis-unfortunately, patient is approaching end-stage. She is status post TIPS intervention in the past. We will continue her optimized medical management. We will address volume as described above. 3. Hypertension-the patient's blood pressure remained elevated while hospitalized. Over the course of the last several months, she has titrated off of Avapro therapy. This was resumed while hospitalized. We will continue this as an outpatient. We will ask patient to keep a log of her blood pressure between now and next visit. We will determine if further titration is necessary. 4. Reflux disease-patient was treated with pantoprazole therapy. Symptoms remained controlled. 5. Hypothyroidism-patient was maintained on thyroid replacement. We will follow this as an outpatient. 6. Paroxysmal atrial fibrillation-patient is currently treated with flecainide therapy. She remained in a sinus-generated rhythm throughout hospitalization. 7. Profound weakness-this likely was a consequence of volume overload and underlying cirrhosis. With volume improvement, patient did achieve improvement in her condition. We will continue to encourage activity as an outpatient. DISCHARGE CONDITION: Stable. DISPOSITION: Discharged to home. MEDICATIONS: 1. Aspirin 81 mg daily. 2. Vitamin B12 1000 mcg daily. 3. Flecainide 25 mg twice daily. 4. Lantus insulin 4 units subcu at bedtime. 5. Irbesartan 150 mg daily (new). 6. Lactulose 30 mL twice daily. 7. Levothyroxine 112 mcg daily. 8. Robaxin 500 mg at bedtime. 9. Singulair 10 mg daily. 10. Pantoprazole 40 mg daily. 11. Xifaxan 550 mg twice daily. 12. Tramadol 50 mg 3 times daily as needed. 13. Zinc 220 mg every other day. 14. Lasix 40 mg daily except on Sundays and Wednesdays. 15. Potassium chloride 8 mEq daily except on Sundays and Wednesdays. 16. Trazodone 100 mg at bedtime. FOLLOWUP: The patient is to follow up with me in approximately 1 to 2 weeks. cc: Giovani Mariee MD
== END 2019-10-16 19:23 | disposition home or self-care (01) | DRG 433 ==
LOC: ED 10:18 → 1N 16:32
PROVIDERS: ADMIT Internal Medicine; ATTEND Internal Medicine